=== PATIENT | female | born 1940 | race Hispanic/Latino ===

== ENCOUNTER → 2018-05-04 | Outpatient (CLI) | payer OTHER, MEDICARE ==
[~2018-05-04] MED LIST: AMLO10TA2 PO; ATOR20TA65 PO; FENO145T37 PO; GABA-529 PO; GLIP2.5T PO; HYDR12.54 PO; ISOS60TA4 PO; LEVO25TA54 PO; LINA5TAB PO; LISI40TA4 PO; METO50TA18 PO; PANT40TA25 PO; PARO10TA71 PO; REGADENOSON 0.4 MG/5 ML PF SYG IVP SCH; TRAM-355 PO
== END | disposition home or self-care (01) ==
LOC: SHCH 08:24
PROVIDERS: ATTEND Internal Medicine Cardiovascular Disease
DX: I25.10 Atherosclerotic heart disease of native coronary artery without angina pectoris (principal); I25.9 Chronic ischemic heart disease, unspecified
CPT/HCPCS: 78452; 93017; 96374; A9500 ×2; J2785

== ENCOUNTER 2020-12-27 18:19 | Observation (INO) | payer OTHER, MEDICARE ==
[~2020-12-27] VITALS: Ht 157.5 cm; Wt 79.5 kg
[~2020-12-27 18:19] MED LIST changes: +AMLO-258 PO; -AMLO10TA2 PO; +FENO145T26 PO; -FENO145T37 PO; -ISOS60TA4 PO; +ISOS60TA77 PO; -LISI40TA4 PO; +LISI40TA9 PO; -PANT40TA25 PO; +PANT40TA54 PO; -REGADENOSON 0.4 MG/5 ML PF SYG IVP SCH
[2020-12-27] MEDS ORDERED: ASPIRIN 81MG CHEW TAB ONE (18:40)
[2020-12-27 18:49] LABS: BASOPHILS % (AUTO) 0.6 % (0.0-5.0); EOSINOPHILS % (AUTO) 3.3 % (0.0-8.0); HEMATOCRIT 28.8 % (36-48); LYMPHOCYTES % (AUTO) 34.9 % (21.0-51.0); MEAN CORPUSCULAR HEMOGLOBIN 30.7 pg (27.0-33.0); MEAN CORPUSCULAR VOLUME 93.2 fL (79-99); MONOCYTES % (AUTO) 9.3 % (3.0-13.0); NEUTROPHILS % (AUTO) 51.7 % (40.0-77.0); PLATELET COUNT (AUTO) 245 K/uL (130-400); RED BLOOD CELL COUNT(AUTO) 3.09 MIL/uL (4.00-5.50); RED CELL DISTRIBUTION WIDTH 12.9 % (11.0-15.5); WHITE BLOOD COUNT (AUTO) 8.4 K/uL (4.8-10.8)
[2020-12-27 18:58] LABS: CREATININE 1.1 mg/dL (0.5-1.5); POTASSIUM 4.3 mmol/L (3.5-5.1)
[2020-12-27 19:00] LABS: INR 1.06 (0.85-1.15); PROTHROMBIN TIME 11.5 SEC (9.6-11.6)
[2020-12-27 19:03] LABS: ALBUMIN 3.4 g/dL (3.5-5.0); BILIRUBIN,TOTAL 0.3 mg/dL (0.2-1.0); TOTAL PROTEIN, SERUM 7.1 g/dL (6.0-8.3)
[2020-12-27] MEDS ORDERED: PANTOPRAZOLE 40 MG/VIAL ONE (19:40)
[2020-12-27] MEDS ORDERED: ONDANSETRON 4MG INJ IVP PRN (20:45)
[2020-12-27] MEDS ORDERED: ACETAMINOPHEN 325 MG TAB PO PRN (20:45)
[2020-12-27] MEDS ORDERED: GLUCAGON 1MG KIT 1 MG ML IM PRN (20:45)
[2020-12-27] MEDS ORDERED: DEXTROSE 50%-WATER 50 ML DISP.SYRIN IV PRN (20:45)
[2020-12-27] MEDS: INSULIN R PO SS1/2 SQ SCH (21:00)
[2020-12-27] MEDS: FAMOTIDINE 20MG VIAL IV SCH (21:00)
[2020-12-27 22:15] VITALS: BP 152/63
[2020-12-27] MEDS ORDERED: CARV12.511 PO (23:22)
[2020-12-27] MEDS ORDERED: GLIP5TAB11 PO (23:22)
[2020-12-27] MEDS ORDERED: MELO-106 PO (23:22)
[2020-12-27] MEDS ORDERED: METF-444 PO (23:22)
[2020-12-27] MEDS ORDERED: LISI1TAB53 PO (23:23)
[2020-12-27] MEDS ORDERED: MECL-160 PO (23:23)
[2020-12-27] MEDS ORDERED: AEC81 PO (23:23)
[2020-12-27] MEDS ORDERED: TERB250T89 PO (23:23)
[2020-12-28 03:18] VITALS: BP 142/72
[2020-12-28 03:56] LABS: BASOPHILS % (AUTO) 0.5 % (0.0-5.0); EOSINOPHILS % (AUTO) 3.8 % (0.0-8.0); LYMPHOCYTES % (AUTO) 29.7 % (21.0-51.0); MEAN CORPUSCULAR HEMOGLOBIN 30.1 pg (27.0-33.0); MEAN CORPUSCULAR HGB CONC 31.7 g/dL (32.0-36.0); MEAN CORPUSCULAR VOLUME 94.8 fL (79-99); MONOCYTES % (AUTO) 11.7 % (3.0-13.0); PLATELET COUNT (AUTO) 244 K/uL (130-400); RED BLOOD CELL COUNT(AUTO) 3.06 MIL/uL (4.00-5.50); RED CELL DISTRIBUTION WIDTH 13.1 % (11.0-15.5); WHITE BLOOD COUNT (AUTO) 7.4 K/uL (4.8-10.8)
[2020-12-28 04:14] LABS: HEMOGLOBIN A1C 6.1 % (4.0-6.0)
[2020-12-28 04:28] LABS: ALBUMIN 3.1 g/dL (3.5-5.0); BILIRUBIN,TOTAL 0.4 mg/dL (0.2-1.0); CREATININE 1.1 mg/dL (0.5-1.5); POTASSIUM 4.4 mmol/L (3.5-5.1); THYROID STIMULATING HORMONE 4.61 uIU/mL (0.36-3.74); TOTAL PROTEIN, SERUM 6.5 g/dL (6.0-8.3)
[2020-12-28] MEDS: INSULIN R PO SS1/2 SQ SCH ×4 (06:31→21:00)
[2020-12-28 08:00] VITALS: BP 141/56
[2020-12-28] MEDS ORDERED: ASPIRIN 81MG CHEW TAB PO SCH (09:00)
[2020-12-28 10:08] VITALS: BP 141/56
[2020-12-28 15:36] VITALS: BP 158/84
[2020-12-28 18:21] VITALS: BP 176/69
[2020-12-28 19:40] VITALS: BP 133/56
[2020-12-28] MEDS: FAMOTIDINE 20MG VIAL IV SCH (22:08)
[2020-12-29 00:08] VITALS: BP 145/69
[2020-12-29 04:01] VITALS: BP 156/65
[2020-12-29 05:49] LABS: BASOPHILS % (AUTO) 0.4 % (0.0-5.0); EOSINOPHILS % (AUTO) 3.1 % (0.0-8.0); HEMATOCRIT 29.5 % (36-48); LYMPHOCYTES % (AUTO) 28.6 % (21.0-51.0); MEAN CORPUSCULAR HEMOGLOBIN 31.3 pg (27.0-33.0); MEAN CORPUSCULAR HGB CONC 33.9 g/dL (32.0-36.0); MEAN CORPUSCULAR VOLUME 92.2 fL (79-99); NEUTROPHILS % (AUTO) 56.6 % (40.0-77.0); PLATELET COUNT (AUTO) 230 K/uL (130-400); RED CELL DISTRIBUTION WIDTH 12.7 % (11.0-15.5); WHITE BLOOD COUNT (AUTO) 6.8 K/uL (4.8-10.8)
[2020-12-29] MEDS: INSULIN R PO SS1/2 SQ SCH ×4 (05:58→20:51)
[2020-12-29 06:17] LABS: % IRON SATURATION 18.2 % (22-44)
[2020-12-29 06:40] LABS: CREATININE 1.1 mg/dL (0.5-1.5); POTASSIUM 4.3 mmol/L (3.5-5.1)
[2020-12-29 08:00] VITALS: BP 156/69
[2020-12-29 11:35] VITALS: BP 163/84
[2020-12-29] MEDS ORDERED: REGADENOSON 0.4 MG/5 ML PF SYG IVP SCH (11:45)
[2020-12-29] MEDS ORDERED: MECLIZINE HCL 25 MG TABLET PO PRN (12:45)
[2020-12-29] MEDS ORDERED: CLONIDINE HCL 0.2 MG TABLET PO ONE (13:55)
[2020-12-29 16:00] VITALS: BP 131/52
[2020-12-29 19:20] VITALS: BP 121/70
[2020-12-29] MEDS ORDERED: ATORVASTATIN 20 MG TABLET PO SCH (21:00)
[2020-12-29] MEDS ORDERED: FENOFIBRATE NANOCRYSTALLIZED 145 MG TAB PO SCH (21:00)
[2020-12-29] MEDS: CARVEDILOL 12.5 MG TABLET PO SCH (21:00)
[2020-12-29] MEDS: METFORMIN HCL 500 MG TABLET PO SCH (21:01)
[2020-12-29] MEDS: FAMOTIDINE 20MG VIAL IV SCH (21:08)
[2020-12-30 00:05] VITALS: BP 143/71
[2020-12-30] MEDS: CARVEDILOL 12.5 MG TABLET PO SCH ×2 (00:09→09:01)
[2020-12-30 04:04] VITALS: BP 145/68
[2020-12-30] MEDS: INSULIN R PO SS1/2 SQ SCH (06:09)
[2020-12-30] MEDS ORDERED: LEVOTHYROXINE 25 MCG TABLET PO SCH (06:30)
[2020-12-30 08:10] LABS: HEMATOCRIT 35.3 % (36-48); MEAN CORPUSCULAR HEMOGLOBIN 30.9 pg (27.0-33.0); MEAN CORPUSCULAR HGB CONC 32.9 g/dL (32.0-36.0); MEAN CORPUSCULAR VOLUME 93.9 fL (79-99); PLATELET COUNT (AUTO) 236 K/uL (130-400); RED BLOOD CELL COUNT(AUTO) 3.76 MIL/uL (4.00-5.50); RED CELL DISTRIBUTION WIDTH 12.7 % (11.0-15.5); WHITE BLOOD COUNT (AUTO) 7.4 K/uL (4.8-10.8)
[2020-12-30 08:29] LABS: ALBUMIN 3.3 g/dL (3.5-5.0); BILIRUBIN,TOTAL 0.8 mg/dL (0.2-1.0); POTASSIUM 4.8 mmol/L (3.5-5.1); TOTAL PROTEIN, SERUM 7.3 g/dL (6.0-8.3)
[2020-12-30 08:41] LABS: BASOPHILS % (MANUAL) 1 % (0-2); LYMPHOCYTES % (MANUAL) 18 % (22-44); MAN.DIFF COMMENT-IMPRESSION MANUAL DIFFERENTIAL; MONOCYTES % (MANUAL) 4 % (2-9); SEGMENTED NEUTROPHILS % 77 % (40-70)
[2020-12-30 08:43] LABS: PLATELET MORPHOLOGY COMMENT ADEQUATE
[2020-12-30] MEDS ORDERED: LISINOPRIL 20 MG TABLET PO SCH (09:00)
[2020-12-30] MEDS ORDERED: GLIPIZIDE 5 MG TABLET PO SCH (09:00)
[2020-12-30] MEDS ORDERED: ASPIRIN 81 MG EC TAB PO SCH (09:00)
[2020-12-30] MEDS ORDERED: HYDROCHLOROTHIAZIDE 25 MG TABLET PO SCH (09:00)
[2020-12-30] MEDS: METFORMIN HCL 500 MG TABLET PO SCH (09:01)
[2020-12-30 09:39] VITALS: BP 163/81
== END 2020-12-30 13:46 | disposition home or self-care (01) ==
LOC: EDH 18:19 → INTOOBSV 19:25 → EDHIP 19:25 → 4DH 22:21
PROVIDERS: ADMIT Internal Medicine Nephrology; ATTEND Internal Medicine Nephrology
DX: I25.119 Atherosclerotic heart disease of native coronary artery with unspecified angina pectoris (principal); Z20.822 Contact with and (suspected) exposure to COVID-19; E11.9 Type 2 diabetes mellitus without complications; D64.9 Anemia, unspecified; I10 Essential (primary) hypertension; N28.9 Disorder of kidney and ureter, unspecified; E03.9 Hypothyroidism, unspecified; F41.1 Generalized anxiety disorder; M19.90 Unspecified osteoarthritis, unspecified site; E78.00 Pure hypercholesterolemia, unspecified; E78.5 Hyperlipidemia, unspecified; I25.82 Chronic total occlusion of coronary artery; R09.89 Other specified symptoms and signs involving the circulatory and respiratory systems; I48.91 Unspecified atrial fibrillation; Z79.82 Long term (current) use of aspirin; Z79.84 Long term (current) use of oral hypoglycemic drugs; Z79.899 Other long term (current) drug therapy
CPT/HCPCS: 36415 ×4; 71045; 78452; 80048; 80053 ×3; 80061 ×2; 82550; 82728; 82948 ×10; 83036; 83540; 83550; 84443; 84484 ×3; 85025 ×4; 85610; 85730; 87426; 93005; 93017; 93306; 93356; 96374; 96376; 99291; A9500 ×2; C9113; G0378 ×63; J1815; J2785; J3490 ×2; U0003

== ENCOUNTER 2022-10-15 14:46 | Emergency (ER) | payer OTHER, MEDICARE ==
[~2022-10-15] VITALS: Ht 167.6 cm; Wt 70.3 kg
[~2022-10-15 14:46] MED LIST changes: +AEC81 PO; +CARV12.511 PO; -GABA-529 PO; -GLIP2.5T PO; +GLIP5TAB11 PO; -HYDR12.54 PO; -LINA5TAB PO; +LISI1TAB53 PO; -LISI40TA9 PO; +MECL-160 PO; +MELO-106 PO; +METF-444 PO; -METO50TA18 PO; -PANT40TA54 PO; -PARO10TA71 PO; +TERB250T89 PO; -TRAM-355 PO
[2022-10-15 15:10] VITALS: BP 147/70
[2022-10-15] MEDS ORDERED: TETANUS/DIPHTHERIA TOXOID [ADULT] 0.5 ML VIAL IM ONE ×2 (16:30→16:31)
[2022-10-15] MEDS ORDERED: OCTYL 2-CYANOACRYLATE 1 EACH TP ONE (16:31)
== END 2022-10-15 17:37 | disposition home or self-care (01) ==
LOC: EDH 14:46
DX: S91.104A Unspecified open wound of right lesser toe(s) without damage to nail, initial encounter (principal); E11.9 Type 2 diabetes mellitus without complications; E78.00 Pure hypercholesterolemia, unspecified; I10 Essential (primary) hypertension; Z90.49 Acquired absence of other specified parts of digestive tract; Z79.84 Long term (current) use of oral hypoglycemic drugs; Z79.899 Other long term (current) drug therapy; W45.8XXA Other foreign body or object entering through skin, initial encounter; Y93.89 Activity, other specified; Y92.89 Other specified places as the place of occurrence of the external cause; Y99.8 Other external cause status
CPT/HCPCS: 90471; 90714

== ENCOUNTER 2023-01-28 17:32 | Emergency (ER) | payer OTHER, MEDICARE ==
[~2023-01-28] VITALS: Ht 162.6 cm; Wt 73.9 kg
[2023-01-28 18:44] LABS: BASOPHILS % (AUTO) 0.7 % (0.0-5.0); HEMATOCRIT 25.6 % (36-48); LYMPHOCYTES % (AUTO) 31.8 % (21.0-51.0); MEAN CORPUSCULAR HEMOGLOBIN 30.7 pg (27.0-33.0); MEAN CORPUSCULAR HGB CONC 32.8 g/dL (32.0-36.0); MEAN CORPUSCULAR VOLUME 93.4 fL (79-99); NEUTROPHILS % (AUTO) 55.1 % (40.0-77.0); PLATELET COUNT (AUTO) 231 K/uL (130-400); RED BLOOD CELL COUNT(AUTO) 2.74 MIL/uL (4.00-5.50); RED CELL DISTRIBUTION WIDTH 13.4 % (11.0-15.5); WHITE BLOOD COUNT (AUTO) 7.4 K/uL (4.8-10.8)
[2023-01-28 19:28] LABS: CREATININE 1.2 mg/dL (0.5-1.5); POTASSIUM 3.4 mmol/L (3.5-5.1)
[2023-01-28 19:37] LABS: ALBUMIN 2.8 g/dL (3.5-5.0); TOTAL PROTEIN, SERUM 6.4 g/dL (6.0-8.3)
[2023-01-28] MEDS ORDERED: POTASSIUM BICARB/CIT AC 25 MEQ TABLET.EFF PO ONE (20:00)
[2023-01-28 20:38] VITALS: BP 185/69
== END 2023-01-28 20:43 | disposition home or self-care (01) ==
LOC: EDH 17:32
DX: I10 Essential (primary) hypertension (principal); E87.6 Hypokalemia; E11.9 Type 2 diabetes mellitus without complications; E78.00 Pure hypercholesterolemia, unspecified; Z79.1 Long term (current) use of non-steroidal anti-inflammatories (NSAID); Z79.82 Long term (current) use of aspirin; Z79.84 Long term (current) use of oral hypoglycemic drugs; Z79.899 Other long term (current) drug therapy; Z90.49 Acquired absence of other specified parts of digestive tract
CPT/HCPCS: 36415; 80053; 84484; 85025; 93005

== ENCOUNTER → 2023-02-02 | Outpatient (CLI) | payer OTHER, MEDICARE ==
[2023-02-02 13:40] LABS: CREATININE 1.3 mg/dL (0.5-1.5); POTASSIUM 3.6 mmol/L (3.5-5.1)
== END | disposition home or self-care (01) ==
LOC: LAB 11:29
PROVIDERS: ATTEND Internal Medicine Cardiovascular Disease
DX: I10 Essential (primary) hypertension (principal)
CPT/HCPCS: 36415; 80048

== ENCOUNTER 2023-02-03 11:34 | Emergency (ER) | payer OTHER, MEDICARE ==
[~2023-02-03] VITALS: Ht 167.6 cm; Wt 72.6 kg
[2023-02-03] MEDS ORDERED: LABETALOL 20MG SYG IV ONE (12:30)
[2023-02-03 12:48] LABS: BASOPHILS % (AUTO) 0.5 % (0.0-5.0); EOSINOPHILS % (AUTO) 1.8 % (0.0-8.0); HEMATOCRIT 23.3 % (36-48); MEAN CORPUSCULAR HEMOGLOBIN 30.6 pg (27.0-33.0); MEAN CORPUSCULAR HGB CONC 33.5 g/dL (32.0-36.0); MEAN CORPUSCULAR VOLUME 91.4 fL (79-99); MONOCYTES % (AUTO) 10.9 % (3.0-13.0); NEUTROPHILS % (AUTO) 53.5 % (40.0-77.0); PLATELET COUNT (AUTO) 222 K/uL (130-400); RED BLOOD CELL COUNT(AUTO) 2.55 MIL/uL (4.00-5.50); RED CELL DISTRIBUTION WIDTH 13.6 % (11.0-15.5); WHITE BLOOD COUNT (AUTO) 6.3 K/uL (4.8-10.8)
[2023-02-03] MEDS ORDERED: HYDRALAZINE 25MG TABLET PO SCH (13:00)
[2023-02-03] MEDS ORDERED: HYDRALAZINE 20MG/ML VIAL IV ONE (13:00)
[2023-02-03 13:18] LABS: ALBUMIN 2.5 g/dL (3.5-5.0); CREATININE 1.4 mg/dL (0.5-1.5); POTASSIUM 3.3 mmol/L (3.5-5.1); TOTAL PROTEIN, SERUM 5.9 g/dL (6.0-8.3)
[2023-02-03 13:57] VITALS: BP 150/54
== END 2023-02-03 14:09 | disposition home or self-care (01) ==
LOC: EDH 11:34
DX: R42 Dizziness and giddiness (principal); E11.9 Type 2 diabetes mellitus without complications; E78.00 Pure hypercholesterolemia, unspecified; I10 Essential (primary) hypertension; Z90.49 Acquired absence of other specified parts of digestive tract; Z79.899 Other long term (current) drug therapy; Z79.84 Long term (current) use of oral hypoglycemic drugs; Z79.82 Long term (current) use of aspirin; Z79.1 Long term (current) use of non-steroidal anti-inflammatories (NSAID)
CPT/HCPCS: 99285; 96374; 70450; 71045; 80053; 85025; 36415; 93005; J0360

== ENCOUNTER 2024-03-13 21:27 | Emergency (ER) | payer OTHER, MEDICARE ==
[~2024-03-13] VITALS: Ht 160 cm; Wt 65.8 kg
[~2024-03-13 21:27] MED LIST changes: -AEC81 PO; +ATOR10 PO; -CARV12.511 PO; +CARV25TA PO; +CHLO25TA3 PO; +CYAN-35 PO; +EMPA25TA PO; -GLIP5TAB11 PO; +HYDR50TA37 PO; -MECL-160 PO; +MECL-302 PO; -MELO-106 PO; +MELO-108 PO; +VITAD50000 PO
[2024-03-13 22:11] LABS: BASOPHILS # (AUTO) 0.07 K/uL (0.00-0.20); BASOPHILS % (AUTO) 0.6 % (0.0-5.0); EOSINOPHILS # (AUTO) 0.22 K/uL (0.00-0.70); EOSINOPHILS % (AUTO) 1.9 % (0.0-8.0); HEMATOCRIT 22.8 % (36-48); IMMATURE GRANULOCYTE ABSOLUTE 0.06 K/uL (0-1); LYMPHOCYTES # (AUTO) 3.4 K/uL (1.0-4.8); LYMPHOCYTES % (AUTO) 28.6 % (21.0-51.0); MEAN CORPUSCULAR HEMOGLOBIN 33.2 pg (27.0-33.0); MEAN CORPUSCULAR HGB CONC 35.1 g/dL (32.0-36.0); MEAN CORPUSCULAR VOLUME 94.6 fL (79-99); MONOCYTES % (AUTO) 8.4 % (3.0-13.0); NEUTROPHILS # (AUTO) 7.1 K/uL (1.8-7.7); PLATELET COUNT (AUTO) 263 K/uL (130-400); RED BLOOD CELL COUNT(AUTO) 2.41 MIL/uL (4.00-5.50); RED CELL DISTRIBUTION WIDTH 13.9 % (11.0-15.5); WHITE BLOOD COUNT (AUTO) 11.8 K/uL (4.8-10.8)
[2024-03-13 22:30] LABS: ALBUMIN 2.4 g/dL (3.5-5.0); BILIRUBIN,TOTAL 0.4 mg/dL (0.2-1.0); CREATININE 0.9 mg/dL (0.5-1.0); POTASSIUM 4.1 mmol/L (3.5-5.1); TOTAL PROTEIN, SERUM 6.2 g/dL (6.0-8.3)
[2024-03-13] MEDS ORDERED: IOHEXOL-350 75 ML VIAL IV ONE (23:19)
[2024-03-13 23:47] LABS: APPEARANCE,URINE CLOUDY (CLEAR); BILIRUBIN,URINE NEGATIVE (NEGATIVE); COLOR,URINE LIGHT-YELLOW (YELLOW); GLUCOSE, URINE (UA) NEGATIVE (NEGATIVE); KETONES,URINE NEGATIVE (NEGATIVE); LEUKOCYTE ESTERASE ,URINE 500 Leu/uL (NEGATIVE); NITRATE,URINE NEGATIVE (NEGATIVE); PROTEIN,URINE 100 mg/dL (NEGATIVE); UROBILINOGEN,URINE 0.2 mg/dL (0.2-1.0)
[2024-03-13 23:48] LABS: ADD UA MICROSCOPIC YES
[2024-03-13 23:50] LABS: BACTERIA,URINE MOD /HPF (None Seen); MUCUS,URINE RARE LPF (None Seen); SQUAMOUS EPITHELIAL CELL,UR FEW /HPF (0-2); WBC CLUMP FEW /HPF (0-1); WBC,URINE 51-100 /HPF (0-1)
[2024-03-14 00:32] VITALS: BP 158/55; PULSE 58; RESP 14; O2SAT 100
[2024-03-14] MEDS ORDERED: FINE10TA PO (00:57)
[2024-03-14] MEDS ORDERED: HYDR100T27 PO (00:57)
[2024-03-14] MEDS ORDERED: AMLO-257 PO (00:57)
[2024-03-14] MEDS ORDERED: CHOL378P14 PO (00:57)
[2024-03-14] MEDS ORDERED: ATOR40TA71 PO (00:57)
[2024-03-14] MEDS ORDERED: PANT40TA54 PO (00:57)
[2024-03-14] MEDS ORDERED: METO10TA3 PO (00:57)
[2024-03-14] MEDS ORDERED: LISI40TA9 PO (00:57)
[2024-03-14] MEDS ORDERED: LEVO50TA11 PO (00:57)
[2024-03-14] MEDS ORDERED: METF-446 PO (00:57)
== END 2024-03-14 02:15 ==
LOC: EDH 21:27
DX: D64.9 Anemia, unspecified (principal); E11.9 Type 2 diabetes mellitus without complications; E78.00 Pure hypercholesterolemia, unspecified; I10 Essential (primary) hypertension; Z79.84 Long term (current) use of oral hypoglycemic drugs; Z79.890 Hormone replacement therapy; Z79.899 Other long term (current) drug therapy
CPT/HCPCS: 99285; 74177; 71045; 82270; 80053; 85025; 86850; 86900; 86901; 87077; 87088; 87186; 81001; 36415; Q9967

== ENCOUNTER 2025-08-27 23:40 | Inpatient (IN) | payer OTHER, MEDICAID ==
[~2025-08-27] VITALS: Ht 167.6 cm; Wt 77.6 kg
[~2025-08-27 23:40] MED LIST changes: +AMLO-257 PO; +ATOR40TA71 PO; +CHOL378P14 PO; +FINE10TA PO; +HYDR100T15 PO; +LEVO50TA11 PO; +LISI40TA15 PO; +METF-446 PO; +METO10TA3 PO; +PANT40TA54 PO
[2025-08-28] VITALS (46 sets, daily range): BP systolic 114–152; BP diastolic 61–96; PULSE 80–113; RESP 14–28; TEMP 97.6–98.8; O2SAT 92–100
--- NOTE | 2025-08-28 00:04 | EKG ---
[facility] Test Date: 2025-08-27 Test Time: 23:59:55 Pat Name: HUSSAIN STRONG Department: ED Room: 215 Gender: F Ld Teacher: [id number] : [id number] Requested By: SUSIE SALINAS Order Number: [id number] Reading MD: Deonna Thompson Measurements Intervals Media Rate: 118 P: 82 OK: 148 QRS: -37 QRSD: 122 T: 115 QT: 340 QTc: 477 Interpretive Statements Sinus tachycardia Left bundle branch block Compared to ECG 11/24/2023 11:35:08 Left bundle-branch block now present Sinus rhythm no longer present Left anterior fascicular block no longer present Left ventricular hypertrophy no longer present Myocardial infarct finding no longer present Electronically Signed On 08-30-2025 10:14:24 CDT by Deonna Thompson Please click the below link to view image of tracing.
--- NOTE | 2025-08-28 00:25 | ERN ---
ED Note History of Present Illness Stated Complaint: SOB FROM [facility] Chief Complaint: Shortness of Breath Time Seen by MD: 23:46 Dictation: This is an 85-year-old female who was transferred from [facility] for evaluation of shortness of breath. Apparently when EMS picked her up her sats were 85% on 5 L O2 via nasal cannula they increased it to 10 L via non-rebreather mask gave her an albuterol nebulizer treatment and brought her to the emergency room for further evaluation. Her O2 sats improved to 95% by the time she came to the triage. She does report some wheezing. Temperature 98 pulse 117 respiratory rate 18 blood pressure 158/92 with a pulse oximetry of 95% on room air Her chronic medical problems include anemia, coronary artery disease, diabetes mellitus, hypertension, hypercholesterolemia, gastroesophageal reflux disease, hypothyroidism, history of CHF, CKD, Perez's esophagus Allergies: Coded Allergies: No Known Allergies (Verified Allergy, Unknown, 12/27/20) Home Meds Reported Medications Metoclopramide HCl (Metoclopramide HCl) 10 Mg Tablet, 1 TAB PO TID for acid reflux 03/14/24 Atorvastatin Calcium (Atorvastatin Calcium) 40 Mg Tablet, 1 TAB PO DAILY 03/14/24 Levothyroxine Sodium (Levothyroxine Sodium) 50 Mcg Tablet, 1 TAB PO DAILY 03/14/24 Metformin HCl (Metformin HCl) 1,000 Mg Tablet, 1 TAB PO BID for diabetes mellitus 03/14/24 Amlodipine Besylate (Amlodipine Besylate) 5 Mg Tablet, 1 TAB PO DAILY for blood pressure 03/14/24 Lisinopril (Lisinopril) 40 Mg Tablet, 1 TAB PO BID 03/14/24 Finerenone (Kerendia) 10 Mg Tablet, 1 TAB PO DAILY 03/14/24 Cholestyramine (with Sugar) (Cholestyramine Powder) 4 Gram Powder, 4 GM PO DAILY 03/14/24 Hydralazine HCl (Hydralazine HCl) 100 Mg Tablet, 1 TAB PO BID 03/14/24 Pantoprazole Sodium (Pantoprazole Sodium) 40 Mg Tablet.dr, 1 TAB PO DAILY 03/14/24 Meloxicam (Meloxicam) 15 Mg Tablet, 15 MG PO AM, TAB 03/21/23 Carvedilol (Carvedilol) 25 Mg Tablet, 25 MG PO BID, TAB 03/21/23 Cholecalciferol (Vitamin D3) 50,000 Units Cap, 66018 UNITS PO QWEEK, CAP 02/25/23 Cyanocobalamin (Vitamin B-12) (Vitamin B-12) 1,000 Mcg Capsule, 1000 MCG PO AD, CAP TWICE WEEKLY 02/25/23 Chlorthalidone (Chlorthalidone) 25 Mg Tablet, 25 MG PO DAILY, TAB 02/25/23 Atorvastatin Calcium (LIPITOR) 20 Mg Tab, 20 MG PO HS, TAB 02/25/23 Empagliflozin (Jardiance) 25 Mg Tablet, 25 MG PO DAILY, TAB 02/25/23 Hydralazine HCl (Hydralazine HCl) 50 Mg Tablet, 50 MG PO BID, TAB 02/25/23 Meclizine HCl (Meclizine HCl) 25 Mg Tablet, 25 MG PO Q6HPRN PRN for DIZZINESS, TAB 12/27/20 Terbinafine HCl (Terbinafine HCl) 250 Mg Tablet, 250 MG PO DAILY, TAB 12/27/20 Lisinopril/Hydrochlorothiazide (Lisinopril-Hctz 20-25 mg Tab) 1 Each Tablet, 1 EACH PO DAILY, TAB 12/27/20 Metformin HCl (Metformin HCl) 500 Mg Tablet, 500 MG PO BID, TAB 12/27/20 Isosorbide Mononitrate (Isosorbide Mononitrate ER) 60 Mg Tab.er.24h, 60 MG PO DAILY, TAB 12/08/16 Levothyroxine Sodium (Levothyroxine Sodium) 25 Mcg Tablet, 25 MCG PO DAILY, TAB 12/08/16 Fenofibrate Nanocrystallized (Fenofibrate) 145 Mg Tablet, 145 MG PO DAILY, TAB 12/08/16 Atorvastatin Calcium (Atorvastatin Calcium) 20 Mg Tablet, 20 MG PO HS, TAB 12/08/16 Amlodipine Besylate (Amlodipine Besylate) 10 Mg Tablet, 10 MG PO DAILY, TAB 12/08/16 Past Medical History Past Medical History: Anemia, CAD, Diabetes-Type II, GERD, High Cholesterol, Hypertension, Hypothyroid, Hypotension, Renal Disese Additional Past Medical Hx: HEART FAILURE, BARRETTS ESOPHAGUS, Surgical History: Other Surgical History Other: BLADDER SURGERY Family History: Negative Social History: Negative, Lives with family History: Not Applicable RN Note Reviewed/Agreed w/PFSH: Yes Review of System Dictation Constitutional: Negative for fever,chills, and weight loss Eyes: Negative for injury, pain,redness, and discharge ENT: Negative for injury,pain or swelling Cardiovascular: Negative for chest pain, palpitations, and edema Respiratory: Positive for shortness of breath, cough, and wheezing, Abdomen/GI: Negative for abdominal pain, nausea, vomiting, diarrhea, and constipation Back: Negative for injury and pain : Negative for injury, bleeding and discharge MS/Extremity: Negative for injury and deformity Skin: Negative for rash, and discoloration Neuro: Negative for headache, weakness, numbness, tingling, and seizure Psych: Negative for suicide ideation, homicidal ideation, and hallucinations Initial Vital Sign VS Vital Signs Date Time Temp Pulse Resp B/P (MAP) Pulse Ox O2 Delivery O2 Flow Rate FiO2 08/27/25 23:42 98.1 117 18 158/92 95 Nonrebreathing Mask 10.0 08/28/25 00:12 100 Physical Exam Dictation General: awake, alert, appears comfortable on BiPAP able to speak and answer questions Head/Face: Normocephalic, atraumatic Eyes: PERRL, EOMI, vision at baseline ENT: oral cavity clear, TMs clear, no signs of infection Neck: Trachea midline, supple, no nuchal rigidity Cardiovascular: RRR, normal S1/S2, No MRGs, no JVD Respiratory: Mild respiratory distress, diffuse wheezes Abdomen: Soft, non-tender, non-distended, normal bowel sounds, no guarding or rebound. Skin: Warm, dry, normal turgor, no rash MS/Extremity: Pulses equal, no cyanosis, neurovascular intact, FROM Neuro: COAx4, GCS 15, strength 5/5, CN 2-12 intact, normal cerebellar exam, normal gait, Psych: Normal behavior, mood, and affect normal Extremities-1+ edema without any palpable cords, Homans sign is negative Results (Laboratory/Radiology) Laboratory/Radiology Laboratory Tests Test 08/28/25 00:05 08/28/25 00:41 08/28/25 00:44 White Blood Count 17.5 K/uL (4.8-10.8) H Red Blood Count 2.37 MIL/uL (4.00-5.50) L Hemoglobin 7.6 g/dL (12.0-16.0) L Hematocrit 23.1 % (36-48) L Mean Corpuscular Volume 97.5 fL (79-99) Mean Corpuscular Hemoglobin 32.1 pg (27.0-33.0) Mean Corpuscular Hemoglobin Concent 32.9 g/dL (32.0-36.0) Red Cell Distribution Width 14.6 % (11.0-15.5) Platelet Count 254 K/uL (130-400) Mean Platelet Volume 10.4 fL (7.5-10.5) Immature Granulocyte % (Auto) 1.0 % (0-1) Neutrophils (%) (Auto) 84.4 % (40.0-77.0) H Lymphocytes (%) (Auto) 5.6 % (21.0-51.0) L Monocytes (%) (Auto) 8.9 % (3.0-13.0) Eosinophils (%) (Auto) 0.0 % (0.0-8.0) Basophils (%) (Auto) 0.1 % (0.0-5.0) Neutrophils # (Auto) 14.7 K/uL (1.8-7.7) H Lymphocytes # (Auto) 1.0 K/uL (1.0-4.8) Monocytes # (Auto) 1.6 K/uL (0.1-1.0) H Eosinophils # (Auto) 0.00 K/uL (0.00-0.70) Basophils # (Auto) 0.01 K/uL (0.00-0.20) Absolute Immature Granulocyte (auto 0.17 K/uL (0-1) Nucleated Red Blood Cells 0.0 % (0.0-0.19) White Cell Morphology Comment See comments Sodium Level 135 mmol/L (136-145) L Potassium Level 4.2 mmol/L (3.5-5.1) Chloride Level 97 mmol/L (101-111) L Carbon Dioxide Level 18 mmol/L (21-32) L Blood Urea Nitrogen 77 mg/dL (7-18) *H Creatinine 3.0 mg/dL (0.5-1.0) H Glomerular Filtration Rate Calc 15 mL/min (>90) Random Glucose 379 mg/dL (70-105) H Lactic Acid Level 5.8 mmol/L (0.8-2.5) H Total Calcium 7.5 mg/dL (8.5-10.1) L Total Creatine Kinase 323 U/L (21-232) H Troponin I High Sensitivity 2392.4 ng/L (4-50) *H Blood Gas Specimen Type Arterial Arterial Blood pH 7.392 (7.350-7.450) Arterial Blood Partial Pressure CO2 29 mmHg (32-45) L Arterial Blood Partial Pressure O2 84.4 mmHg (83.0-108.0) Arterial Blood HCO3 17.2 mmol/L (21.0-28.0) L Arterial Blood Oxygen Saturation 96.4 % (94.0-98.0) Arterial Blood Base Excess -6.2 mmol/L (-2.0-3.0) L Blood Gas Temperature 37.0 CELSIUS (35.5-37.0) Blood Gas Flow-by 15.00 L/min (0.00-15.00) Blood Gas Vent Mode RR NRB (ROOM AIR) FiO2 100.0 % Blood Gas Specimen Comment CONCHITA LEO Influenza Type A Antigen Negative For Type A Influenza Type B Antigen Negative For Type B SARS-CoV-2 Antigen (Rapid) PRESUMPTIVE NEGATIVE Group A Streptococcus Rapid negative (NEGATIVE) Labs Reviewed?: Yes EKG Comment: 12 lead EKG done on 08/27/2025 at 11:59 p.m. shows a heart rate of 118, FL interval 148, QRS 122, QT/QTC 340/477 Impression sinus tachycardia with diffuse ST-T changes and left bundle branch block. EKG rhythm strip shows sinus tachycardia with a slightly prolonged QT nonspecific changes. Interpreted by ER MD Dr. Inman Ultrasound Comment: Echocardiogram-2020 Conclusion There is hypokinesis in the apical septal and apical wall. Global Strain is normal -21. LVEF is 50-55%. There is mild left ventricular hypertrophy. DICTATED BY: CRISTIANA COBIAN MD DATE: 12/29/20 1205 ELECTRONICALLY SIGNED BY: CRISTIANA COBIAN MD DATE: 12/29/[id number] 0 ED Course ED Course Orders Procedure Category Date Status Time Iv Insertion CPOE 08/27/25 Transmitted 23:52 Pulse Ox(Continuous) RT 08/27/25 Transmitted 23:52 Vital Signs Per CPOE 08/27/25 Transmitted Routine 23:52 12 Lead Ekg Tracing- EKG 08/27/25 Complete Technical 23:52 Cbc With Differential LAB 08/27/25 Complete 23:52 Blood Cult ANANYA 08/27/25 In Process 23:52 Urinalysis Profile LAB 08/27/25 Logged 23:52 Culture Urine ANANYA 08/27/25 Logged 23:52 Lactic Acid LAB 08/27/25 Complete 23:52 Basic Metabolic Panel LAB 08/27/25 Complete 23:52 Covid19 (Sars Antigen LAB 08/27/25 Complete Rapid) 23:54 Influenza Type A & B, LAB 08/27/25 Complete Rapid 23:54 Rapid (Group A Strep) LAB 08/27/25 Complete 23:54 Chest 1vw RAD 08/27/25 Resulted 23:56 Ipratropium/Albuterol PHA 08/28/25 Complete Neb (Duoneb) 00:30 Arterial Blood Gas RT 08/28/25 Transmitted 00:25 Cardiac Panel LAB 08/28/25 Complete 00:05 Arterial Blood Gas LAB 08/28/25 Complete 00:41 Bipap Settings RT 08/28/25 Transmitted 00:54 Methylprednisolone PHA 08/28/25 Complete Succ 125mg (Solu-Medr 01:00 B-Type Natriuretic LAB 08/28/25 In Process Peptide 00:55 Lactic Acid LAB 08/28/25 In Process 00:55 Initiate Heparin LEXIE 08/28/25 In Process Treatment Pro 00:55 Cbc With Differential LAB 08/29/25 Verified 04:00 Cbc With Differential LAB 09/01/25 Verified 04:00 Cbc With Differential LAB 09/04/25 Verified 04:00 Partial LAB 08/28/25 In Process Thromboplastin Time 00:55 Heparin 5,000 Unit PHA 08/28/25 In Process Vial (Heparin 5,000 U 02:00 Heparin 25,000 PHA 08/28/25 In Process Units/250ml D5w 02:00 Heparin Protocol CPOE 08/28/25 Transmitted Monitoring 00:55 Ketone Blood LAB 08/28/25 In Process Quantitative 00:55 Furosemide 40mg Vial PHA 08/28/25 Verified (Lasix 40mg Vial) 02:00 Zosyn 3.375gm+Ns 50ml PHA 08/28/25 Verified (Zosyn 3.375gm+Ns 02:00 Vancomycin 1g/250ml PHA 08/28/25 Verified Kit (Vancomycin 1g/2 02:00 Current Medications Medications (Trade) Dose Ordered Sig/David Route PRN Reason Start Time Stop Time Status Last Admin Dose Admin Albuterol (DUOneb) 1 UDVIAL ONCE ONCE IH 08/28/25 00:30 08/28/25 00:31 DC 08/28/25 00:19 Heparin Sodium (Porcine) (HEParin 5,000 UNIT VIAL) *calculation based on ACTUAL B... AD PRN IV HEPARIN PROTOCOL 08/28/25 02:00 09/27/25 01:59 Heparin Sodium/ Dextrose 250 ml @ 0 mls/hr Q6H IV 08/28/25 02:00 09/27/25 01:59 Methylprednisolone Sodium Succinate (Solu-medROL 125MG) 125 mg ONCE ONCE IVP 08/28/25 01:00 08/28/25 01:03 DC 08/28/25 01:45 Vital Signs Date Time Temp Pulse Resp B/P (MAP) Pulse Ox O2 Delivery O2 Flow Rate FiO2 08/28/25 01:18 119 18 151/83 99 Bi-PAP+ 50 08/28/25 00:50 111 28 50 08/28/25 00:19 113 18 08/28/25 00:12 98.2 113 21 158/83 98 Non-Rebreather+ 15 100 08/27/25 23:42 98.1 117 18 158/92 95 Nonrebreathing Mask 10.0 We will perform diagnostic labs, advanced imaging and administer medications according to the patient's complaint. Once the results are available, will review and personally interpreted the labs to rule out any acute life- threatening emergency the trach require immediate intervention and treatment. I will then re-evaluate the patient after treatment and diagnostic exams have return to determine whether the patient requires any further testing, can safely be discharged home or need further admission to hospital for additional treatment and evaluation. 2:05 a.m. Patient accepted by patient to intensive care unit and further management Medical Decision Making MDM Differential diagnosis: Pneumonia, decompensated congestive heart failure, sepsis, new coronary event, pulmonary thromboembolic disease This is an 85-year-old female who was transferred from [facility] for evaluation of shortness of breath. Apparently when EMS picked her up her sats were 85% on 5 L O2 via nasal cannula they increased it to 10 L via non-rebreather mask gave her an albuterol nebulizer treatment and brought her to the emergency room for further evaluation. Her O2 sats improved to 95% by the time she came to the triage. She does report some wheezing. Temperature 98 pulse 117 respiratory rate 18 blood pressure 158/92 with a pulse oximetry of 95% on room air Her chronic medical problems include anemia, coronary artery disease, diabetes mellitus, hypertension, hypercholesterolemia, gastroesophageal reflux disease, hypothyroidism, history of CHF, CKD, Perez's esophagus 1:00 a.m. labs reviewed CBC showed a white count of 17.5 hemoglobin of 7.6 platelets 254. Arterial blood gas on 100% non-rebreather mask shows a pH of 7.39 pCO2 of 29 PO2 of 84 BNP 7 is significant for sodium of 135 chloride 97 bicarb 18 BUN and creatinine are 77 and 3.0 with a glucose of 379 lactic acid 5.8. First set of troponin is 2392 and total CK is 323 Chest x-ray is pending , patient initiated on heparin drip. She has no chest pain, did not want to take aspirin 2:00 a.m. chest x-ray shows extensive right lung pneumonia with a parapneumonic effusion. There might be a slight pleural effusion on the left side as well Swabs for influenza COVID and strep were all negative. Serum ketones are pending We will admit patient to intensive care unit for close monitoring Empiric Zosyn and vancomycin given to cover sepsis and pneumonia as patient is from a snf facility Rationale: Tests considered and ordered secondary to shared decision making include: labs, ECG and radiology Previous outside records reviewed: Old ER visits. Risk of complication and/or morbidity or mortality of patient management: None Medications-Per medication reconciliation Need for hospitalization: Patient does meet criteria for hospitalization. Need for emergency major/minor surgery: No There are no social concerns with this patient. Prescription drug management Prescriptions will include symptomatic care Patient's prior external medical records from other ER visits were reviewed by me as indicated. Prior testing and results from previous visits were reviewed. Prior tests were taken into account with medical decision making and resource utilization, independent historian/historians were used to obtain complete medical history. I independently interpreted the test that were performed, results were reviewed by me and considered findings on radiology if ordered. Medical management and examination interpretation discussions were had by me w ith other qualified healthcare professionals as indicated for the patient's care. Problem List Problem List: (1) Severe sepsis (2) Acute respiratory failure with hypoxia (3) BiPAP (biphasic positive airway pressure) dependence (4) Acute non-ST elevation myocardial infarction (NSTEMI) (5) Lactic acidosis (6) Acute on chronic renal failure (7) Chronic anemia (8) Increased anion gap metabolic acidosis (9) Pneumonia (10) Parapneumonic effusion Critical Care Note Critical Time: 60 minutes Comment(s) Life-threatening illness; severe sepsis, pneumonia with parapneumonic effusion, acute respiratory failure with hypoxia, BiPAP dependence, lactic acidosis Risk of morbidity mortality-high Complexity of medical decision making-high (X) high probability of sudden clinically significant deterioration in the patient's condition required the highest level of my preparedness to intervene urgently. I provided critical care services requiring my direct and personal management as noted below; (x) chart data review (x) reviewing nurse's notes and/charts (x) documentation time (x) consultation collaboration on findings and therapy options (x) medication orders and management (x) re-evaluations (x) care, transfer of care, and discharge plans (x) ordering and interpreting studies (x) ordering and reviewing labs (x) obtaining necessary history from family, EMS, [facility], private MD, surrogate decision makers because patient was unable to give history due to limitations in the mental status (x) aggregate critical care time was ( 67 ) minutes. This includes only time during which I was engaged in work directly related to the patient's care as described above whether at the bedside or elsewhere in the ER while the patient was critical. My time did not include minutes spent treating any other patients simultaneously or on activities that did not directly contribute to the patient's treatment. It did not include time spent performing other reported procedures or services of residents if any. Miracle WHITFIELDCP DX & DISP Disposition: Inpatient Decision to Admit Time: 02:00 Departure Impression: Primary Impression: Severe sepsis Additional Impressions: Acute non-ST elevation myocardial infarction (NSTEMI), Acute respiratory failure with hypoxia, Acute on chronic renal failure, Generalized weakness, Pneumonia, Parapneumonic effusion Condition: Stable Additional Instructions: Patient was informed of all the diagnostic labs and procedures conducted in the emergency room today and demonstrated understanding of the results. I personally reviewed and interpreted all the diagnostic exams performed in the ER today. The patient will be admitted to the hospital for further treatment and evaluation. Disposition-admit to facility Condition-stable/guarded Course-uncertain at this time Pain status-decreased Assessment-exam unchanged Admission Certification- I certify that the patients status is appropriate and is based on my best clinical judgment and the patient's condition as documented in the medical records Referrals: CHANCE MEDINA MD (PCP) MIRACLE INMAN MD Aug 28, 2025 00:25
[2025-08-28 00:42] LABS: ABG BASE EXCESS -6.2 mmol/L (-2.0-3.0); ABG HCO3 17.2 mmol/L (21.0-28.0); ABG OXYGEN SATURATION 96.4 % (94.0-98.0); ABG PCO2 29 mmHg (32-45); ABG PH 7.392 (7.350-7.450); PO2, ARTERIAL BG 84.4 mmHg (83.0-108.0); TEMPERATURE, CELSIUS BG 37.0 CELSIUS (35.5-37.0); VENT MODE, BG RR NRB (ROOM AIR)
[2025-08-28 00:44] LABS: CREATINE KINASE, TOTAL 323.0 U/L (21-232); CREATININE 3.0 mg/dL (0.5-1.0); GLOMERULAR FILTR. RATE CALC 15.0 mL/min (>90); GLUCOSE,RANDOM 379.0 mg/dL (70-105); IMMATURE GRANULOCYTE ABSOLUTE 0.17 K/uL (0-1); NUCLEATED RED BLOOD CELLS 0.0 % (0.0-0.19); PLATELET COUNT (AUTO) 254 K/uL (130-400); RED BLOOD CELL COUNT(AUTO) 2.37 MIL/uL (4.00-5.50); RED CELL DISTRIBUTION WIDTH 14.6 % (11.0-15.5); SODIUM SERUM 135.0 mmol/L (136-145); WHITE BLOOD COUNT (AUTO) 17.5 K/uL (4.8-10.8)
[2025-08-28 00:45] LABS: UREA NITROGEN, BLOOD 77.0 mg/dL (7-18)
[2025-08-28 01:19] LABS: RAPID GROUP A STREP negative (NEGATIVE)
[2025-08-28 01:30] LABS: COVID19 (SARS ANTIGEN RAPID) PRESUMPTIVE NEGATIVE (NEGATIVE); INFLUENZA TYPE A Negative For Type A (NEGATIVE); INFLUENZA TYPE B Negative For Type B (NEGATIVE)
--- NOTE | 2025-08-28 01:52 | HMCIMG ---
EXAM: CR Chest, 1 view CLINICAL HISTORY: Shortness of breath. COMPARISON: Chest radiograph dated 03/13/2024. FINDINGS: Multifocal airspace disease in the bilateral lung marley, more pronounced on the right side, concerning multifocal pneumonia. Small pleural effusions bilaterally, more pronounced on the right side. No pneumothorax. Stable cardiac size. Stable mild COPD. No acute osseous abnormality. IMPRESSION: Multifocal airspace disease in the bilateral lung marley, more pronounced on the right side, concerning multifocal pneumonia. Small pleural effusions bilaterally, more pronounced on the right side. Overall, there is an interval worsening compared to the previous examination. /Lovely
[2025-08-28] MEDS: ZOSYN 3.375GM +NS 50ML IV ONE (02:07)
[2025-08-28] MEDS ORDERED: PHARMACY COMMUNICATION MISC SCH ×2 (02:30→16:00)
--- NOTE | 2025-08-28 03:00 | NUR ---
PLACED ON A [facility] SYSTEM.
--- NOTE | 2025-08-28 03:21 | NUR ---
SETH MACHINE ASSISTANT CALLED FOR CONSULT, NO ORDERS GIVEN.
[2025-08-28] MEDS: VANCOMYCIN KIT 1 GM/250 ML IV.KIT IV ONE (04:06)
--- NOTE | 2025-08-28 04:37 | NUR ---
SON AT BEDSIDE.
[2025-08-28 05:12] LABS: APPEARANCE,URINE CLEAR (CLEAR); GLUCOSE, URINE (UA) 200 mg/dL (NEGATIVE); LEUKOCYTE ESTERASE ,URINE 25 Leu/uL (NEGATIVE); NITRATE,URINE NEGATIVE (NEGATIVE); OCCULT BLOOD,URINE SMALL (NEGATIVE)
[2025-08-28 05:15] LABS: ADD UA MICROSCOPIC YES
[2025-08-28 05:37] LABS: SQUAMOUS EPITHELIAL CELL,UR RARE /HPF (0-2)
[2025-08-28 07:25] LABS: IMMATURE GRANULOCYTE ABSOLUTE 0.22 K/uL (0-1); NUCLEATED RED BLOOD CELLS 0.0 % (0.0-0.19); PLATELET COUNT (AUTO) 224 K/uL (130-400); RED BLOOD CELL COUNT(AUTO) 2.36 MIL/uL (4.00-5.50); RED CELL DISTRIBUTION WIDTH 14.5 % (11.0-15.5); WHITE BLOOD COUNT (AUTO) 15.6 K/uL (4.8-10.8)
--- NOTE | 2025-08-28 07:43 | CONS ---
[facility] CONSULTATION NOTE Date Patient Seen: Aug 28, 2025 Time of Visit: 07:42 Supervising Physician: RAJENDRA TELLEZ MD Reason for Consultation: [facility] Primary Care Physician: CHANCE LAWS MD ATTENDING PHYSICIAN: DR JOSE WELSH Outpatient Specialists: [ ] Inpatient Consults: [facility], CARDIOLOGY - DR BHATTI PROBLEM LIST: Sepsis with MODS, POA Bilateral multifocal pneumonia, POA Suspected healthcare associated pneumoniae, POA Acute hypoxemic respiratory failure, POA requiring NIV Acute complicated cystitis POA Acute on chronic NSTEMI CAD KOSTA CKD Leukocytosis with left shift Normocytic normochromic anemia Hypertension Hyperlipidemia Hypomagnesemia Hyperglycemia in the presence of Type 2 diabetes mellitus Hypothyroidism From [place] [facility] HPI: This is an elderly 85-year-old female with a past medical history of coronary artery disease, hypertension, hyperlipidemia, type 2 diabetes mellitus, hypothyroidism, CKD, Perez's esophagus, and prior bladder surgery who presented to the ED for evaluation of shortness of breaths and chest pain. Per son who is at the bedside she was brought into the ED from [place] [facility] for chest pain and shortness of breaths. He reports that the pain was constant and did not appeared to be alleviated with rest. She was brought via EMS to the ED and initial vital signs were temperature 98.1 heart rate of 117 respiratory rate of 18 blood pressure 158/92 with a saturation of 95% on 10 L via non-rebreather mask. Pertinent laboratory shows: White count is 15.6 hemoglobin of 7.5 hematocrit of 22 platelet count of 224 K neutrophils of 88. Initial chemistries shows sodium of 135 chloride of 97 carbon dioxide of 18 BUN of 77 creatinine of 3.0 GFR of 15 glucose of 379 mg/dL ketones were 0.1-for ketones lactic acid of 5.8 decreasing to 4.0 initial troponin was 2392 BNP of 2520. She was negative for influenza A/B and COVID-19. She was also negative for strep throat. MRSA of the nares positive. UA positive for protein of 200 glucose of 200 small occult blood, leukocyte esterase of 25 RBCs 2-5 WBCs of 60 10 and hyaline casts of 2-5. On blood gas patient has a pH of 7.39 pCO2 of 29 PO2 of 84.4 and bicarb of 17.2 with a O2 saturation 96.4. She was started on BiPAP in the ED for moderate respiratory distress. On assessment patient is awake alert and oriented x3. She denied current chest pain with me. She reported some shortness of breaths with the exertion. Reports she felt better with the O2, she was given a dose of Zosyn and vancomycin in the ED was started on heparin drip but discontinued by paralegal legal secretary. Aspirin and Plavix was started per cardiology is as well. We will wean pt off bipap and use NC for now on 3L. Goal of this conversation was to discuss goals of care. I discussed regarding what advanced directives in detail and what advanced care planning entails. We also discussed CODE STATUS. I informed the patient that in the case of cardiopulmonary demise, resuscitation efforts including chest compressions and intubations do not lead to ideal postresuscitative outcomes. We discussed patient's particular disease processes and how this could be potentially impacting the patient's outcome in the event of a cardiopulmonary arrest. All questions related to resuscitation, CODE STATUS, advanced directives were answered in detail. Patient wishes to not receive resuscitated measures such as CPR or intubation. We will change CODE STATUS to DO NOT INTUBATE and DO NOT RESUSCITATE. PAST MEDICAL HX: see above PAST SURGICAL HX: noncontributory SOCIAL HISTORY: No tobacco, ETOH, or illicit drug use Coded Allergies: No Known Allergies (Verified Allergy, Unknown, 12/27/20) ceftriaxone (Unverified Allergy, Unknown, 08/28/25) dupilumab (Unverified Allergy, Unknown, 08/28/25) hydrochlorothiazide (Unverified Allergy, Unknown, 08/28/25) mirabegron (Unverified Allergy, Unknown, 08/28/25) oxybutynin (Unverified Allergy, Unknown, 08/28/25) pioglitazone (Unverified Allergy, Unknown, 08/28/25) REVIEW OF SYSTEMS: Const: no fever, fatigue, or weight changes Eyes: no recent vision problems ENT: No congestion, ear pain, or sore throat C/V: + chest pain, palpitations, shortness for breath Resp:+ shortness of the breath GI: No abdominal pain, nausea, vomiting, constipation, or diarrhea : No incontinence of or dyuria M/S: No joint or pain swelling Skin: No rash Neuro: no headache, focal numbness, or weakness, dizziness or seizures Psych: no depression or anxiety Heme: no abnormal bruising or bleeding Lymph: no swollen glands PHYSICAL EXAM: GENERAL: alert, weak, awake oriented x 3 HEENT: EOMI, Sclera non icteric, moist mucosa NECK: Supple, no JVD, trachea midline LUNGS: Diminished breath sounds bilaterally. No wheezes HEART: Regular rate and rhythm. Normal S1 and S2, without murmurs ABD: Abdomen soft, nontender. Bowel sounds present EXT: No clubbing cyanosis or edema NEURO: Alert and oriented to person, follows commands Vital Signs (last 8hr) Date Time Temp Pulse Resp B/P (MAP) Pulse Ox O2 Delivery O2 Flow Rate FiO2 08/28/25 07:38 98.4 103 21 160/94 100 Bi-PAP+ 10.0 50 08/28/25 06:46 102 20 50 08/28/25 06:42 97 18 154/92 100 Bi-PAP+ 50 08/28/25 06:08 114 22 153/92 100 Bi-PAP+ 50 08/28/25 05:21 99 18 150/92 100 Bi-PAP+ 50 08/28/25 04:38 18 18 155/95 100 Bi-PAP+ 50 08/28/25 03:55 98 16 155/95 100 Bi-PAP+ 50 08/28/25 03:00 113 21 50 08/28/25 02:58 106 18 157/86 100 Bi-PAP+ 15 50 08/28/25 02:33 108 18 164/92 100 Bi-PAP+ 50 08/28/25 01:18 119 18 151/83 99 Bi-PAP+ 50 08/28/25 00:50 111 28 50 08/28/25 00:19 113 18 08/28/25 00:12 98.2 113 21 158/83 98 Non-Rebreather+ 15 100 LABS: Hematology Labs: Test 08/28/25 07:18 08/28/25 00:05 Range/Units White Blood Count 15.6 H 4.8-10.8 K/uL Red Blood Count 2.36 L 4.00-5.50 MIL/uL Hemoglobin 7.5 L 12.0-16.0 g/dL Hematocrit 22.0 L 36-48 % Mean Corpuscular Volume 93.2 79-99 fL Mean Corpuscular Hemoglobin 31.8 27.0-33.0 pg Mean Corpuscular Hemoglobin Concent 34.1 32.0-36.0 g/dL Red Cell Distribution Width 14.5 11.0-15.5 % Platelet Count 224 130-400 K/uL Mean Platelet Volume 10.1 7.5-10.5 fL Immature Granulocyte % (Auto) 1.4 H 0-1 % Neutrophils (%) (Auto) 88.0 H 40.0-77.0 % Lymphocytes (%) (Auto) 7.5 L 21.0-51.0 % Monocytes (%) (Auto) 3.0 3.0-13.0 % Eosinophils (%) (Auto) 0.0 0.0-8.0 % Basophils (%) (Auto) 0.1 0.0-5.0 % Neutrophils # (Auto) 13.7 H 1.8-7.7 K/uL Lymphocytes # (Auto) 1.2 1.0-4.8 K/uL Monocytes # (Auto) 0.5 0.1-1.0 K/uL Eosinophils # (Auto) 0.00 0.00-0.70 K/uL Basophils # (Auto) 0.02 0.00-0.20 K/uL Absolute Immature Granulocyte (auto 0.22 0-1 K/uL Nucleated Red Blood Cells 0.0 0.0-0.19 % White Cell Morphology Comment See comments Chemistry Labs: Test 08/28/25 07:18 08/28/25 01:37 08/28/25 00:05 Range/Units Lactic Acid Level 1.5 0.8-2.5 mmol/L Whole Blood Ketones Quantitative 0.1 0.0-0.6 mmol/L B-Type Natriuretic Peptide 2520 H 0-100 pg/mL Sodium Level 135 L 136-145 mmol/L Potassium Level 4.2 3.5-5.1 mmol/L Chloride Level 97 L 101-111 mmol/L Carbon Dioxide Level 18 L 21-32 mmol/L Blood Urea Nitrogen 77 *H 7-18 mg/dL Creatinine 3.0 H 0.5-1.0 mg/dL Glomerular Filtration Rate Calc 15 >90 mL/min Random Glucose 379 H 70-105 mg/dL Total Calcium 7.5 L 8.5-10.1 mg/dL Total Creatine Kinase 323 H 21-232 U/L Troponin I High Sensitivity 2392.4 *H 4-50 ng/L Coagulation Labs: Test 08/28/25 01:37 Range/Units Activated Partial Thromboplast Time 24.2 L 26.3-35.5 SEC DIAGNOSTICS / RADIOLOGY RESULTS: [[facility] [address] [place] [address] IMAGING REPORT Signed PATIENT: HUSSAIN STRONG MR#: [id number] : 1940 SEX: F AGE: 85 LOCATION: [facility] ORDER 55 STATUS: REG ER REPORT#: [id number] SERVICE 55 REASON: SOB ORDERING PHYSICIAN: SUSIE SALINAS MD PROCEDURE: CXR1VW - CHEST 1VW EXAM: CR Chest, 1 view CLINICAL HISTORY: Shortness of breath. COMPARISON: Chest radiograph dated 03/13/2024. FINDINGS: Multifocal airspace disease in the bilateral lung marley, more pronounced on the right side, concerning multifocal pneumonia. Small pleural effusions bilaterally, more pronounced on the right side. No pneumothorax. Stable cardiac size. Stable mild COPD. No acute osseous abnormality. IMPRESSION: Multifocal airspace disease in the bilateral lung marley, more pronounced on the right side, concerning multifocal pneumonia. Small pleural effusions bilaterally, more pronounced on the right side. Overall, there is an interval worsening compared to the previous examination. /[facility] DICTATED BY: TYLER FLORES Jr., MD DATE: 08/28/25251 ELECTRONICALLY SIGNED BY: TYLER FLORES Jr., MD DATE: 08/28/25251 ] PLAN Plan: CBC, CMP, procalcitonin, blood cultures, lactic acid check for COVID-19, check for influenza a and B-all neg MRSA + nares start zyvox CT chest respiratory sputum culture ABG if respiratory failure suspected emperic antibiotics for HAP Tailor antibiotics to cultures consider steroids if no improvement reconsider empiric treatment if no improvement in 72 hours Procalcitonin Monitor respiratory status closely Maintain O2 sats above 92% Continuous telemetry monitoring Strict I&O 2D echo Fluid restriction 1.5-2 L Beta jessica hold MARGARITA-inhibitor Aspirin and plavic per cardiology recomendations Statin Sodium restriction Daily weight Avoid blood transfusions unless absolutely necessary with a hemoglobin less than seven CPAP at night and prn Arrange outpatient pulmonology referral for sleep study, PFT and follow-up management upon discharge GI and DVT prophylaxis with Protonix and SCD due to anemia s NEURO: Minimize central acting medications as possible. Fall Precautions. Well lighted room through the day and minimize interruptions through the night to prevent acute delirium. PULMONARY: Supplemental 02 as needed Titrate Fio2 to keep Spo2 > or = 90% DuoNebs and CPT as needed IS hourly while awake for pulmonary hygiene Out of bed to chair as tolerated CARDIOVASCULAR: Follow hemodynamics. Titrate vasopressor to keep MAP >65 or systolic blood pressure >95mmHg Drips: Heparin drip discontinued per Cardiology Nitroglycerin drip per protocol LINES: PIV GI & NUTRITION: Continue nutritional support Aspirations precautions Prokinetic agents and laxatives as needed KIDNEYS & ELECTROLYTES: Strict monitoring of intake and output Daily weights Avoid nephrotoxic agents Monitor electrolytes and replace as needed Goal urine output of 30mL/hr or 0.5mL/kg/hr Yeager catheter ENDOCRINE: Maintain blood glucose between 100-180 at all times. Insulin sliding scale for blood glucose management INFECTIOUS DISEASE: Trend temperature. Soto-culture if febrile. Micro: [ ] Respiratory culture Blood cultures urine culture Antibiotics: [ ] Cefepime flagyl Zyvox HEMATOLOGY & COAGULATION: Monitor H&H. Keep Hgb > 7 Transfuse 1 unit of PRBC for Hgb < 7 Transfuse 1 pack of platelets of platelets < 20, 000 Watch for any signs and symptoms of bleeding SKIN: Pressure ulcer prevention per facility protocol Rehab: PT/OT Prophylaxis: GI: Protonix DVT: scd Code Status: Full Resuscitation Disposition: [ icu] Other: Total patient care time exceeds 35 minutes excluding all procedures. Case was discussed and seen with my supervising physician. The above plan was formulated and agreed upon. ATTESTATION BY PHYSICIAN The patient has been seen and evaluated, the case has been discussed with the MANAGER ETHICS, I agree with the clinical findings and plan of care. Rajendra Tellez MD, [facility] Aug 28, 2025 07:42
[2025-08-28 07:48] LABS: CREATININE 2.9 mg/dL (0.5-1.0); GLOMERULAR FILTR. RATE CALC 15.0 mL/min (>90); GLUCOSE,RANDOM 310.0 mg/dL (70-105); SODIUM SERUM 136.0 mmol/L (136-145)
[2025-08-28] MEDS: DOXYCYCLINE HYCLATE 100 MG TABLET PO SCH (07:49)
[2025-08-28 08:06] LABS: UREA NITROGEN, BLOOD 77.0 mg/dL (7-18)
--- NOTE | 2025-08-28 08:13 | NUR ---
SWITCHED FROM BIPAP TO NASAL CANNULA AT 5 LPM, PER ELADIO MICROFILM TECHNICIAN, PT TOLERATED FOR ABOUT 5 MINUTES AND THEN GOT SOB AGAIN AND ASKED TO BE PACED BACK ON BIPAP, PT NOW ON BIPAP AND TOLERATING WELL WITH O2 SATS AT 100%.
[2025-08-28] MEDS ORDERED: MAGNESIUM 2GM PREMIX 50ML 50 ML IV PRN (08:30)
[2025-08-28 08:31] LABS: INR 1.16 (0.85-1.15)
--- NOTE | 2025-08-28 08:32 | NUR ---
HEPARIN DRIP ON HOLD FOR 1 HR
[2025-08-28] MEDS: MAGNESIUM 2GM PREMIX 50ML 50 ML IV SCH (08:39)
--- NOTE | 2025-08-28 09:32 | NUR ---
DNR, DBI SIGNED BY PATIENT AND DAUGHTER, WITNESSED BU PRIMARY NURSE
--- NOTE | 2025-08-28 10:04 | CONS ---
[facility] CARDIOLOGY CONSULTATION REPORT Date Patient Seen: Aug 28, 2025 Time of Visit: 09:47 Requesting Physician: George Krishnamurthy MD Reason for Consultation: NSETMI History of Present Illness: This is an 85-year-old Latin-Ivorian female with a past medical history of coronary artery disease with chronic total occlusion of the LAD documented in January 2016, stable angina, hypertension, hyperlipidemia, type 2 diabetes mellitus, hypothyroidism and right carotid bruit with normal prior Doppler examined 2017 who [facility] year and a half was brought to the emergency department due to worsening dyspnea and hypoxemia at an [facility]dc facility. History is obtained from the patient and her son. The patient has been undergoing some physical therapy at the fdc facility and reports that days ago, she was undergoing physical therapy and noted some chest discomfort which physical therapy was held. She was not very specific about her chest discomfort on that day. Yesterday 08/27/2025, she awoke with substernal chest discomfort described as chest pain. She also developed some dyspnea and her symptoms lasted about an hour. Throughout the day, she also was noted to have some wheezing and was treated with nebulizer therapy and oxygen therapy and was also initiated on Solu-Medrol therapy. She was well until the evening hours when she developed worsening dyspnea, tachycardia with a heart rate of 125 beats per minute and her O2 sat was documented at 83% on 5 L of nasal cannula prompting ER assessment. In the emergency department, she was noted to have a WBC of 17.5, hemoglobin of 7.5 and hematocrit of 22.0 and a platelet count of 224. Her lactic acid was elevated at 5.8. A chest x-ray demonstrated normal cardiac silhouette, bilateral basilar infiltrates with infiltrates in the right lower and middle lobes consistent with bilateral pneumonia. In addition, high sensitivity cardiac [place] [address] [place] [address], prompting cardiology consultation. Her EKG on admission demonstrated a sinus tachycardia, QS complexes anteriorly and about half a mm of downsloping ST depressions in the lateral leads. The patient denied any chest pain yesterday evening and denies any chest pain this m orning. She is currently on BiPAP support and has been initiated on IV heparin drip. She has requested a DNR and do not intubate status and her son is in agreement with this. Past Medical History: As outlined above and summarized below Past Surgical History: Cholecystectomy Back surgery Family History: Noncontributory Social History: The patient currently lives at the fdc facility, she reports he has been poorly ambulatory over the last year and a half and primarily in a wheelchair Habits: Non smoker. Denies alcohol consumption. Denies illicit drug use Fdc Meds: Extensive but include sodium bicarb, [id number] mg p.o. daily, amlodipine 10 mg daily, clonidine 0.1 mg daily as needed, lisinopril5 mg p.o. daily, isosorbide dinitrate 30 mg2 tabs p.o. daily, pantoprazole 40 mg daily Review of Systems: CONST: No fever, fatigue, or weight changes. EYES: No recent vision problems. ENT: No congestion, ear pain, or sore throat. C/V: No chest pain, palpitations, or edema. RESP: No cough, positive for dyspnea, wheezing GI: No abdominal pain, nausea, vomiting, constipation, or diarrhea. : No incontinence or dysuria. SKIN: No rash. NEURO: No headache, focal numbness or weakness, dizziness, or seizures. PSYCH: No depression or anxiety. HEME: No abnormal bruising or bleeding. LYMPH: No swollen glands. Physical Examination: GENERAL: Currently on BiPAP in the ER. HEAD: Normal with no signs of head trauma. EYES: PERRLA, EOMI, conjunctiva and sclera normal. ENT: Hearing grossly intact, normal oropharynx. NECK: Supple without JVD. There is no tenderness, lymphadenopathy, or masses. No thyromegaly. Normal carotid upstrokes unable to assess for bruit given upper airway noise from BiPAP LUNGS: There are transmitted breath sounds at the bases and rales in the mid lobes. HEART: Normal underlying rhythm with tachycardia noted. Normal S1 and S2 without murmurs, gallop or rub. VASC: Peripheral pulses +2 bilaterally. ABD: Bowel sounds normal, soft, nontender, no masses, no organomegaly. No audible bruits. : Not examined LYMPH: No lymphadenopathy noted. EXT: No clubbing, cyanosis or edema. SKIN: No rashes or lesions noted. NEURO: Awake, alert, and oriented x3. No focal sensory or strength deficits noted. Vital Signs (last 8hr) Date Time Temp Pulse Resp B/P (MAP) Pulse Ox O2 Delivery O2 Flow Rate FiO2 08/28/25 09:37 107 21 162/97 99 Bi-PAP+ 10.0 50 08/28/25 08:16 107 21 162/92 95 Bi-PAP+ 10.0 50 08/28/25 07:38 98.4 103 21 160/94 100 Bi-PAP+ 10.0 50 08/28/25 06:46 102 20 50 08/28/25 06:42 97 18 154/92 100 Bi-PAP+ 50 08/28/25 06:08 114 22 153/92 100 Bi-PAP+ 50 08/28/25 05:21 99 18 150/92 100 Bi-PAP+ 50 08/28/25 04:38 18 18 155/95 100 Bi-PAP+ 50 08/28/25 03:55 98 16 155/95 100 Bi-PAP+ 50 08/28/25 03:00 113 21 50 08/28/25 02:58 106 18 157/86 100 Bi-PAP+ 15 50 08/28/25 02:33 108 18 164/92 100 Bi-PAP+ 50 Laboratory: Hematology Labs: Test 08/28/25 07:18 08/28/25 00:05 Range/Units White Blood Count 15.6 H 4.8-10.8 K/uL Red Blood Count 2.36 L 4.00-5.50 MIL/uL Hemoglobin 7.5 L 12.0-16.0 g/dL Hematocrit 22.0 L 36-48 % Mean Corpuscular Volume 93.2 79-99 fL Mean Corpuscular Hemoglobin 31.8 27.0-33.0 pg Mean Corpuscular Hemoglobin Concent 34.1 32.0-36.0 g/dL Red Cell Distribution Width 14.5 11.0-15.5 % Platelet Count 224 130-400 K/uL Mean Platelet Volume 10.1 7.5-10.5 fL Immature Granulocyte % (Auto) 1.4 H 0-1 % Neutrophils (%) (Auto) 88.0 H 40.0-77.0 % Lymphocytes (%) (Auto) 7.5 L 21.0-51.0 % Monocytes (%) (Auto) 3.0 3.0-13.0 % Eosinophils (%) (Auto) 0.0 0.0-8.0 % Basophils (%) (Auto) 0.1 0.0-5.0 % Neutrophils # (Auto) 13.7 H 1.8-7.7 K/uL Lymphocytes # (Auto) 1.2 1.0-4.8 K/uL Monocytes # (Auto) 0.5 0.1-1.0 K/uL Eosinophils # (Auto) 0.00 0.00-0.70 K/uL Basophils # (Auto) 0.02 0.00-0.20 K/uL Absolute Immature Granulocyte (auto 0.22 0-1 K/uL Nucleated Red Blood Cells 0.0 0.0-0.19 % White Cell Morphology Comment See comments Chemistry Labs: Test 08/28/25 07:18 08/28/25 01:37 08/28/25 00:05 Range/Units Sodium Level 136 136-145 mmol/L Potassium Level 3.8 3.5-5.1 mmol/L Chloride Level 100 L 101-111 mmol/L Carbon Dioxide Level 23 21-32 mmol/L Blood Urea Nitrogen 77 *H 7-18 mg/dL Creatinine 2.9 H 0.5-1.0 mg/dL Glomerular Filtration Rate Calc 15 >90 mL/min Random Glucose 310 H 70-105 mg/dL Lactic Acid Level 1.5 0.8-2.5 mmol/L Total Calcium 7.9 L 8.5-10.1 mg/dL Magnesium Level 1.10 L 1.80-2.40 mg/dL Troponin I High Sensitivity 75172 *H 4-50 ng/L Whole Blood Ketones Quantitative 0.1 0.0-0.6 mmol/L B-Type Natriuretic Peptide 2520 H 0-100 pg/mL Total Creatine Kinase 323 H 21-232 U/L Coagulation Labs: Test 08/28/25 07:34 08/28/25 07:18 Range/Units Prothrombin Time 12.1 H 9.6-11.6 SEC Prothromb Time International Ratio 1.16 H 0.85-1.15 Activated Partial Thromboplast Time > 139.0 #*H 26.3-35.5 SEC Diagnostics / Radiology: Impression and Plan: Sepsis secondary to bilateral pneumonia: Bilateral pneumonia: Acute hypoxemic respiratory failure: -continue BiPAP support -antibiotic therapy has been initiated Type non ST segment elevation NH in the setting of bilateral pneumonia/respiratory failure and sepsis: Coronary artery disease with chronic total occlusion of the LAD documented in January 2016: Given anemia, we will discontinue IV heparin and begin dual antiplatelet therapy with aspirin 81 mg daily and clopidogrel 75 mg p.o. daily -hold beta-jessica therapy for now -obtain a 2D echocardiogram in a.m. -plan on continued conservative medical therapy -repeat CK, troponin and repeat EKG Acute on chronic renal failure with admission BUN of 77 and creatinine of 3.0: -consider Nephrology consultation -hold lisinopril given acute on chronic renal failure Normocytic normochromic anemia: -trend CBC with dual antiplatelet therapy Hypertension: -resume amlodipine 5 mg p.o. b.i.d. -hold lisinopril given acute on chronic renal failure DNR status per patient's request Comorbidities: Hyperlipidemia Type 2 diabetes mellitus Hypothyroidism on supplements History of right carotid bruit with normal Doppler examined 2016 NALINI NAJERA Aug 28, 2025 10:04
--- NOTE | 2025-08-28 10:16 | NUR ---
NASAL SWAB FOR MRSA COLLECTED AND SENT TO LAB
--- NOTE | 2025-08-28 11:07 | NUR ---
PER DR. RIVAS CERTIFIED PROCEDURAL CODER, STOP THE HEPARIN DRIP NOW. HEPARIN DRIP STOPPED NOW.
[2025-08-28] MEDS: SODIUM CHLORIDE 3% FOR INHALATION 4 ML/AMP VIAL.NEB IH ONE ×3 (11:28→23:24)
[2025-08-28] MEDS: ASPIRIN 81 MG EC TAB PO SCH (12:38)
--- NOTE | 2025-08-28 12:46 | NUR ---
PLACED ON NASAL CANNULA AT 4 LPM, TOLERATING WELL, O2 SATS 98%, NO SOB AT THIS TIME
--- NOTE | 2025-08-28 12:50 | NUR ---
CALLED TO GIVE REPORT, PRIMARY NURSE IN LUNCH BUT WILL CALL BACK FOR REPORT TO EXT TO EXT [id number]
--- NOTE | 2025-08-28 12:57 | EKG ---
[facility] Test Date: 2025-08-28 Test Time: 12:16:33 Pat Name: HUSSAIN STRONG Department: [facility] Room: 215 Gender: F Core Piler: [id number] : 1940 Requested By: NALINI NAJERA Order Number: [id number] Reading MD: Deonna Thompson Measurements Intervals [place] Rate: 91 P: 98 MI: 205 QRS: -32 QRSD: 110 T: 119 QT: 336 QTc: 415 Interpretive Statements Sinus rhythm Ventricular premature complex Incomplete left bundle branch block LVH with secondary repolarization abnormality Anterior Q waves, possibly due to LVH Compared to ECG 08/27/2025 23:59:55 Ventricular premature complex(es) now present Left ventricular hypertrophy now present Early repolarization now present Q waves now present Sinus tachycardia no longer present Electronically Signed On 08-30-2025 10:17:22 CDT by Deonna Thompson Please click the below link to view image of tracing.
--- NOTE | 2025-08-28 13:32 | NUR ---
PAGED ELADIO PORTER TO NOTIFY TOTAL CK WENT FROM 323 TO 1092 NOW. AWAITING CALL BACK, ALSO NOTIFIED ACCEPTING NEW NURSE [facility] FROM ICU. ELADIO PORTER ORDERED CARDIAC PANEL
[2025-08-28] MEDS: NITROGLYCERIN 0.4 MG SL TAB SL PRN (15:32)
--- NOTE | 2025-08-28 15:33 | NUR ---
Patient reports chest pain in mid-sternum. She grades the pain 3/10, pain does not radiate. Patient unable to describe pain. MEGAN Hicks immediately notified. Orders for nitroglycerine sublingual placed and executed. Vitals stable. Daughters at bedside and updated on pt's condition
--- NOTE | 2025-08-28 15:36 | NUR ---
Fawn Aguirre NP notified of positive results for MRSA in nares
--- NOTE | 2025-08-28 15:46 | NUR ---
DCP: RETURN TO [facility] met with pt and daughter Carlee at bedside. Pt states she has lived at [facility] since January 2024. Pt is w/c bound, and requires assistance with her ADLS, house keeping and transportation. Pt to return to [facility] at [place], will need transportation. Consent signed and on chart. Cm to follow and assist as needed Addendum: 08/28/25 at 1604 by MANI GUERRERO SS Amended: Links added.
[2025-08-28 15:53] LABS: CREATINE KINASE, TOTAL 945 U/L (21-232)
--- NOTE | 2025-08-28 16:02 | NUR ---
patient now complaining of chest pain 3/10 that radiates to the back. Fabiola Arechiga NP notified. Orders for nitroglycerine drip and EKG placed and executed. VS stable
--- NOTE | 2025-08-28 16:11 | EKG ---
[facility] Test Date: 2025-08-28 Test Time: 16:11:48 Pat Name: HUSSAIN STRONG Department: [facility] Room: 215 1 Gender: F Svp Group Director: MENDOZA : 1940 Requested By: NALINI NAJERA Order Number: [id number] Reading MD: Deonna Thompson Measurements Intervals [place] Rate: 99 P: 61 MA: 176 QRS: -32 QRSD: 108 T: 127 QT: 318 QTc: 408 Interpretive Statements Sinus rhythm with occasional premature ventricular complexes Left axis deviation Minimal voltage criteria for LVH, may be normal variant Nonspecific T wave abnormality Compared to ECG 08/28/2025 12:16:33 Left-axis deviation now present T-wave abnormality now present Left bundle-branch block no longer present Early repolarization no longer present Q waves no longer present Electronically Signed On 08-30-2025 10:18:46 CDT by Deonna Thompson Please click the below link to view image of tracing.
[2025-08-28] MEDS: NITROGLYCERIN 50MG/D5W 250ML 250 BOT IV SCH (16:34)
[2025-08-28] MEDS: NITROGLYCERIN 50MG/D5W 250ML 1 BOT ONE (16:34)
--- NOTE | 2025-08-28 17:02 | HP ---
INFECTIOUS DISEASE HISTORY & PHYSICAL NOTE Date of Service: Aug 28, 2025 HISTORY OF PRESENT ILLNESS: This is an 85-year-old female patient who is wheelchair-bound and a resident of [facility] for almost 2 years with medical history of heart failure, diabetes mellitus, anemia, hypertension, hypercholesterolemia and Perez's esophagus. Patient was sent over to the hospital for evaluation of shortness of breaths, wheezing and chest pain. Patient reported that she started with some chest discomfort, shortness of breath and wheezing yesterday morning around 6 am and was given a nebulizer treatment which seemed to help for some time. Stated that later on around 3:00 p.m. she was sat on the wheelchair and was taken to the dining area to wait for dinner. After dinner she reported that the chest pain, the wheezing and the shortness of breaths got worse and this time not relief with the nebulizer treatment and per report the oxygen saturation went down to the 80s requiring patient to be placed on a non- rebreather mask during EMS transfer. In the ER patient was placed on BiPAP support. On arrival to the hospital patient had a WBC of 17.5 and a lactic acid of 5.8. Troponin was elevated at 2392.4 and a BNP of 2520. Patient was found on acute renal failure with BUN of 77 and a creatinine of 3.0. A chest x-ray showed multifocal airspace disease concerning for multifocal pneumonia. Patient's hemoglobin is low at 7.5. No fever and during visit today patient's oxygen had been weaned down to nasal cannula at 3 L/min. Patient has been started on doxycycline, Zosyn and metronidazole. We will follow up on the culture results. REVIEW OF SYSTEMS CONSTITUTIONAL: Denies fever, chills, or fatigue. HEAD/FACE: No signs of trauma. EENT: Denies eye pain, blurred vision, double vision, or light sensitivity. RESPIRATORY: Shortness of breath and wheezing. CARDIOVASCULAR: Denies chest pain, palpitation, syncope. Chest pain. GASTROINTESTINAL/ABDOMINAL: Denies abdominal pain, constipation, diarrhea, nausea or vomiting GENITOURINARY: Denies dysuria or hematuria. MUSCULOSKELETAL: Denies joint pain, tenderness, or trauma. INTEGUMENTARY: Denies rash or itchiness NEUROLOGICAL/PSYCH: Denies anxiety, depression, heat or cold intolerance. PAST MEDICAL HISTORY: Diabetes mellitus. Heart failure. Anemia Hypertension. Hyperlipidemia. Perez's esophagus. Chronic kidney disease. PAST SURGICAL HISTORY: Cholecystectomy. Back surgery. PAST SOCIAL HISTORY: Patient denies the use of tobacco, alcohol or any other illicit drug. FAMILY HISTORY: Father, brother and a sister had coronary artery disease. Coded Allergies: No Known Allergies (Verified Allergy, Unknown, 12/27/20) ceftriaxone (Unverified Allergy, Unknown, 08/28/25) dupilumab (Unverified Allergy, Unknown, 08/28/25) hydrochlorothiazide (Unverified Allergy, Unknown, 08/28/25) mirabegron (Unverified Allergy, Unknown, 08/28/25) oxybutynin (Unverified Allergy, Unknown, 08/28/25) pioglitazone (Unverified Allergy, Unknown, 08/28/25) PHYSICAL EXAM EYES: Anicteric. Pupils equal and reactive. HENT: No oral thrush seen, moist Oral mucosa. NECK: Supple, no JVD or thyromegaly. LUNGS: Diminished breath sounds. Oxygen support. CARDIOVASCULAR: S1, S2 regular. No murmur heard. ABDOMEN: Soft, non tender, bowel sounds present, no organomegaly. CENTRAL NERVOUS SYSTEM: Awake, alert, oriented x 3. SKIN: No rashes, no swelling. LYMPHATICS: No peripheral lymphadenopathy' MUSCULOSKELETAL: No joint swelling, erythema or tenderness. EXTREMITIES: No cyanosis or clubbing. Weakness to bilateral lower extremities. 1+ edema to lower extremities. BACK: No deformity, no pressure ulcer. GENITOURINARY: No dysuria or hematuria. Yeager catheter. Vital Sign (Last 12 Hours) 08/28/25 08/28/25 08/28/25 08/28/25 05:21 06:08 06:42 06:46 Pulse 99 114 97 102 Resp 18 22 18 20 B/P (MAP) 150/92 153/92 154/92 Pulse Ox 100 100 100 O2 Delivery Bi-PAP+ Bi-PAP+ Bi-PAP+ FiO2 50 50 50 50 08/28/25 08/28/25 08/28/25 08/28/25 07:38 08:16 09:37 10:23 Temp 98.4 Pulse 103 107 107 92 Resp 21 21 21 17 B/P (MAP) 160/94 162/92 162/97 160/94 Pulse Ox 100 95 99 100 O2 Delivery Bi-PAP+ Bi-PAP+ Bi-PAP+ Bi-PAP+ O2 Flow Rate 10.0 10.0 10.0 10.0 FiO2 50 50 50 50 08/28/25 08/28/25 08/28/25 08/28/25 11:14 11:29 12:43 14:00 Temp 98.4 98.2 97.5 Pulse 91 93 103 99 Resp 16 17 18 18 B/P (MAP) 141/88 153/90 145/87 Pulse Ox 100 98 97 O2 Delivery Bi-PAP+ Room Air* Nasal Cannula Nasal Cannula* O2 Flow Rate 10.0 4 3.0 FiO2 50 N/A 08/28/25 08/28/25 08/28/25 15:00 15:01 16:34 Pulse 100 Resp 17 B/P (MAP) 152/83 143/87 Pulse Ox 99 98 O2 Delivery Nasal Cannula Nasal Cannula* O2 Flow Rate 3.0 3 FiO2 32 LABS: Laboratory: Test 08/28/25 15:51 08/28/25 15:24 08/28/25 12:37 08/28/25 11:37 Range/Units Whole Blood Glucose 95 70-110 MG/DL Total Creatine Kinase 945 *H 21-232 U/L Troponin I High Sensitivity 06180 *H 4-50 ng/L Bedside Glucose Comment Notified Nurse Magnesium Level 2.10 1.80-2.40 mg/dL Test 08/28/25 07:34 08/28/25 07:18 08/28/25 04:37 08/28/25 01:37 Range/Units Prothrombin Time 12.1 H 9.6-11.6 SEC Prothromb Time International Ratio 1.16 H 0.85-1.15 White Blood Count 15.6 H 4.8-10.8 K/uL Red Blood Count 2.36 L 4.00-5.50 MIL/uL Hemoglobin 7.5 L 12.0-16.0 g/dL Hematocrit 22.0 L 36-48 % Mean Corpuscular Volume 93.2 79-99 fL Mean Corpuscular Hemoglobin 31.8 27.0-33.0 pg Mean Corpuscular Hemoglobin Concent 34.1 32.0-36.0 g/dL Red Cell Distribution Width 14.5 11.0-15.5 % Platelet Count 224 130-400 K/uL Mean Platelet Volume 10.1 7.5-10.5 fL Immature Granulocyte % (Auto) 1.4 H 0-1 % Neutrophils (%) (Auto) 88.0 H 40.0-77.0 % Lymphocytes (%) (Auto) 7.5 L 21.0-51.0 % Monocytes (%) (Auto) 3.0 3.0-13.0 % Eosinophils (%) (Auto) 0.0 0.0-8.0 % Basophils (%) (Auto) 0.1 0.0-5.0 % Neutrophils # (Auto) 13.7 H 1.8-7.7 K/uL Lymphocytes # (Auto) 1.2 1.0-4.8 K/uL Monocytes # (Auto) 0.5 0.1-1.0 K/uL Eosinophils # (Auto) 0.00 0.00-0.70 K/uL Basophils # (Auto) 0.02 0.00-0.20 K/uL Absolute Immature Granulocyte (auto 0.22 0-1 K/uL Nucleated Red Blood Cells 0.0 0.0-0.19 % Activated Partial Thromboplast Time > 139.0 #*H 26.3-35.5 SEC Sodium Level 136 136-145 mmol/L Potassium Level 3.8 3.5-5.1 mmol/L Chloride Level 100 L 101-111 mmol/L Carbon Dioxide Level 23 21-32 mmol/L Blood Urea Nitrogen 77 *H 7-18 mg/dL Creatinine 2.9 H 0.5-1.0 mg/dL Glomerular Filtration Rate Calc 15 >90 mL/min Random Glucose 310 H 70-105 mg/dL Lactic Acid Level 1.5 0.8-2.5 mmol/L Total Calcium 7.9 L 8.5-10.1 mg/dL Urine Color LIGHT-YELLOW YELLOW Urine Appearance CLEAR CLEAR Urine pH 5.5 5.0-8.0 Urine Specific [place] 1.013 1.001-1.031 Urine Protein 200 H NEGATIVE mg/dL Urine Glucose (UA) 200 H NEGATIVE mg/dL Urine Ketones NEGATIVE NEGATIVE mg/dL Urine Occult Blood SMALL H NEGATIVE Urine Nitrate NEGATIVE NEGATIVE Urine Bilirubin NEGATIVE NEGATIVE mg/dL Urine Urobilinogen 0.2 0.2-1.0 mg/dL Urine Leukocyte Esterase 25 H NEGATIVE [place]/uL Urine RBC 2-5 H 0-1 /HPF Urine WBC 6-10 H 0-1 /HPF Urine Squamous Epithelial Cells RARE 0-2 /HPF Urine Bacteria MANY None Seen /HPF Urine Hyaline Casts 2-5 H 0-1 /LPF /LPF Whole Blood Ketones Quantitative 0.1 0.0-0.6 mmol/L B-Type Natriuretic Peptide 2520 H 0-100 pg/mL Test 08/28/25 00:44 08/28/25 00:41 08/28/25 00:05 Range/Units Influenza Type A Antigen Negative For Type A NEGATIVE Influenza Type B Antigen Negative For Type B NEGATIVE SARS-CoV-2 Antigen (Rapid) PRESUMPTIVE NEGATIVE NEGATIVE Group A Streptococcus Rapid negative NEGATIVE Blood Gas Specimen Type Arterial Arterial Blood pH 7.392 7.350-7.450 Arterial Blood Partial Pressure CO2 29 L 32-45 mmHg Arterial Blood Partial Pressure O2 84.4 83.0-108.0 mmHg Arterial Blood HCO3 17.2 L 21.0-28.0 mmol/L Arterial Blood Oxygen Saturation 96.4 94.0-98.0 % Arterial Blood Base Excess -6.2 L -2.0-3.0 mmol/L Blood Gas Temperature 37.0 35.5-37.0 CELSIUS Blood Gas Flow-by 15.00 0.00-15.00 L/min Blood Gas Vent Mode RR NRB ROOM AIR FiO2 100.0 % Blood Gas Specimen Comment CONCHITA LEO White Cell Morphology Comment See comments Current Medications Medications (Trade) Dose Ordered Sig/David Route PRN Reason Start Time Stop Time Status Last Admin Dose Admin Amlodipine Besylate (NorvASC 5MG TAB) 5 mg BID PO 08/28/25 21:00 09/27/25 20:59 Aspirin (Aspirin 81mg Ec Tab) 81 mg DAILY PO 08/28/25 10:30 09/27/25 10:29 08/28/25 12:38 81 MG Atorvastatin Calcium (LIPItor 40MG) 40 mg HS PO 08/28/25 21:00 09/27/25 20:59 Cefepime HCl (MAXipime 1 GM vial) 1 gm Q24H IVPB 08/28/25 14:00 08/28/25 16:49 DC 08/28/25 14:28 1 GM Cefepime HCl (MAXipime 2 gm vial) 2 gm Q24H IVPB 08/29/25 14:00 09/08/25 13:59 Clopidogrel Bisulfate (plaVIX 75MG) 75 mg DAILY PO 08/28/25 10:30 09/27/25 10:29 08/28/25 12:38 75 MG Doxycycline Hyclate (Doxycycline Hyclate) 100 mg BID PO 08/28/25 09:00 09/07/25 08:59 08/28/25 07:49 100 MG Heparin Sodium (Porcine) (HEParin 5,000 UNIT VIAL) *calculation based on ACTUAL B... AD PRN IV HEPARIN PROTOCOL 08/28/25 02:00 08/28/25 11:09 DC 08/28/25 01:56 5,000 UNIT Heparin Sodium/ Dextrose 250 ml @ 0 mls/hr Q6H IV 08/28/25 02:00 08/28/25 11:09 DC 08/28/25 02:03 12.18 MLS/HR Insulin Human Lispro (HumaLOG LISpro 100 UNIT/ML 3ML) INSULIN SLIDING SCAL... ACHS SQ 08/28/25 07:30 09/27/25 07:29 08/28/25 08:36 14 UNIT Ipratropium [place] (AtrovENT UD) 0.5 MG [id number] IH 08/28/25 12:00 09/27/25 11:59 08/28/25 11:18 0.5 MG Linezolid 300 ml @ 150 mls/hr Q12H IV 08/28/25 18:00 09/07/25 17:59 Magnesium Sulfate 50 ml @ 0 mls/hr PROTOCOL IV 08/28/25 08:30 09/27/25 08:29 08/28/25 10:00 25 MLS/HR Magnesium Sulfate 50 ml @ 0 mls/hr PROTOCOL PRN IV MAGNESIUM PROTOCOL 08/28/25 08:30 08/28/25 08:27 DC Metoprolol Tartrate (loprESSOR) 12.5 mg BID PO 08/28/25 21:00 09/27/25 20:59 Metronidazole/ Sodium Chloride 100 ml @ 100 mls/hr Q8H IVPB 08/28/25 08:00 09/07/25 07:59 08/28/25 15:28 100 MLS/HR Nitroglycerin (Nitrostat) 0.4 mg AD PRN SL CHEST PAIN 08/28/25 15:30 09/27/25 15:29 08/28/25 15:32 0.4 MG Nitroglycerin/ Dextrose 250 ml @ 0 mls/hr PROTOCOL IV 08/28/25 16:00 09/27/25 15:59 08/28/25 16:34 5 MLS/HR Pharmacy Profile Note (Pharmacy Communication) 1 each ONCE MISC 08/28/25 02:30 08/28/25 02:26 DC Pharmacy Profile Note (Pharmacy Communication) 1 each ONCE MISC 08/28/25 16:00 08/28/25 16:09 DC DIAGNOSTICS / RADIOLOGY: PATIENT: HUSSAIN STRONG MR#: [id number] : 1940 SEX: F AGE: 85 LOCATION: [facility] ORDER 55 STATUS: REG ER REPORT#: [id number] SERVICE 55 REASON: SOB ORDERING PHYSICIAN: SUSIE SALINAS MD PROCEDURE: CXR1VW - CHEST 1VW EXAM: CR Chest, 1 view CLINICAL HISTORY: Shortness of breath. COMPARISON: Chest radiograph dated 03/13/2024. FINDINGS: Multifocal airspace disease in the bilateral lung marley, more pronounced on the right side, concerning multifocal pneumonia. Small pleural effusions bilaterally, more pronounced on the right side. No pneumothorax. Stable cardiac size. Stable mild COPD. No acute osseous abnormality. IMPRESSION: Multifocal airspace disease in the bilateral lung marley, more pronounced on the right side, concerning multifocal pneumonia. Small pleural effusions bilaterally, more pronounced on the right side. Overall, there is an interval worsening compared to the previous examination. /[place] DICTATED BY: TYLER FLORES Jr., MD DATE: 08/28/25 0252 ASSESSMENT: Acute hypoxic respiratory failure requiring oxygen support. Non-STEMI. Sepsis. Heart failure. Acute on chronic renal failure. Leukocytosis. Multifocal pneumonia. Rhabdomyolysis. Anemia. Diabetes mellitus. PLAN: Troponin levels were trended. Patient has been started on Zosyn, doxycycline and metronidazole. Cardiology has been consulted. Critical Care has been consulted. We will follow up on the culture results. Continue oxygen support. Continue diuretics. Follow hyperglycemia protocol. This case was reviewed and discussed with my supervising physician Dr. Garcia and the above assessment and plan was formulated and agreed upon. ATTESTATION BY PHYSICIAN I have seen and examined the patient. I reviewed the documentation, medical dec ision making, and treatment plan as noted by the mid-level provider above. I agree with the findings and plan of care. BLAISE GARCIA MD, MIRTA L [facility] Aug 28, 2025 17:02
[2025-08-28] MEDS: LINEZOLID 600 MG/ISO-OSM 300 ML IV SCH (17:06)
--- NOTE | 2025-08-28 18:57 | NUR ---
CT ON HOLD AT THIS TIME. PT UNABLE TO MAKE TRIP TO CT PT IN PAIN, CONCHITA PEREZ WILL CALL BACK IF ANY CHANGES.
[2025-08-28] MEDS ORDERED: LINA145C PO (19:57)
[2025-08-28] MEDS ORDERED: IPRA0.2S54 IH (19:57)
[2025-08-28] MEDS ORDERED: CLON0.1T PO (19:57)
[2025-08-28] MEDS ORDERED: AMLO-258 PO (19:57)
[2025-08-28] MEDS ORDERED: IRON1CAP32 PO (19:57)
[2025-08-28] MEDS ORDERED: LISI5TAB21 PO (19:57)
[2025-08-28] MEDS ORDERED: PRED20TA3 PO (19:57)
[2025-08-28] MEDS ORDERED: HYDR-3422 PO (19:57)
[2025-08-28] MEDS ORDERED: FOLI0.8T53 PO (19:57)
[2025-08-28] MEDS ORDERED: CHLO25TA3 PO (19:57)
[2025-08-28] MEDS ORDERED: METO5 PO (19:57)
[2025-08-28] MEDS ORDERED: SODI650T PO (19:57)
[2025-08-28] MEDS ORDERED: CHOL500062 PO (19:57)
[2025-08-28] MEDS ORDERED: INSU3INS3 SQ (19:57)
[2025-08-28] MEDS ORDERED: LEVO250T75 PO (19:57)
[2025-08-28] MEDS ORDERED: MOME45CR3 TP (19:57)
[2025-08-28] MEDS ORDERED: SEVE800T27 PO (19:57)
[2025-08-28] MEDS ORDERED: MELA1TAB16 PO (19:57)
[2025-08-28] MEDS ORDERED: LACT-441 PO (19:57)
[2025-08-28] MEDS: amLODIPine 5 MG TAB PO SCH (20:00)
[2025-08-29] VITALS (89 sets, daily range): BP systolic 118–157; BP diastolic 45–91; PULSE 79–114; RESP 7–113; TEMP 98.1–98.7; O2SAT 94–98
[2025-08-29 05:00] LABS: IMMATURE GRANULOCYTE ABSOLUTE 0.32 K/uL (0-1); NUCLEATED RED BLOOD CELLS 0.1 % (0.0-0.19); PLATELET COUNT (AUTO) 237 K/uL (130-400); RED BLOOD CELL COUNT(AUTO) 2.39 MIL/uL (4.00-5.50); RED CELL DISTRIBUTION WIDTH 14.5 % (11.0-15.5); WHITE BLOOD COUNT (AUTO) 20.5 K/uL (4.8-10.8)
[2025-08-29 05:24] LABS: ASPARTATE AMINOTRANSFERASE 111.0 U/L (10-37); CREATININE 3.0 mg/dL (0.5-1.0); GLOMERULAR FILTR. RATE CALC 15.0 mL/min (>90); GLUCOSE,RANDOM 150.0 mg/dL (70-105); SODIUM SERUM 136.0 mmol/L (136-145); TOTAL PROTEIN, SERUM 6.5 g/dL (6.0-8.3)
[2025-08-29 05:25] LABS: UREA NITROGEN, BLOOD 82.0 mg/dL (7-18)
--- NOTE | 2025-08-29 07:17 | PN ---
[facility] Cardiology Progress Note CARDIOLOGY PROGRESS NOTE AUGUST 29, 2025 Problems: 1. Sepsis with lactic acid level of 5.8 2. Bilateral pneumonia 3. Non ST-elevation myocardial infarction type 4. CAD with a chronic occlusion of the LAD filling via collaterals January 2016 unstable angina history 5. Hypertension 6. Dyslipidemia 7. Diabetes mellitus type 2 8. Hypothyroidism 9. Right carotid bruit with normal carotid Doppler exam 2016 10. Normocytic anemia 11. Acute on chronic kidney disease with a GFR of 15 on admission 12. Advanced age 13. DNR status Blood pressure is running 130-140 systolic heart rate is 95-100 per minute. White count 05674 hemoglobin 7.6 platelet count [id number]. Potassium 4.2 BUN77 creatinine 3.0 unchanged from admission. [place] [address]. Electrocardiogram showed no acute ST changes. the patient continues on aspirin amlodipine clopidogrel insulin scale metoprolol tartrate 12.5 mg q.8 hours. The patient denies any chest pain. We will taper off intravenous nitroglycerin today and start oral nitrates. We will increase her beta jessica dose and hold her amlodipine. 2D echo be used to assess LV function. Plans are for conservative management. NANO HE MD Aug 29, 2025 07:17
--- NOTE | 2025-08-29 07:42 | HMCIMG ---
EXAMINATION: ULTRASOUND OF THE RETROPERITONEUM. CLINICAL HISTORY: Cystitis. To rule out hydronephrosis. COMPARISON: CT abdomen and pelvis without contrast dated from the same day. TECHNIQUE: Real-time grayscale ultrasound images of the kidneys. FINDINGS: The left kidney is not well visualized, obscured by overlying bowel gas. The right kidney is normal in caliber, the right kidney measures 9.2 x 3.3 x 3.4 cm in its craniocaudal, AP, and transverse dimensions respectively. There is normal renal cortical thickness, and increased cortical echogenicity. There is no renal calculus or hydronephrosis. There is a simple cortical cyst that measures 0.8 x 0.8 cm in the right renal upper pole. The urinary bladder is empty. There is Yeager???s bulb. IMPRESSION: Suboptimal visualization of the left kidney. Right renal parenchymal disease. Right renal simple cortical cyst. Yeager???s bulb is in situ. /[place]
--- NOTE | 2025-08-29 07:59 | CONS ---
NEPHROLOGY CONSULTATION NOTE Date of Service: Aug 29, 2025 Reason for Consultation: [ Elevated Creatinine ] Requesting Physician: [ Dr. Krishnamurthy ] HISTORY OF PRESENT ILLNESS: The patient, an 85-year-old female with a past medical history of Coronary artery disease (CAD), Hypertension, Hyperlipidemia, Diabetes mellitus type 2, Hypothyroidism, Chronic kidney disease, Perez's esophagus, Prior bladder surgeries. The patient presented to the emergency department from a group home facility with shortness of breath and chest pain. EMS reported oxygen saturation of 85% on 5 liters of oxygen via nasal cannula, increased to 10 liters on a non-rebreather. Initial lab results included a white blood count of 17.5, red blood count of 2.37, hemoglobin of 7.6, hematocrit of 23.1, and a platelet count of 254. Sodium level was 135, potassium 4.2, carbon dioxide 18, and creatinine clearance at 3 with a GFR of 15. Calcium was 7.5, lactic acid 5.8, random glucose at 379, creatinine kinase 323, and troponin at 2392. Imaging suggested bilateral airspace disease, more pronounced on the right, concerning for pneumonia, pleural effusions, and bladder issues. A CT scan revealed a prolapsed urinary bladder due to the Xavier catheter, bladder wall thickening consistent with cystitis, and atherosclerosis without obstructions. Echo completed today LVEF 25-30%; patient responded to diureses with 1100 ml total urine output yesterday. Patient was admitted with a diagnosis of sepsis and NSTEMI. Nephrology was consulted for elevated creatinine clearance. During evaluation patient is stable; awake and alert and answering questions appropriately with family at bedside. Patient and family did make me aware of advanced directives DNR/DNI additionally stated she declines hemodialysis in event renal function does not return to baseline. Today she had approximately 600ml of urine in xavier bag at bedside since this morning. REVIEW OF SYSTEMS CONSTITUTIONAL: Denies fever, chills, or fatigue. HEAD/FACE: No signs of trauma. EENT: Denies eye pain, blurred vision, double vision, or light sensitivity. RESPIRATORY: Denies shortness of breath, cough, wheezing CARDIOVASCULAR: Denies chest pain, palpitation, syncope GASTROINTESTINAL/ABDOMINAL: Denies abdominal pain, constipation, diarrhea, nausea or vomiting GENITOURINARY: Denies dysuria or hematuria. MUSCULOSKELETAL: Denies joint pain, tenderness, or trauma. INTEGUMENTARY: Denies rash or itchiness NEUROLOGICAL/PSYCH: Denies anxiety, depression, heat or cold intolerance. PAST MEDICAL HISTORY: - Coronary artery disease (CAD) - Hypertension - Hyperlipidemia - Diabetes mellitus type 2 - Hypothyroidism - Chronic kidney disease - Perez's esophagus - Prior bladder surgeries PAST SURGICAL HISTORY: -Cholecystectomy -Spine surgery PAST SOCIAL HISTORY: Resides at [facility]; Denies use of drugs, alcohol, or smoking FAMILY HISTORY: -non-contributory Coded Allergies: No Known Allergies (Verified Allergy, Unknown, 12/27/20) ceftriaxone (Unverified Allergy, Unknown, 08/28/25) dupilumab (Unverified Allergy, Unknown, 08/28/25) hydrochlorothiazide (Unverified Allergy, Unknown, 08/28/25) mirabegron (Unverified Allergy, Unknown, 08/28/25) oxybutynin (Unverified Allergy, Unknown, 08/28/25) pioglitazone (Unverified Allergy, Unknown, 08/28/25) PHYSICAL EXAM EYES: Anicteric. Pupils equal and reactive. HENT: No oral thrush seen, moist Oral mucosa NECK: Supple LUNGS: Rales bilateral lobes CARDIOVASCULAR: RRR ABDOMEN: Soft, non tender, bowel sounds present, no organomegaly CENTRAL NERVOUS SYSTEM: Awake, alert, oriented x 3. No focal deficits. EXTREMITIES: No edema GENITOURINARY: Xavier Catheter present Vital Sign (Last 24 Hours) 08/29/25 08/29/25 08/29/25 08/29/25 06:54 07:15 07:18 07:30 Temp 98.2 Pulse 88 Resp 18 B/P (MAP) 128/73 (91) Pulse Ox 98 O2 Delivery Nasal Cannula* O2 Flow Rate 5 FiO2 40 Intake & Output (last 24hrs) 08/28/25 08/28/25 08/29/25 15:00 23:00 07:00 Intake Total 564.5 ml 391.5 ml Output Total 700 ml 400 ml Balance -135.5 ml -8.5 ml LABS: Laboratory: Test 08/29/25 06:00 08/29/25 04:32 08/29/25 00:44 08/28/25 15:24 Range/Units Whole Blood Glucose 160 H 70-110 MG/DL White Blood Count 20.5 #H 4.8-10.8 K/uL Red Blood Count 2.39 L 4.00-5.50 MIL/uL Hemoglobin 7.6 L 12.0-16.0 g/dL Hematocrit 22.3 L 36-48 % Mean Corpuscular Volume 93.3 79-99 fL Mean Corpuscular Hemoglobin 31.8 27.0-33.0 pg Mean Corpuscular Hemoglobin Concent 34.1 32.0-36.0 g/dL Red Cell Distribution Width 14.5 11.0-15.5 % Platelet Count 237 130-400 K/uL Mean Platelet Volume 10.5 7.5-10.5 fL Immature Granulocyte % (Auto) 1.6 H 0-1 % Neutrophils (%) (Auto) 74.7 40.0-77.0 % Lymphocytes (%) (Auto) 11.4 L 21.0-51.0 % Monocytes (%) (Auto) 12.2 3.0-13.0 % Eosinophils (%) (Auto) 0.0 0.0-8.0 % Basophils (%) (Auto) 0.1 0.0-5.0 % Neutrophils # (Auto) 15.3 H 1.8-7.7 K/uL Lymphocytes # (Auto) 2.3 1.0-4.8 K/uL Monocytes # (Auto) 2.5 H 0.1-1.0 K/uL Eosinophils # (Auto) 0.00 0.00-0.70 K/uL Basophils # (Auto) 0.02 0.00-0.20 K/uL Absolute Immature Granulocyte (auto 0.32 0-1 K/uL Nucleated Red Blood Cells 0.1 0.0-0.19 % Sodium Level 136 136-145 mmol/L Potassium Level 3.7 3.5-5.1 mmol/L Chloride Level 100 L 101-111 mmol/L Carbon Dioxide Level 21 21-32 mmol/L Blood Urea Nitrogen 82 *H 7-18 mg/dL Creatinine 3.0 H 0.5-1.0 mg/dL Glomerular Filtration Rate Calc 15 >90 mL/min Random Glucose 150 #H 70-105 mg/dL Total Calcium 8.0 L 8.5-10.1 mg/dL Magnesium Level 2.00 1.80-2.40 mg/dL Total Bilirubin 0.4 0.2-1.0 mg/dL Aspartate Amino Transf (AST/SGOT) 111 H 10-37 U/L Alanine Aminotransferase (ALT/SGPT) 23 12-78 U/L Alkaline Phosphatase 68 50-136 U/L B-Type Natriuretic Peptide > 5000 H 0-100 pg/mL Total Protein 6.5 6.0-8.3 g/dL Albumin 2.4 L 3.5-5.0 g/dL Procalcitonin 1.58 H 0.05-0.5 ng/mL Troponin I High Sensitivity 17770 *H 4-50 ng/L Total Creatine Kinase 945 *H 21-232 U/L Test 08/28/25 12:37 08/28/25 07:34 08/28/25 07:18 08/28/25 04:37 Range/Units Bedside Glucose Comment Notified Nurse Prothrombin Time 12.1 H 9.6-11.6 SEC Prothromb Time International Ratio 1.16 H 0.85-1.15 Activated Partial Thromboplast Time > 139.0 #*H 26.3-35.5 SEC Lactic Acid Level 1.5 0.8-2.5 mmol/L Urine Color LIGHT-YELLOW YELLOW Urine Appearance CLEAR CLEAR Urine pH 5.5 5.0-8.0 Urine Specific [place] 1.013 1.001-1.031 Urine Protein 200 H NEGATIVE mg/dL Urine Glucose (UA) 200 H NEGATIVE mg/dL Urine Ketones NEGATIVE NEGATIVE mg/dL Urine Occult Blood SMALL H NEGATIVE Urine Nitrate NEGATIVE NEGATIVE Urine Bilirubin NEGATIVE NEGATIVE mg/dL Urine Urobilinogen 0.2 0.2-1.0 mg/dL Urine Leukocyte Esterase 25 H NEGATIVE Keo/uL Urine RBC 2-5 H 0-1 /HPF Urine WBC 6-10 H 0-1 /HPF Urine Squamous Epithelial Cells RARE 0-2 /HPF Urine Bacteria MANY None Seen /HPF Urine Hyaline Casts 2-5 H 0-1 /LPF /LPF Test 08/28/25 01:37 08/28/25 00:44 08/28/25 00:41 08/28/25 00:05 Range/Units Whole Blood Ketones Quantitative 0.1 0.0-0.6 mmol/L Influenza Type A Antigen Negative For Type A NEGATIVE Influenza Type B Antigen Negative For Type B NEGATIVE SARS-CoV-2 Antigen (Rapid) PRESUMPTIVE NEGATIVE NEGATIVE Group A Streptococcus Rapid negative NEGATIVE Blood Gas Specimen Type Arterial Arterial Blood pH 7.392 7.350-7.450 Arterial Blood Partial Pressure CO2 29 L 32-45 mmHg Arterial Blood Partial Pressure O2 84.4 83.0-108.0 mmHg Arterial Blood HCO3 17.2 L 21.0-28.0 mmol/L Arterial Blood Oxygen Saturation 96.4 94.0-98.0 % Arterial Blood Base Excess -6.2 L -2.0-3.0 mmol/L Blood Gas Temperature 37.0 35.5-37.0 CELSIUS Blood Gas Flow-by 15.00 0.00-15.00 L/min Blood Gas Vent Mode RR NRB ROOM AIR FiO2 100.0 % Blood Gas Specimen Comment RN FELIPA White Cell Morphology Comment See comments DIAGNOSTICS / RADIOLOGY: [ ] ASSESSMENT: Acute on chronic kidney injury Underlying CKD stage 3 Sepsis NSTEMI Anemia Pleural Effusion/Vascular Congestion Leukocytosis BNP >5000 Hypocalcemia Hypoalbuminemia Heart Failure PLAN: 1. Acute on chronic kidney injury- Underlying CKD stage 3; etiology presumed hemodynamic in setting of heart failure. Probable cardiorenal component; patient has declined dialysis. Hold RAAS blockers, no NSAIDs; renal dose antibiotics; agree with diuresis to improve forward flow; furosemide 20mg IV q12hrs; continue with strict I&O; Fluid restriction 1 liter; repeat labs in the morning. 2. Sepsis/Leukocytosis- ID following; renal dose antibiotics; trend labs. 3. NSTEMI/Heart Failure -BNP >5000 ; LVEF is 25-30%, Stage II, diastolic dysfunction; continue with diuresis at this time; cardiology following. 4. Anemia- keep hgb above 10%; epogen today; order FOBT. 5. Pleural Effusion/Vascular Congestion- agree with diuresis to improve forward flow; furosemide 20mg IV q12hrs; 6. Hypocalcemia- vitamin D, phos in AM; trend labs. 7. Hypoalbuminemia- trend labs. This visit was rendered and documented by Dereje Pulido, MSN, REGROOVER, [employer] and completed in collaboration with my supervising physician Tonja Arthur MD. DEREJE PULIDO Aug 29, 2025 07:59
[2025-08-29] MEDS: ISOSORBIDE MONO 30MG SR TAB PO SCH (08:11)
--- NOTE | 2025-08-29 08:25 | HMCIMG ---
EXAMINATION: CT EXAMINATION OF THE CHEST WITHOUT CONTRAST CLINICAL HISTORY: Rule out complicated UTI. TECHNIQUE: Thin collimated axial CT images of the chest were obtained with sagittal and coronal reformatted images also submitted for interpretation. The total dose length product has been recorded in the electronic medical record. COMPARISON: None. FINDINGS: Central airways are patent. There is moderate bilateral pleural effusion with partial collapse consolidation of both lower lobes. Patchy ground glass opacity in the mid to upper lung marley bilaterally, right greater than left. This may be due to infection or edema. Fibroatelectatic bands in both lower lobes and lingula. No pericardial effusion. The heart size is within normal limits. There are atheromatous wall calcification of the aorta and coronary arteries. The ascending aorta measures 3.5 x 3.4 cm. There is no axillary, supraclavicular, or mediastinal lymphadenopathy. Hilar evie stations are inadequately assessed without intravenous contrast. There is no focal thyroid abnormality. Limited noncontrast views of the upper abdomen demonstrate no acute findings. There is multilevel mild degenerative spondylosis of the spine. There is no acute osseous abnormality. IMPRESSION: Moderate bilateral pleural effusion with partial collapse and consolidation of both lower lobes. Patchy ground glass opacity in the mid to upper lung marley bilaterally, right greater than left. This may be due to infection or edema. Fibroatelectatic bands in both lower lobes and lingula. Atherosclerosis and coronary artery disease. EXAMINATION: CT Abdomen and Pelvis without contrast. CLINICAL HISTORY: Rule out complicated UTI. TECHNIQUE: Multiple contiguous axial CT images were obtained through the abdomen and pelvis. Coronal and sagittal reconstructions were also obtained. COMPARISON: None. FINDINGS: The gallbladder is surgically absent. No renal or ureteral stones. No hydronephrosis. Diffuse bilateral renal and infrarenal segmental arteries calcifications. The liver, spleen, pancreas, and adrenal glands appear within normal limits. Fecal matter filled large bowel loops. Rest of the bowel loops are normal in caliber without evidence of obstruction, ileus, or obvious bowel wall thickening. Urinary bladder is sub-optimally distended with diffuse wall thickening and Yeager???s bulb in situ. Uterus and ovaries are unremarkable. There is no ascites or lymphadenopathy. There are atheromatous wall calcification of the aorta, its branches, and both iliac arteries. No acute or suspicious osseous abnormality. There are multilevel moderate degenerative spondylotic changes of the spine. Anterior listhesis of L4 in relation to L5 and levoscoliosis. IMPRESSION: Prolapsed urinary bladder due to the Yeager catheter. Bladder wall thickening which may be due to underdistention or cystitis. No urinary calculi. No hydronephrosis. No bowel obstruction or inflammation. Constipation. Atherosclerosis. /[place]
--- NOTE | 2025-08-29 11:52 | PN ---
[facility] PROGRESS NOTE Date Patient Seen: Aug 29, 2025 Time of Visit: 11:43 Supervising Physician: Dr Bud Herrera Primary Care Physician: CHANCE LAWS MD ATTENDING PHYSICIAN: DR JOSE WELSH Outpatient Specialists: [ ] Inpatient Consults: CCM - BIS, CARDIOLOGY - DR BHATTI PROBLEM LIST: NSTEMI II Acute hypoxemic respiratory failure Suspected healthcare associated pneumoniae Acute complicated cystitis POA Acute on chronic CKD CAD, chronic total occlusion of the LAD Normocytic normochromic anemia Hypertension Hyperlipidemia Hyperglycemia in the presence of Type 2 diabetes mellitus Hypothyroidism INTERVAL HISTORY: Patient was seen and examined, all labs and imaging have been reviewed, patient is sitting comfortably in bed. Currently on a non-rebreather Good O2 saturations She is awake alert and oriented, patient is talking with her son at bedside. States she has minimal [place] [address], this is downtrending, today's chest x-ray is pending but review of chest x-ray from 08/27 reveals vascular congestion with a moderate right pleural effusion with atelectasis Cultures are negative she continues on Zyvox cefepime and doxycycline Continues on the heparin drip, Patient's BNP is greater than 5000, Plan: Pending cardiology recs, recommending diuresis Urine output 1100 overnight Following nephrology recs Continue to follow cultures, continue on antibiotics Heparin drip per protocol Follow pending x-ray Supplemental O2 Cardiac diet Critical care time 44 minutes, time excludes any procedures or educational time. Patient remains critically ill, currently on heparin drip with elevated troponins. REVIEW OF SYSTEMS: Const: no fever, fatigue, or weight changes Eyes: no recent vision problems ENT: No congestion, ear pain, or sore throat C/V: + chest pain, palpitations, shortness for breath Resp:+ shortness of the breath GI: No abdominal pain, nausea, vomiting, constipation, or diarrhea : No incontinence of or dyuria M/S: No joint or pain swelling Skin: No rash Neuro: no headache, focal numbness, or weakness, dizziness or seizures Psych: no depression or anxiety Heme: no abnormal bruising or bleeding Lymph: no swollen glands PHYSICAL EXAM: GENERAL: alert, weak, awake oriented x 3 HEENT: EOMI, Sclera non icteric, moist mucosa NECK: Supple, no JVD, trachea midline LUNGS: Diminished breath sounds bilaterally. No wheezes HEART: Regular rate and rhythm. Normal S1 and S2, without murmurs ABD: Abdomen soft, nontender. Bowel sounds present EXT: No clubbing cyanosis or edema NEURO: Alert and oriented to person, follows commands Vital Signs (last 8hr) Date Time Temp Pulse Resp B/P (MAP) Pulse Ox O2 Delivery O2 Flow Rate FiO2 08/29/25 11:32 95 18 N/Cannula Low lpm 3.0 32 08/29/25 11:31 97 17 08/29/25 11:00 96 19 144/78 (100) 95 32 08/29/25 10:45 102 21 145/77 (99) 97 08/29/25 10:30 96 24 141/83 (102) 97 08/29/25 10:15 96 20 138/85 (102) 96 08/29/25 10:00 96 21 136/83 (100) 95 32 08/29/25 09:45 95 24 135/75 (95) 96 08/29/25 09:30 95 24 140/78 (98) 97 32 08/29/25 09:15 96 19 140/75 (96) 97 32 08/29/25 09:00 92 20 139/73 (95) 96 08/29/25 08:39 79 22 136/73 (94) 97 08/29/25 08:25 95 26 126/45 (72) 96 08/29/25 08:12 93 22 137/72 (93) 91 08/29/25 08:00 95 18 136/90 (105) 97 08/29/25 07:45 86 19 131/77 (95) 97 08/29/25 07:30 98 Nasal Cannula* 5 40 08/29/25 07:30 87 19 134/75 (94) 97 08/29/25 07:18 98.2 Nasal Cannula 5.0 08/29/25 07:15 86 18 132/78 (96) 98 08/29/25 07:15 88 18 N/Cannula Low lpm 5.0 40 08/29/25 06:54 88 7 128/73 (91) 96 08/29/25 06:39 92 14 119/69 (86) 96 08/29/25 06:24 96 17 133/79 (97) 97 08/29/25 06:09 98 21 122/73 (89) 97 08/29/25 05:55 107 27 130/71 (90) 95 08/29/25 05:40 114 113 132/88 (103) 98 08/29/25 05:24 95 21 144/84 (104) 96 08/29/25 05:09 96 28 146/91 (109) 96 08/29/25 04:54 95 19 135/82 (99) 97 08/29/25 04:39 94 14 142/81 (101) 95 08/29/25 04:34 89 22 40 08/29/25 04:24 94 28 144/89 (107) 95 08/29/25 04:22 98 Nasal Cannula* 3 32 08/29/25 04:09 95 19 140/81 (100) 91 08/29/25 03:54 98.4 99 32 139/81 (100) 88 LABS: Hematology Labs: Test 08/29/25 04:32 08/28/25 00:05 Range/Units White Blood Count 20.5 #H 4.8-10.8 K/uL Red Blood Count 2.39 L 4.00-5.50 MIL/uL Hemoglobin 7.6 L 12.0-16.0 g/dL Hematocrit 22.3 L 36-48 % Mean Corpuscular Volume 93.3 79-99 fL Mean Corpuscular Hemoglobin 31.8 27.0-33.0 pg Mean Corpuscular Hemoglobin Concent 34.1 32.0-36.0 g/dL Red Cell Distribution Width 14.5 11.0-15.5 % Platelet Count 237 130-400 K/uL Mean Platelet Volume 10.5 7.5-10.5 fL Immature Granulocyte % (Auto) 1.6 H 0-1 % Neutrophils (%) (Auto) 74.7 40.0-77.0 % Lymphocytes (%) (Auto) 11.4 L 21.0-51.0 % Monocytes (%) (Auto) 12.2 3.0-13.0 % Eosinophils (%) (Auto) 0.0 0.0-8.0 % Basophils (%) (Auto) 0.1 0.0-5.0 % Neutrophils # (Auto) 15.3 H 1.8-7.7 K/uL Lymphocytes # (Auto) 2.3 1.0-4.8 K/uL Monocytes # (Auto) 2.5 H 0.1-1.0 K/uL Eosinophils # (Auto) 0.00 0.00-0.70 K/uL Basophils # (Auto) 0.02 0.00-0.20 K/uL Absolute Immature Granulocyte (auto 0.32 0-1 K/uL Nucleated Red Blood Cells 0.1 0.0-0.19 % White Cell Morphology Comment See comments Chemistry Labs: Test 08/29/25 10:50 08/29/25 04:32 08/29/25 00:44 08/28/25 15:24 Range/Units Whole Blood Glucose 257 #H 70-110 MG/DL Sodium Level 136 136-145 mmol/L Potassium Level 3.7 3.5-5.1 mmol/L Chloride Level 100 L 101-111 mmol/L Carbon Dioxide Level 21 21-32 mmol/L Blood Urea Nitrogen 82 *H 7-18 mg/dL Creatinine 3.0 H 0.5-1.0 mg/dL Glomerular Filtration Rate Calc 15 >90 mL/min Random Glucose 150 #H 70-105 mg/dL Total Calcium 8.0 L 8.5-10.1 mg/dL Magnesium Level 2.00 1.80-2.40 mg/dL Total Bilirubin 0.4 0.2-1.0 mg/dL Aspartate Amino Transf (AST/SGOT) 111 H 10-37 U/L Alanine Aminotransferase (ALT/SGPT) 23 12-78 U/L Alkaline Phosphatase 68 50-136 U/L B-Type Natriuretic Peptide > 5000 H 0-100 pg/mL Total Protein 6.5 6.0-8.3 g/dL Albumin 2.4 L 3.5-5.0 g/dL Procalcitonin 1.58 H 0.05-0.5 ng/mL Troponin I High Sensitivity 48479 *H 4-50 ng/L Total Creatine Kinase 945 *H 21-232 U/L Test 08/28/25 12:37 08/28/25 07:18 08/28/25 01:37 Range/Units Bedside Glucose Comment Notified Nurse Lactic Acid Level 1.5 0.8-2.5 mmol/L Whole Blood Ketones Quantitative 0.1 0.0-0.6 mmol/L Coagulation Labs: Test 08/28/25 07:34 08/28/25 07:18 Range/Units Prothrombin Time 12.1 H 9.6-11.6 SEC Prothromb Time International Ratio 1.16 H 0.85-1.15 Activated Partial Thromboplast Time > 139.0 #*H 26.3-35.5 SEC DIAGNOSTICS / RADIOLOGY RESULTS: [ ] PLAN Plan: NEURO: Minimize central acting medications as possible. Fall Precautions. Well lighted room through the day and minimize interruptions through the night to prevent acute delirium. PULMONARY: Supplemental 02 as needed Titrate Fio2 to keep Spo2 > or = 90% DuoNebs and CPT as needed IS hourly while awake for pulmonary hygiene Out of bed to chair as tolerated CARDIOVASCULAR: Follow hemodynamics. Titrate vasopressor to keep MAP >65 or systolic blood pressure >95mmHg Drips: Heparin drip discontinued per Cardiology Nitroglycerin drip per protocol LINES: PIV GI & NUTRITION: Continue nutritional support Aspirations precautions Prokinetic agents and laxatives as needed KIDNEYS & ELECTROLYTES: Strict monitoring of intake and output Daily weights Avoid nephrotoxic agents Monitor electrolytes and replace as needed Goal urine output of 30mL/hr or 0.5mL/kg/hr Yeager catheter ENDOCRINE: Maintain blood glucose between 100-180 at all times. Insulin sliding scale for blood glucose management INFECTIOUS DISEASE: Trend temperature. Soto-culture if febrile. Micro: [ ] Respiratory culture Blood cultures urine culture Antibiotics: [ ] Cefepime flagyl Zyvox HEMATOLOGY & COAGULATION: Monitor H&H. Keep Hgb > 7 Transfuse 1 unit of PRBC for Hgb < 7 Transfuse 1 pack of platelets of platelets < 20, 000 Watch for any signs and symptoms of bleeding SKIN: Pressure ulcer prevention per facility protocol Rehab: PT/OT Prophylaxis: GI: Protonix DVT: scd Code Status: Full Resuscitation Disposition: [ icu] Case was discussed and seen with my supervising physician. The above plan was formulated and agreed upon. NANO FERGUSON PAC Aug 29, 2025 11:52
--- NOTE | 2025-08-29 13:03 | HMCSR ---
APPROVED REPORT EXAM: Two-dimensional and M-mode echocardiogram with Doppler and color Doppler. INDICATION ICD: I21.4 Non ST-elevation NH 2D Dimensions RVDd3.7 cmLVEF(%)30.0 (>50%)LVED Vol(simp.)117.0 mL IVSd1.2 (0.7-1.1cm)FS(%)14 %LVES Vol(simp.)88.0 mL LVDd5.3 (3.8-5.6cm)LA (2D)4.6 (1.6-4.0cm)LVEF(%, simp.)25 % PWd1.0 (0.7-1.1cm)Ao Root(2D)2.6 (2.0-3.7cm)LA ESV INDEX (BP)42.71 mL/m2 IVSs1.1 cmLVOT diam2.2 (1.8-2.4cm) LVDs4.5 (2.5-4.0cm) PWs1.5 cm Deformation Strain Apical 4-7.2 % Apical 2-6.6 % Apical 3-7.0 % Global Strain-6.9 % M-Mode Dimensions EPSS1.0 cm LA (MM)4.9 (1.6-4.0cm) Ao Root(MM)2.9 (2.0-3.7cm) Aortic Valve AoV Vmax2.4 m/[place] Peak GR23.3 mmHgLVOT Vmax0.9 m/s AoV VTI0.4 mAo Mean GR13.1 mmHgLVOT VTI0.16 m DAYANA (VMAX)1.41 cm2AVA (VTI) 1.5 cm2 Mitral Valve MV E Vmax67.3 cm/sDECEL Xpkb335 ms MV A Vmax95.0 cm/sP 1/2 T36 ms E/A ratio0.7MVA (PHT)6.1 cm2 TDI E/E' Apbxuf20.5E/E' Ulpeetd90.2 Medial E' Peak V2.45 cm/sLateral E' Peak V1.81 cm/s Pulmonary Valve PV Vmax0.9 m/sPV VTI0.16 mPV Mean GR1.9 mmHg PV Peak GR3.2 mmHg Tricuspid Valve TR Vmax2.4 m/sRAP (EST) 8 reYeIUHZ41.0 mmHg TR Peak GR23.0 mmHg Left Ventricle The left ventricle is normal size. There is global hypokinesis of the left ventricle with apical and anteroseptal akinesis. There is mild left ventricular wall thickness. LVEF is 25-30%. Stage II, diast olic dysfunction. Right Ventricle The right ventricle is normal size. The right ventricular systolic function is normal. Atria The left atrium is mildly dilated. The right atrium size is normal. Aortic Valve Aortic valve is trileaflet, mildly thickened and opens well. No aortic regurgitation is present. Ther e is no aortic valvular stenosis. Mitral Valve The mitral valve is normal in structure. There is mild mitral valve regurgitation noted. There is no mitral valve stenosis. Tricuspid Valve The tricuspid valve is normal in structure. There is trace of tricuspid valve regurgitation noted. Pulmonic Valve Pulmonic valve is not well visualized. There is no pulmonic valvular regurgitation. Great Vessels The aortic root is normal in size. IVC is not well visualized. Pericardium There is no pericardial effusion. Other Information Quality : Adequate Conclusion The left ventricle is normal size. LVEF is 25-30% with global hypokinesis and anteroseptal and apical akinesis. There is mild left ventricular wall thickness. Stage II, diastolic dysfunction. The right ventricular systolic function is normal. The left atrium is mildly dilated. No hemodynamically significant valvular abnormalities. There is no pericardial effusion.
--- NOTE | 2025-08-29 15:19 | HMCIMG ---
EXAM: CR Chest, 1 View. CLINICAL HISTORY: pp COMPARISON: Radiograph dated August 28, 2025 FINDINGS: There is relatively unchanged multifocal airspace disease throughout the right lung and within the mid to lower left lung that may reflect a combination of alveolar edema and atelectasis. Small right pleural effusion. No pneumothorax. Heart size is stable. Pulmonary vascular congestion. IMPRESSION: 1. Multifocal airspace disease in right lung and mid to lower left lung, possibly representing alveolar edema and atelectasis, with small right pleural effusion and pulmonary vascular congestion. /[place]
[2025-08-29] MEDS ORDERED: PHARMACY COMMUNICATION MISC SCH (20:30)
[2025-08-29] MEDS: COMPOUND IV REFRIGERATED 1 EACH MISC ONE (21:09)
[2025-08-29] MEDS: EPOETIN ALFA-EPBX (NON-ESRD) 10,000 UNIT/ML VIAL SQ ONE (21:23)
[2025-08-30] VITALS (39 sets, daily range): BP systolic 115–142; BP diastolic 48–81; PULSE 69–100; RESP 10–24; TEMP 97.8–98.5; O2SAT 94–98
--- NOTE | 2025-08-30 02:23 | PN ---
INFECTIOUS DISEASE FOLLOWUP NOTE SUBJECTIVE: The patient is seen and examined at bedside today. No fever, no chills. No bleeding tendency. No palpitations. No orthopnea. Denies rashes or itchiness. The patient denies dysuria, frequency. No neck pain or neck swelling. No . PHYSICAL EXAMINATION: VITAL SIGNS: Temperature 97.5. EYES: No icterus. Pupils equal and reactive. HENT: No oral thrush seen. Moist oral mucosa. NECK: Supple. No JVD or thyromegaly. LUNGS: Good air entry. No rales, no rhonchi. CARDIOVASCULAR: S1 and S2 regular. No murmur heard. ABDOMEN: Soft, nontender. Bowel sounds present. CENTRAL NERVOUS SYSTEM: Awake, alert, oriented x 3. No focal deficits. SKIN: No rashes, no itchiness. LYMPHATIC: No peripheral lymphadenopathy. BACK: No deformities, no pressure ulcer. ASSESSMENT: An 85-year-old female with multiple problems, 1. Urinary tract infection. 2. Diabetes mellitus. 3. 4. Respiratory failure. 5. Heart failure. 6. Pneumonia. PLAN: 1. Continue cefepime. 2. Continue nutritional support. 3. Continue 4. Continue on telemetry. 5. Continue GI prophylaxis. 6. Monitor electrolytes. 7. The patient will be followed up closely. TID: [id number] RECEIPT: [id number]
[2025-08-30 04:30] LABS: IMMATURE GRANULOCYTE ABSOLUTE 0.19 K/uL (0-1); NUCLEATED RED BLOOD CELLS 0.4 % (0.0-0.19); PLATELET COUNT (AUTO) 226 K/uL (130-400); RED BLOOD CELL COUNT(AUTO) 2.30 MIL/uL (4.00-5.50); RED CELL DISTRIBUTION WIDTH 14.5 % (11.0-15.5); WHITE BLOOD COUNT (AUTO) 17.4 K/uL (4.8-10.8)
[2025-08-30 04:53] LABS: ASPARTATE AMINOTRANSFERASE 61.0 U/L (10-37); CREATINE KINASE, TOTAL 179.0 U/L (21-232); CREATININE 3.3 mg/dL (0.5-1.0); GLOMERULAR FILTR. RATE CALC 13.0 mL/min (>90); GLUCOSE,RANDOM 150.0 mg/dL (70-105); PHOSPHORUS 5.1 mg/dL (2.5-4.9); SODIUM SERUM 132.0 mmol/L (136-145); TOTAL PROTEIN, SERUM 6.4 g/dL (6.0-8.3)
[2025-08-30 04:58] LABS: UREA NITROGEN, BLOOD 88.0 mg/dL (7-18)
--- NOTE | 2025-08-30 07:34 | PN ---
[facility] CARDIOLOGY PROGRESS NOTE Date Patient Seen: Aug 30, 2025 Time of Visit: 07:27 Interval History: [Cr up to 3.3, CXR with worsening right sided opacities ] Physical Examination: GENERAL: [No acute distress.] HEAD: [Normal with no signs of head trauma.] EYES: [PERRLA, EOMI, conjunctiva and sclera normal.] ENT: [Hearing grossly intact, normal oropharynx.] NECK: [Supple without JVD. There is no tenderness, lymphadenopathy, or masses. No thyromegaly. Normal carotid upstrokes without bruits.] LUNGS: [Clear breath sounds bilaterally. There are right basilar rales one third of the way up the chest. No wheezes, or rhonchi.] HEART: [Normal rate and rhythm. Normal S1 and S2 without mumurs, gallop or rub.] VASC: [Peripheral pulses +2 bilaterally.] ABD: [Bowel sounds normal, soft, nontender, no masses, no organomegaly. No audible bruits.] : [Not examined] LYMPH: [No lymphadenopathy noted.] EXT: [No clubbing, cyanosis or edema.] SKIN: [No rashes or lesions noted.] NEURO: [Awake, alert, and oriented x3. No focal sensory or strength deficits noted.] Laboratory: [ ] Hematology Labs: Test 08/30/25 04:20 Range/Units White Blood Count 17.4 H 4.8-10.8 K/uL Red Blood Count 2.30 L 4.00-5.50 MIL/uL Hemoglobin 7.4 L 12.0-16.0 g/dL Hematocrit 21.5 L 36-48 % Mean Corpuscular Volume 93.5 79-99 fL Mean Corpuscular Hemoglobin 32.2 27.0-33.0 pg Mean Corpuscular Hemoglobin Concent 34.4 32.0-36.0 g/dL Red Cell Distribution Width 14.5 11.0-15.5 % Platelet Count 226 130-400 K/uL Mean Platelet Volume 10.8 H 7.5-10.5 fL Immature Granulocyte % (Auto) 1.1 H 0-1 % Neutrophils (%) (Auto) 75.4 40.0-77.0 % Lymphocytes (%) (Auto) 11.3 L 21.0-51.0 % Monocytes (%) (Auto) 11.9 3.0-13.0 % Eosinophils (%) (Auto) 0.1 0.0-8.0 % Basophils (%) (Auto) 0.2 0.0-5.0 % Neutrophils # (Auto) 13.2 H 1.8-7.7 K/uL Lymphocytes # (Auto) 2.0 1.0-4.8 K/uL Monocytes # (Auto) 2.1 H 0.1-1.0 K/uL Eosinophils # (Auto) 0.01 0.00-0.70 K/uL Basophils # (Auto) 0.03 0.00-0.20 K/uL Absolute Immature Granulocyte (auto 0.19 0-1 K/uL Nucleated Red Blood Cells 0.4 H 0.0-0.19 % Chemistry Labs: Test 08/30/25 06:16 08/30/25 04:20 08/29/25 00:44 08/28/25 12:37 Range/Units Whole Blood Glucose 145 H 70-110 MG/DL Sodium Level 132 L 136-145 mmol/L Potassium Level 3.9 3.5-5.1 mmol/L Chloride Level 98 L 101-111 mmol/L Carbon Dioxide Level 19 L 21-32 mmol/L Blood Urea Nitrogen 88 *H 7-18 mg/dL Creatinine 3.3 H 0.5-1.0 mg/dL Glomerular Filtration Rate Calc 13 >90 mL/min Random Glucose 150 H 70-105 mg/dL Total Calcium 8.1 L 8.5-10.1 mg/dL Phosphorus Level 5.1 H 2.5-4.9 mg/dL Magnesium Level 1.90 1.80-2.40 mg/dL Total Bilirubin 0.4 0.2-1.0 mg/dL Aspartate Amino Transf (AST/SGOT) 61 H 10-37 U/L Alanine Aminotransferase (ALT/SGPT) 18 # 12-78 U/L Alkaline Phosphatase 66 50-136 U/L Total Creatine Kinase 179 # 21-232 U/L B-Type Natriuretic Peptide 4400 H 0-100 pg/mL Total Protein 6.4 6.0-8.3 g/dL Albumin 2.2 L 3.5-5.0 g/dL Procalcitonin 1.66 H 0.05-0.5 ng/mL Troponin I High Sensitivity 62931 *H 4-50 ng/L Bedside Glucose Comment Notified Nurse Coagulation Labs: Test 08/28/25 07:34 Range/Units Prothrombin Time 12.1 H 9.6-11.6 SEC Prothromb Time International Ratio 1.16 H 0.85-1.15 Diagnostics / Radiology: [Copy/Paste Echos/Imaging Report here] Impression and Plan: [1. Sepsis with lactic acid level of 5.8 2. Bilateral pneumonia 3. Non ST-elevation myocardial infarction type 4. CAD with a chronic occlusion of the LAD filling via collaterals January 2016 unstable angina history 5. Hypertension 6. Dyslipidemia 7. Diabetes mellitus type 2 8. Hypothyroidism 9. Right carotid bruit with normal carotid Doppler exam 2016 10. Normocytic anemia 11. Acute on chronic kidney disease with a GFR of 15 on admission 12. Advanced age 13. DNR status 14. Grade II diastolic dysfunction 15. Severe systolic heart failure LVEF 25-30% #[place] [id number]. Electrocardiogram showed no acute ST changes. the patient continues on aspirin, clopidogrel, metoprolol tartrate 25 mg q.8 hours. The patient denies any chest pain. -imdur 30 mg qd -2D echo with grade II diastolic dysfunction and severe systolic heart failure with LVEF 25-30% -Plans are for conservative management. #Severe systolic heart failure -Cr uptrending to 3.3 -Urine output reduced -Lasix 40 mg IV bid #KOSTA on CKD -consult nephrology to assist with diuretic dosing Maria D Mrianda MD ] MAIRA D MIRANDA MD Aug 30, 2025 07:34
--- NOTE | 2025-08-30 08:00 | PN ---
NEPHROLOGY FOLLOWUP NOTE INTERVAL HISTORY: The patient was evaluated this morning with nursing staff. Urine output recorded as 400 mL of clear urine. Otherwise, hemodynamically stable overnight. Echocardiogram reviewed with EF of 25% to 30% and stage 2 diastolic dysfunction. PHYSICAL EXAMINATION: CURRENT VITAL SIGNS: Temperature is 98.4, pulse 76, blood pressure 128/62, respiratory rate is 16, and saturating currently 94% on 3 liters nasal cannula. GENERAL: The patient is resting comfortably on supplemental oxygen and is alert. CARDIAC: Regular rate and rhythm. CHEST: Coarse breath sounds anteriorly. ABDOMEN: Soft, nontender. EXTREMITIES: No edema. LABORATORY DATA: White count 17.4, hemoglobin 7.4, hematocrit 21.5, and platelet count 226,000. Sodium is 132, potassium is 3.9, chloride 98, bicarb is 19, BUN is 88, creatinine is 3.3, calcium 8.1, phosphorus 5.1, magnesium 1.9, AST 61, ALT is 18, BNP is 4400, and albumin of 2.2. ASSESSMENT: 1. [id number] kidney injury. 2. Underlying CKD stage 3. 3. Hyponatremia. 4. Acute volume overload. 5. Possible pneumonia. 6. Urinary tract infection. 7. Acute hypoxic respiratory failure. 8. Acute on chronic systolic dysfunction. 9. Non-ST elevation myocardial infarction. 10. Leukocytosis. 11. Anemia. 12. History of diabetes. 13. Hypertension. PLAN: 1. Acute on chronic kidney injury. Again, acute insult, presumed hemodynamic in the setting of acute illness, acute infection, probable cardiorenal component given suppressed EF of 25% to 30%. At this time, continue with supportive care, treatment of acute issues, treat acute infection, avoid hypotension. Plan for diuresis today. Given slight trend-up in creatinine, we may need to hold diuretics, monitor urine output, avoid nephrotoxins, renal dose all medications. 2. Hyponatremia, will trend, possibly related to over diuresis, may need adjustment of diuretics. 3. Acute volume overload. Again in the setting of suppressed EF. At this time, continue with diuretics by monitoring renal function closely. May need to hold if clearance trends downward. 4. Pneumonia. Renal dose antibodies. Follow up cultures. 5. Acute hypoxic respiratory failure. The patient remains on supplemental oxygen. Continue to treat acute infection. Continue with diuresis. We will monitor renal function closely. 6. Non-ST elevation myocardial infarction. Follow recommendations from Cardiology. Echocardiogram reviewed. 7. Leukocytosis. Trend labs. Currently on IV antibiotics. Follow up cultures. 8. Anemia. Will need fecal occult as well. TID: [id number] RECEIPT: [id number]
--- NOTE | 2025-08-30 13:13 | PN ---
[facility] PROGRESS NOTE Date Patient Seen: Aug 30, 2025 Time of Visit: 13:13 Supervising Physician: Dr Lizzeth Herrera Primary Care Physician: CHANCE LAWS MD ATTENDING PHYSICIAN: DR JOSE WELSH Outpatient Specialists: [ ] Inpatient Consults: CCM - BIS, CARDIOLOGY - DR BHATTI PROBLEM LIST: NSTEMI II Acute hypoxemic respiratory failure Suspected healthcare associated pneumoniae Acute complicated cystitis POA Acute on chronic CKD CAD, chronic total occlusion of the LAD Normocytic normochromic anemia Hypertension Hyperlipidemia Hyperglycemia in the presence of Type 2 diabetes mellitus Hypothyroidism INTERVAL HISTORY: Patient was seen and examined, all labs and imaging have been reviewed, patie nt's is sitting out of bed to the chair, comfortable, no complaints, no family at bedside Nursing reports no acute events overnight Afebrile Patient's white count downtrending 17 this morning, unfortunately renal function is also down Chest x-ray reveals a right pleural effusion versus congestion Even echo from 08/29 reveals an EF of 20-25% with diastolic dysfunction type 2 The ultrasound from the prior day reveal confirmed CKD Patient is off any drips are pressors, off the nitro Continues on Lasix 40 q.12 per per Cardiology Continues on aspirin Plavix, statin She continues on Zyvox for UTI positive for E coli and cultures GI prophylaxis Protonix Plan: Of continue to follow cardiology recs, continues to diurese Follow I&Os Follow nephrology recs Continue follow cultures, antibiotics, Patient has been downgraded to PCCU with tele Supplemental O2. Pending family discussion Critical care time 41 minutes, time excludes any procedures or educational time. REVIEW OF SYSTEMS: Const: no fever, fatigue, or weight changes Eyes: no recent vision problems ENT: No congestion, ear pain, or sore throat C/V: + chest pain, palpitations, shortness for breath Resp:+ shortness of the breath GI: No abdominal pain, nausea, vomiting, constipation, or diarrhea : No incontinence of or dyuria M/S: No joint or pain swelling Skin: No rash Neuro: no headache, focal numbness, or weakness, dizziness or seizures Psych: no depression or anxiety Heme: no abnormal bruising or bleeding Lymph: no swollen glands PHYSICAL EXAM: GENERAL: alert, weak, awake oriented x 3 HEENT: EOMI, Sclera non icteric, moist mucosa NECK: Supple, no JVD, trachea midline LUNGS: Diminished breath sounds bilaterally. No wheezes HEART: Regular rate and rhythm. Normal S1 and S2, without murmurs ABD: Abdomen soft, nontender. Bowel sounds present EXT: No clubbing cyanosis or edema NEURO: Alert and oriented to person, follows commands Vital Signs (last 8hr) Date Time Temp Pulse Resp B/P (MAP) Pulse Ox O2 Delivery O2 Flow Rate FiO2 08/30/25 12:06 75 20 08/30/25 11:09 98.2 78 19 133/66 93 Nasal Cannula 2.0 08/30/25 09:00 79 20 142/75 96 Nasal Cannula 3.0 08/30/25 08:00 97.9 77 20 139/73 95 Nasal Cannula 3.0 08/30/25 08:00 95 Nasal Cannula* 3 32 08/30/25 07:08 76 24 08/30/25 07:07 76 24 N/Cannula Low lpm 3.0 32 08/30/25 07:00 76 20 141/68 96 Nasal Cannula 3.0 08/30/25 06:30 82 10 94 08/30/25 06:15 88 16 128/62 08/30/25 05:45 83 16 139/64 95 08/30/25 05:30 83 18 97 08/30/25 05:15 84 16 138/69 95 LABS: Hematology Labs: Test 08/30/25 04:20 Range/Units White Blood Count 17.4 H 4.8-10.8 K/uL Red Blood Count 2.30 L 4.00-5.50 MIL/uL Hemoglobin 7.4 L 12.0-16.0 g/dL Hematocrit 21.5 L 36-48 % Mean Corpuscular Volume 93.5 79-99 fL Mean Corpuscular Hemoglobin 32.2 27.0-33.0 pg Mean Corpuscular Hemoglobin Concent 34.4 32.0-36.0 g/dL Red Cell Distribution Width 14.5 11.0-15.5 % Platelet Count 226 130-400 K/uL Mean Platelet Volume 10.8 H 7.5-10.5 fL Immature Granulocyte % (Auto) 1.1 H 0-1 % Neutrophils (%) (Auto) 75.4 40.0-77.0 % Lymphocytes (%) (Auto) 11.3 L 21.0-51.0 % Monocytes (%) (Auto) 11.9 3.0-13.0 % Eosinophils (%) (Auto) 0.1 0.0-8.0 % Basophils (%) (Auto) 0.2 0.0-5.0 % Neutrophils # (Auto) 13.2 H 1.8-7.7 K/uL Lymphocytes # (Auto) 2.0 1.0-4.8 K/uL Monocytes # (Auto) 2.1 H 0.1-1.0 K/uL Eosinophils # (Auto) 0.01 0.00-0.70 K/uL Basophils # (Auto) 0.03 0.00-0.20 K/uL Absolute Immature Granulocyte (auto 0.19 0-1 K/uL Nucleated Red Blood Cells 0.4 H 0.0-0.19 % Chemistry Labs: Test 08/30/25 11:49 08/30/25 04:20 08/29/25 00:44 Range/Units Whole Blood Glucose 215 H 70-110 MG/DL Sodium Level 132 L 136-145 mmol/L Potassium Level 3.9 3.5-5.1 mmol/L Chloride Level 98 L 101-111 mmol/L Carbon Dioxide Level 19 L 21-32 mmol/L Blood Urea Nitrogen 88 *H 7-18 mg/dL Creatinine 3.3 H 0.5-1.0 mg/dL Glomerular Filtration Rate Calc 13 >90 mL/min Random Glucose 150 H 70-105 mg/dL Total Calcium 8.1 L 8.5-10.1 mg/dL Phosphorus Level 5.1 H 2.5-4.9 mg/dL Magnesium Level 1.90 1.80-2.40 mg/dL Total Bilirubin 0.4 0.2-1.0 mg/dL Aspartate Amino Transf (AST/SGOT) 61 H 10-37 U/L Alanine Aminotransferase (ALT/SGPT) 18 # 12-78 U/L Alkaline Phosphatase 66 50-136 U/L Total Creatine Kinase 179 # 21-232 U/L B-Type Natriuretic Peptide 4400 H 0-100 pg/mL Total Protein 6.4 6.0-8.3 g/dL Albumin 2.2 L 3.5-5.0 g/dL Procalcitonin 1.66 H 0.05-0.5 ng/mL Troponin I High Sensitivity 33052 *H 4-50 ng/L DIAGNOSTICS / RADIOLOGY RESULTS: [ ] PLAN Plan: NEURO: Minimize central acting medications as possible. Fall Precautions. Well lighted room through the day and minimize interruptions through the night to prevent acute delirium. PULMONARY: Supplemental 02 as needed Titrate Fio2 to keep Spo2 > or = 90% DuoNebs and CPT as needed IS hourly while awake for pulmonary hygiene Out of bed to chair as tolerated CARDIOVASCULAR: Follow hemodynamics. Titrate vasopressor to keep MAP >65 or systolic blood pressure >95mmHg Drips: Heparin drip discontinued per Cardiology Nitroglycerin drip per protocol LINES: PIV GI & NUTRITION: Continue nutritional support Aspirations precautions Prokinetic agents and laxatives as needed KIDNEYS & ELECTROLYTES: Strict monitoring of intake and output Daily weights Avoid nephrotoxic agents Monitor electrolytes and replace as needed Goal urine output of 30mL/hr or 0.5mL/kg/hr Yeager catheter ENDOCRINE: Maintain blood glucose between 100-180 at all times. Insulin sliding scale for blood glucose management INFECTIOUS DISEASE: Trend temperature. Soto-culture if febrile. Micro: [ ] Respiratory culture Blood cultures urine culture Antibiotics: [ ] Cefepime flagyl Zyvox HEMATOLOGY & COAGULATION: Monitor H&H. Keep Hgb > 7 Transfuse 1 unit of PRBC for Hgb < 7 Transfuse 1 pack of platelets of platelets < 20, 000 Watch for any signs and symptoms of bleeding SKIN: Pressure ulcer prevention per facility protocol Rehab: PT/OT Prophylaxis: GI: Protonix DVT: scd Code Status: Full Resuscitation Disposition: [ icu] Case was discussed and seen with my supervising physician. The above plan was formulated and agreed upon. NANO FERGUSON PAC Aug 30, 2025 13:13
--- NOTE | 2025-08-30 13:40 | NUR ---
[facility] ICU Skin Assessment: Patient assessed by wound healing team. Patient up in chair. Per primary nurse, patient with no wounds or skin breakdown noted. Recommendations provided to primary nurse. Education provided. Addendum: 08/30/25 at 1545 by SHANNAN RUSS RN RN/ Amended: Links added.
--- NOTE | 2025-08-30 14:34 | HMCIMG ---
EXAM: CR Chest, 1 View. CLINICAL HISTORY: PP (Post-procedure). COMPARISON: Prior radiograph dated 29-08-2025. FINDINGS: LUNGS: Multifocal airspace opacities involving the right lung and left middle and lower zones, consistent with alveolar airspace disease. No new areas of consolidation identified. PLEURAL SPACES: Small right pleural effusion persists. No pneumothorax. MEDIASTINUM: Cardiomediastinal silhouette within normal limits. BONES: No acute osseous abnormality. IMPRESSION: 1. Multifocal airspace opacities involving the right lung and left middle and lower zones, consistent with alveolar airspace disease. No new areas of consolidation identified. 2. Persistent small right pleural effusion. No pneumothorax. 3. Cardiomediastinal silhouette within normal limits. 4. No acute osseous abnormality. /[place]
--- NOTE | 2025-08-30 16:26 | PN ---
INFECTIOUS DISEASE PROGRESS NOTE Date of Service: Aug 30, 2025 SUBJECTIVE: This is a 85-year-old female patient who was seen and examined at bedside in room 215. Patient is awake, alert and oriented x3. Patient is currently on oxygen via nasal cannula at 3 L/min. The BNP trended down to 4400 from greater than 5000 yesterday. No improvement on the renal function, BUN is 88 and creatinine is 3.3. Patient had a positive fecal occult blood stool, hemoglobin is 7.4. We will obtain GI consult for evaluation. Heparin drip has been discontinued and patient is currently on Imdur. Patient's final urine culture results came back positive for E coli. The nasal swab for MRSA was positive. We will continue current antibiotics cefepime, linezolid, doxycycline and metronidazole. We will continue to follow patient's care. PHYSICAL EXAM EYES: Anicteric. Pupils equal and reactive. HENT: No oral thrush seen, moist Oral mucosa. NECK: Supple, no JVD or thyromegaly. LUNGS: Diminished breath sounds. Oxygen support. CARDIOVASCULAR: S1, S2 regular. No murmur heard. ABDOMEN: Soft, non tender, bowel sounds present, no organomegaly. CENTRAL NERVOUS SYSTEM: Awake, alert, oriented x 3. SKIN: No rashes, no swelling. LYMPHATICS: No peripheral lymphadenopathy' MUSCULOSKELETAL: No joint swelling, erythema or tenderness. EXTREMITIES: No cyanosis or clubbing. Weakness to bilateral lower extremities. 1+ edema to lower extremities. BACK: No deformity, no pressure ulcer. GENITOURINARY: No dysuria or hematuria. Yeager catheter. Vital Sign (Last 12 Hours) 08/30/25 08/30/25 08/30/25 08/30/25 04:30 04:45 05:00 05:15 Pulse 79 84 82 84 Resp 18 17 19 16 B/P (MAP) 136/73 138/69 Pulse Ox 96 94 93 95 08/30/25 08/30/25 08/30/25 08/30/25 05:30 05:45 06:15 06:30 Pulse 83 83 88 82 Resp 18 16 16 10 B/P (MAP) 139/64 128/62 Pulse Ox 97 95 94 08/30/25 08/30/25 08/30/25 08/30/25 07:00 07:07 07:08 08:00 Pulse 76 76 76 Resp 20 24 24 B/P (MAP) 141/68 Pulse Ox 96 95 O2 Delivery Nasal Cannula N/Cannula Low lpm Nasal Cannula* O2 Flow Rate 3.0 3.0 3 FiO2 32 32 08/30/25 08/30/25 08/30/25 08/30/25 08:00 09:00 11:09 12:06 Temp 97.9 98.2 Pulse 77 79 78 75 Resp 20 20 19 20 B/P (MAP) 139/73 142/75 133/66 Pulse Ox 95 96 93 O2 Delivery Nasal Cannula Nasal Cannula Nasal Cannula O2 Flow Rate 3.0 3.0 2.0 08/30/25 08/30/25 14:31 15:45 Temp 98.4 Pulse 77 69 Resp 19 20 B/P (MAP) 118/65 115/48 Pulse Ox 93 92 O2 Delivery Room Air Room Air Intake & Output (last 24hrs) 08/29/25 08/29/25 08/30/25 15:00 23:00 07:00 Intake Total 590.0 ml 500.0 ml 250.0 ml Output Total 450 ml 450 ml Balance 590.0 ml 50.0 ml -200.0 ml LABS: Laboratory: Test 08/30/25 16:03 08/30/25 10:50 08/30/25 04:20 08/29/25 00:44 Range/Units Whole Blood Glucose 172 H 70-110 MG/DL Stool Occult Blood POSITIVE H NEGATIVE White Blood Count 17.4 H 4.8-10.8 K/uL Red Blood Count 2.30 L 4.00-5.50 MIL/uL Hemoglobin 7.4 L 12.0-16.0 g/dL Hematocrit 21.5 L 36-48 % Mean Corpuscular Volume 93.5 79-99 fL Mean Corpuscular Hemoglobin 32.2 27.0-33.0 pg Mean Corpuscular Hemoglobin Concent 34.4 32.0-36.0 g/dL Red Cell Distribution Width 14.5 11.0-15.5 % Platelet Count 226 130-400 K/uL Mean Platelet Volume 10.8 H 7.5-10.5 fL Immature Granulocyte % (Auto) 1.1 H 0-1 % Neutrophils (%) (Auto) 75.4 40.0-77.0 % Lymphocytes (%) (Auto) 11.3 L 21.0-51.0 % Monocytes (%) (Auto) 11.9 3.0-13.0 % Eosinophils (%) (Auto) 0.1 0.0-8.0 % Basophils (%) (Auto) 0.2 0.0-5.0 % Neutrophils # (Auto) 13.2 H 1.8-7.7 K/uL Lymphocytes # (Auto) 2.0 1.0-4.8 K/uL Monocytes # (Auto) 2.1 H 0.1-1.0 K/uL Eosinophils # (Auto) 0.01 0.00-0.70 K/uL Basophils # (Auto) 0.03 0.00-0.20 K/uL Absolute Immature Granulocyte (auto 0.19 0-1 K/uL Nucleated Red Blood Cells 0.4 H 0.0-0.19 % Sodium Level 132 L 136-145 mmol/L Potassium Level 3.9 3.5-5.1 mmol/L Chloride Level 98 L 101-111 mmol/L Carbon Dioxide Level 19 L 21-32 mmol/L Blood Urea Nitrogen 88 *H 7-18 mg/dL Creatinine 3.3 H 0.5-1.0 mg/dL Glomerular Filtration Rate Calc 13 >90 mL/min Random Glucose 150 H 70-105 mg/dL Total Calcium 8.1 L 8.5-10.1 mg/dL Phosphorus Level 5.1 H 2.5-4.9 mg/dL Magnesium Level 1.90 1.80-2.40 mg/dL Total Bilirubin 0.4 0.2-1.0 mg/dL Aspartate Amino Transf (AST/SGOT) 61 H 10-37 U/L Alanine Aminotransferase (ALT/SGPT) 18 # 12-78 U/L Alkaline Phosphatase 66 50-136 U/L Total Creatine Kinase 179 # 21-232 U/L B-Type Natriuretic Peptide 4400 H 0-100 pg/mL Total Protein 6.4 6.0-8.3 g/dL Albumin 2.2 L 3.5-5.0 g/dL Vitamin D 25-Hydroxy 44.6 30.0-100.0 ng/mL Procalcitonin 1.66 H 0.05-0.5 ng/mL Troponin I High Sensitivity 03405 *H 4-50 ng/L DIAGNOSTICS / RADIOLOGY: PATIENT: HUSSAIN STRONG ACCT: [id number] LOC: 2CH U: [id number] AGE/SX: 85/F ROOM: 215 RE08/28/[address]: BLAISE GARCIA MD : 1940 BED: 1 DIS: STATUS: ADM IN TLOC: SPEC: [id number] TERI: 08/28/25 STATUS: COMP REQ: [id number] RECD: 08/29/[address] [facility] [address]: SUSIE SALINAS MD [place] [facility] [place]: CHANCE MEDINA SPDESC: CLEAN CAT ORDERED: AERO ID & SENS Procedure Result Anastacio Date-Time AEROBIC ID & SENSITIVITIES Final 08/30/25 MRL COLONY DESCRIPTION: DAY 1: COLONY COUNT: 20,000 - 50,000 CFU/ML GRAM NEGATIVE RODS IDENTIFICATION AND SENSITIVITY TO FOLLOW ESCHERICHIA COLI E COLI M.I.C. RX --------- ---- AMPICILLIN <=8 S AZTREONAM <=4 S CEFAZOLIN <=2 S CEFTAZIDIME/AVIBACTAM <=8 S GENTAMICIN <=2 S LEVOFLOXACIN <=0.5 S NITROFURANTOIN <=32 S MEROPENEM <=1 S PIPERACILLIN/TAZOBACTAM <=8 S TRIMETHOPRIM/SUFLAMETHOXAZOLE <=2/38 S ASSESSMENT: Urinary tract infection with E coli. Acute hypoxic respiratory failure requiring oxygen support. Non-STEMI. Sepsis. Nasal swab positive for MRSA. Heart failure. Acute on chronic renal failure. Leukocytosis. Multifocal pneumonia. Rhabdomyolysis. Anemia with positive fecal occult blood. Diabetes mellitus. PLAN: Continue cefepime, linezolid, doxycycline and metronidazole as currently ordered. Obtain consult with GI. Cardiology following patient. Continue Critical Care support. Continue oxygen support. Continue diuretics. Continue antidiabetics. This case was reviewed and discussed with my supervising physician Dr. Garcia and the above assessment and plan was formulated and agreed upon. ATTESTATION BY PHYSICIAN I have seen and examined the patient. I reviewed the documentation, medical decision making, and treatment plan as noted by the mid-level provider above. I agree with the findings and plan of care. BLAISE GARCIA MD, [facility]TA [facility] Aug 30, 2025 16:26
--- NOTE | 2025-08-30 22:18 | CONS ---
GASTROENTEROLOGY CONSULTATION REASON FOR CONSULTATION: Hemoccult positive stool and acute anemia. HISTORY OF PRESENT ILLNESS: The patient is an 85-year-old female with a history of hypertension, diabetes mellitus, obesity, hyperlipidemia, Perez's esophagus and heart failure who was admitted with shortness of air, wheezing and chest pain and was found to have a non-STEMI and respiratory failure with pneumonia, and who now has hemoccult positive stool and acute anemia for which GI evaluation management is sought. According to the patient, she has no abdominal pain, nausea, vomiting, melena, hematochezia, diarrhea or constipation. She has been having black stool, but thought this was due to iron therapy. She was noted to be Hemoccult positive. She denies history of PUD. The patient denies any family history of colon cancer, stomach cancer, esophageal disorder or IBD. ALLERGIES: No known drug allergies. PAST MEDICAL AND PAST SURGICAL HISTORY: See above. Also, a history of hyperlipidemia, hypertension, diabetes mellitus, heart failure, chronic kidney disease, Perez's esophagus, and now NSTEMI and pneumonia. The patient has no documented history of CAD, MS, CVA, seizure disorder, PUD or asthma. MEDICATIONS: Furosemide, pantoprazole, clopidogrel, ondansetron, metoprolol, cefepime, atorvastatin, isosorbide mononitrate, morphine, linezolid, nitroglycerin, ipratropium bromide, aspirin, doxycycline, magnesium sulfate, metronidazole, insulin. SOCIAL HISTORY: No alcohol use, tobacco use, or illicit drug use. FAMILY HISTORY: Significant for paternal aunt with breast cancer, sister had CAD and MS, and father also had CAD and MS. Her daughter of renal failure at 45 years old and her son also had renal failure at 42 years old. There is no family history of colon cancer, stomach cancer, esophageal disorders or IBD. REVIEW OF SYSTEMS: CONSTITUTIONAL: The patient reports shortness of air, wheezing and chest pain has improved since hospitalization. She denies fevers or chills. OPHTHALMOLOGY: No recent vision change, eye pain, periorbital swelling, redness, or drainage. ENT: No ear pain, tinnitus, hearing loss, nasal congestion, rhinorrhea, sore throat, or voice changes. RESPIRATORY: Shortness of air and wheeze have improved. She denies any cough or expectoration of mucus. She denies nasal congestion, rhinorrhea, sore throat, or voice changes. CARDIOVASCULAR: No chest pain now. Chest pain, on presentation to hospital, has subsided. She denies any leg swelling or neck pain. GENITOURINARY: No dysuria, hematuria, urinary urgency or frequency. GASTROINTESTINAL: The patient reports possible melena, but no abdominal pain, nausea, vomiting, constipation or diarrhea. MUSCULOSKELETAL: She denies any joint pain or swelling. She is nonambulatory and is actually wheelchair bound. NEUROLOGY: She denies tingling, numbness, vision changes, or hearing loss. She is nonambulatory. ENDOCRINOLOGY: She has a history of diabetes mellitus, hyperlipidemia, but no documented thyroid disease. HEMATOLOGY/LYMPHATICS: The patient reports possible melena, but no swollen, tender or palpable lymph nodes and she denies easy bruising. PHYSICAL EXAMINATION: GENERAL: The patient is an 85-year-old female with high body mass index, seen resting in bed, in no acute respiratory distress. VITAL SIGNS: Blood pressure 115/48, heart rate 69, respirations 20, temperature 98.4 degrees Fahrenheit. SKIN: Warm and dry with few ecchymotic areas over bilateral forearm and hands. HEENT: The patient's head was normocephalic, atraumatic. Pupils reactive. Sclerae are anicteric. Oral mucosa was moist. No obvious lesions. No blood noted. Nasal mucosa showed no epistaxis, septal deviation, or perforation. NECK: No obvious masses. No jugular venous distention. No lymphadenopathy. No thyromegaly. LUNGS: Decreased breath sounds bilaterally. HEART: S1, S2. No obvious murmurs, rubs, or gallops auscultated. ABDOMEN: Obese, soft with active bowel sounds. No hepatomegaly. No masses. Tenderness noted in the epigastrium with no rebound or guarding. EXTREMITIES: No cyanosis, clubbing or edema. RECTAL: Deferred. NEUROLOGICAL: The patient is awake, alert. Light touch, pain and temperature grossly intact bilaterally. LABORATORY DATA: WBC now 17.4, hemoglobin 7.4, hematocrit 21.5, MCV of 93.5, platelet count of 226. PT was 12.1 two days ago, INR 1.16, APTT of 139. Serum chemistries revealed a sodium of 132, potassium 3.9, chloride of 98, CO2 of 119, BUN of 88, creatinine of 3.3, GFR of 13, random glucose of 150, total calcium of 8.1, phosphorus of 5.1, magnesium of 1.9, total bilirubin of 0.4. AST 61, ALT 18, alkaline phosphatase of 66, total creatinine kinase of , beta-type natriuretic peptide 4400. Total protein at 6.4, albumin of 2.2, procalcitonin 1.66, troponin I high sensitivity one day ago was 46,322 and two days ago 74,169, and CPK then was 945. DIAGNOSTIC DATA: Urinalysis done two days ago showed light yellow clear urine, pH of 5.5, specific gravity 1.013, protein of 200, glucose of 200, ketone negative, small occult blood noted, negative nitrites, bilirubin was also negative, urobilinogen 0.2, leukocyte esterase 25, RBC 2-5, WBC 6-10, squamous epithelial cells rare, many bacteria are noted and hyaline casts 2-5. Stool was Hemoccult positive earlier today. Influenza type A and B antigens were negative. SARS-CoV-2 antigen rapid testing was presumptive negative and group A strep was negative. A CT of the chest, abdomen, and pelvis done two days ago showed moderate bilateral pleural effusions with partial collapse and consolidation of both lower lobes. Patchy ground-glass opacity in the mid to upper lung marley bilaterally, right greater than left; may be due to infection or edema. Fibro atelectatic bands in both lower lobes and lingula, atherosclerosis and coronary artery disease noted. Prolapsed urinary bladder due to Yeager catheter noted. Bladder wall thickening which may be due to under distention or cystitis. No urinary calculi. No hydronephrosis. No bowel obstruction or inflammation noted, or constipation noted. The liver, spleen, pancreas, and adrenal glands were within normal limits. Gallbladder was surgically absent. Chest x-ray done earlier today shows multifocal airspace opacities involving the right lung and left middle and lower zones consistent with alveolar airspace disease. No new areas of consolidation identified. Persistent small right pleural effusion with no pneumothorax noted. Cardiomediastinal silhouette was within normal limits. No acute osseous abnormality noted. IMPRESSION: * Hemoccult positive stool. * Acute anemia. * [id number] myocardial infarction. * Pneumonia. * Hypertension. * Diabetes mellitus. * Morbid obesity. * Hyperlipidemia. * Heart failure. * Wheelchair bound. PLAN: * Continue Protonix therapy. * I recommend EGD, but this will be done when the patient's respiratory status improves. At the moment, she desaturates easily off nasal cannula and on exertion. * Continue to optimize cardiovascular, renal and pulmonary status. * Continue to monitor CBC and transfuse PRBC as needed to hemoglobin of 7. * Recommend colonoscopy if EGD is unrevealing. Again, any endoscopic intervention will be done after cardiac and pulmonary clearance/after the patient improves her cardiorespiratory status. * We will continue monitoring as noted above. Dr. Garcia, thank you for allowing me to participate in the care of this patient. TID: [id number] RECEIPT: [id number] cc: BLAISE GARCIA MD(User)
[2025-08-31] VITALS (15 sets, daily range): BP systolic 125–144; BP diastolic 53–88; PULSE 59–86; RESP 14–20; TEMP 98–98.6; O2SAT 94–100
[2025-08-31 04:58] LABS: IMMATURE GRANULOCYTE ABSOLUTE 0.20 K/uL (0-1); NUCLEATED RED BLOOD CELLS 0.6 % (0.0-0.19); PLATELET COUNT (AUTO) 258 K/uL (130-400); RED BLOOD CELL COUNT(AUTO) 2.52 MIL/uL (4.00-5.50); RED CELL DISTRIBUTION WIDTH 14.4 % (11.0-15.5); WHITE BLOOD COUNT (AUTO) 18.6 K/uL (4.8-10.8)
[2025-08-31 05:21] LABS: ASPARTATE AMINOTRANSFERASE 37.0 U/L (10-37); CREATININE 3.6 mg/dL (0.5-1.0); GLOMERULAR FILTR. RATE CALC 12.0 mL/min (>90); GLUCOSE,RANDOM 132.0 mg/dL (70-105); SODIUM SERUM 133.0 mmol/L (136-145); TOTAL PROTEIN, SERUM 6.1 g/dL (6.0-8.3)
[2025-08-31 05:23] LABS: UREA NITROGEN, BLOOD 96.0 mg/dL (7-18)
--- NOTE | 2025-08-31 08:14 | PN ---
[facility] CARDIOLOGY PROGRESS NOTE Date Patient Seen: Aug 31, 2025 Time of Visit: 08:13 Interval History: [Cr up to 3.6, CXR with worsening right sided opacities ] Physical Examination: GENERAL: [No acute distress.] HEAD: [Normal with no signs of head trauma.] EYES: [PERRLA, EOMI, conjunctiva and sclera normal.] ENT: [Hearing grossly intact, normal oropharynx.] NECK: [Supple without JVD. There is no tenderness, lymphadenopathy, or masses. No thyromegaly. Normal carotid upstrokes without bruits.] LUNGS: [Clear breath sounds bilaterally. There are right basilar rales one third of the way up the chest. No wheezes, or rhonchi.] HEART: [Normal rate and rhythm. Normal S1 and S2 without mumurs, gallop or rub.] VASC: [Peripheral pulses +2 bilaterally.] ABD: [Bowel sounds normal, soft, nontender, no masses, no organomegaly. No audible bruits.] : [Not examined] LYMPH: [No lymphadenopathy noted.] EXT: [No clubbing, cyanosis or edema.] SKIN: [No rashes or lesions noted.] NEURO: [Awake, alert, and oriented x3. No focal sensory or strength deficits noted.] Laboratory: [ ] Hematology Labs: Test 08/31/25 04:02 Range/Units White Blood Count 18.6 H 4.8-10.8 K/uL Red Blood Count 2.52 L 4.00-5.50 MIL/uL Hemoglobin 8.0 L 12.0-16.0 g/dL Hematocrit 24.0 L 36-48 % Mean Corpuscular Volume 95.2 79-99 fL Mean Corpuscular Hemoglobin 31.7 27.0-33.0 pg Mean Corpuscular Hemoglobin Concent 33.3 32.0-36.0 g/dL Red Cell Distribution Width 14.4 11.0-15.5 % Platelet Count 258 130-400 K/uL Mean Platelet Volume 11.1 H 7.5-10.5 fL Immature Granulocyte % (Auto) 1.1 H 0-1 % Neutrophils (%) (Auto) 75.2 40.0-77.0 % Lymphocytes (%) (Auto) 12.0 L 21.0-51.0 % Monocytes (%) (Auto) 10.7 3.0-13.0 % Eosinophils (%) (Auto) 0.8 0.0-8.0 % Basophils (%) (Auto) 0.2 0.0-5.0 % Neutrophils # (Auto) 14.0 H 1.8-7.7 K/uL Lymphocytes # (Auto) 2.2 1.0-4.8 K/uL Monocytes # (Auto) 2.0 H 0.1-1.0 K/uL Eosinophils # (Auto) 0.14 0.00-0.70 K/uL Basophils # (Auto) 0.03 0.00-0.20 K/uL Absolute Immature Granulocyte (auto 0.20 0-1 K/uL Nucleated Red Blood Cells 0.6 H 0.0-0.19 % Chemistry Labs: Test 08/31/25 04:02 08/30/25 20:10 08/30/25 04:20 Range/Units Sodium Level 133 L 136-145 mmol/L Potassium Level 3.6 3.5-5.1 mmol/L Chloride Level 97 L 101-111 mmol/L Carbon Dioxide Level 18 L 21-32 mmol/L Blood Urea Nitrogen 96 *H 7-18 mg/dL Creatinine 3.6 H 0.5-1.0 mg/dL Glomerular Filtration Rate Calc 12 >90 mL/min Random Glucose 132 H 70-105 mg/dL Total Calcium 7.9 L 8.5-10.1 mg/dL Magnesium Level 1.70 L 1.80-2.40 mg/dL Total Bilirubin 0.3 # 0.2-1.0 mg/dL Aspartate Amino Transf (AST/SGOT) 37 10-37 U/L Alanine Aminotransferase (ALT/SGPT) 15 12-78 U/L Alkaline Phosphatase 61 50-136 U/L B-Type Natriuretic Peptide 4200 H 0-100 pg/mL Total Protein 6.1 6.0-8.3 g/dL Albumin 2.0 L 3.5-5.0 g/dL Whole Blood Glucose 208 H 70-110 MG/DL Phosphorus Level 5.1 H 2.5-4.9 mg/dL Total Creatine Kinase 179 # 21-232 U/L Vitamin D 25-Hydroxy 44.6 30.0-100.0 ng/mL Procalcitonin 1.66 H 0.05-0.5 ng/mL Diagnostics / Radiology: [Copy/Paste Echos/Imaging Report here] Impression and Plan: [1. Sepsis with lactic acid level of 5.8 2. Bilateral pneumonia 3. Non ST-elevation myocardial infarction type 4. CAD with a chronic occlusion of the LAD filling via collaterals January 2016 unstable angina history 5. Hypertension 6. Dyslipidemia 7. Diabetes mellitus type 2 8. Hypothyroidism 9. Right carotid bruit with normal carotid Doppler exam 2016 10. Normocytic anemia 11. Acute on chronic kidney disease with a GFR of 15 on admission 12. Advanced age 13. DNR status 14. Grade II diastolic dysfunction 15. Severe systolic heart failure LVEF 25-30% #[place] [id number]. Electrocardiogram showed no acute ST changes. the patient continues on aspirin, clopidogrel, metoprolol tartrate 25 mg q.8 hours. The patient denies any chest pain. -imdur 30 mg qd -2D echo with grade II diastolic dysfunction and severe systolic heart failure with LVEF 25-30% -Plans are for conservative management. #Severe systolic heart failure -Cr uptrending to 3.6 -Urine output reduced -Lasix 40 mg IV bid #KOSTA on CKD -consult nephrology to assist with diuretic dosing Maria D Miranda MD ] MARIA D MIRANDA MD Aug 31, 2025 08:14
--- NOTE | 2025-08-31 09:19 | PN ---
NEPHROLOGY FOLLOWUP NOTE INTERVAL HISTORY: The patient was evaluated this morning. No family present. Complains of weakness, fatigue, continues on supplemental oxygen, does desat easily. Urine output recorded as 1290 mL. Diuretics increase adjusted to 40 IV every 12. PHYSICAL EXAMINATION: CURRENT VITAL SIGNS: Temp 98.1, pulse 86, blood pressure 142/53, respiratory rate is 16, satting currently 100% on 2 L nasal cannula. GENERAL: The patient is awake. She is alert, answering questions appropriately. On supplemental oxygen, appears tachypneic. CARDIAC: Regular rhythm and rate. CHEST: Coarse breath sounds anteriorly. Rhonchi. ABDOMEN: Soft, nontender. EXTREMITIES: No edema. LABORATORY DATA: Sodium 133, potassium 3.6, chloride 97, bicarbonate 18, BUN is 96, creatinine is up to 3.6, calcium is 7.9, magnesium is 1.7, albumin 2. BNP is 4200. White count is 18.6, hemoglobin 8, hematocrit 24, platelet count is 258. ASSESSMENT: * Acute on chronic kidney injury. * Underlying chronic kidney disease stage 3. * Hyponatremia. * Acute on chronic systolic heart failure. * Multifocal pneumonia. * Urinary tract infection. * Sepsis. * Acute hypoxic respiratory failure. * Non-ST elevation myocardial infarction. * Rhabdomyolysis. * Leukocytosis. * Anemia. * Fecal occult positive stool. * Type 2 diabetes. * Hypertension. * Sepsis. PLAN: * [id number] kidney injury, continued decline in renal clearance. The patient did respond, however, to adjustment of diuretics with 1.2 L reported urine output overnight. BUN elevated out of proportion to creatinine, although also with fecal occult positive stools. Gastroenterology has been consulted. At this time, we will continue with diuresis, although given concern for overdiuresis, may need to hold. We will trend lab studies, trend output, avoid nephrotoxins, renal dose on medications, continue with treatment of acute issues including underlying sepsis, infection. The patient is DNR and will continue with supportive care. * Hyponatremia: We will trend lab studies in the setting of aggressive diuresis. * Acute on chronic systolic dysfunction. The patient is currently on diuretics. May need to hold given continued decline in renal clearance, although with increase in output overnight. Plan for another 24 hours and may consider holding. Cardiology following. * Multifocal pneumonia, renal dose antibiotics. * Sepsis. The patient currently hemodynamically stable. TID: [id number] RECEIPT: [id number]
--- NOTE | 2025-08-31 10:25 | NUR ---
PATIENT ARRIVED TO UNIT. VS: 141/67, 99% SP02 ON 2L NC, 75 BPM AND 98.2 TEMP. PATIENT WITH FAMILY ON BEDSIDE. TELEMETRY #19 PLACED. PATIENT IS COMFORTABLE AND NO COMPLAINTS OF PAIN OR DISTRESS. CALL LIGHT WITHIN REACH. BED LOW AND LOCKED. PATIENT WAS EDUCATED ON CALLING NURSE IF SHE NEEDED ASSISTANCE. PT VERBALIZED UNDERSTANDING.
--- NOTE | 2025-08-31 10:47 | PN ---
[facility] PROGRESS NOTE Date Patient Seen: Aug 31, 2025 Time of Visit: 10:44 Supervising Physician: Dr Griffin Tellez Primary Care Physician: CHANCE LAWS MD ATTENDING PHYSICIAN: DR JOSE WELSH Outpatient Specialists: [ ] Inpatient Consults: CCM - BIS, CARDIOLOGY - DR BHATTI PROBLEM LIST: NSTEMI II Acute hypoxemic respiratory failure Suspected healthcare associated pneumoniae Acute complicated cystitis POA Acute on chronic CKD CAD, chronic total occlusion of the LAD Normocytic normochromic anemia Hypertension Hyperlipidemia Hyperglycemia in the presence of Type 2 diabetes mellitus Hypothyroidism INTERVAL HISTORY: Patient is a kd little lady sitting in comfortably in bed, multiple family members at bedside All labs and imaging have been reviewed Discussion with patient and her family at bedside. She is now downgraded to PCCU. Nursing reports no acute events overnight. She is afebrile Vital signs have remained stable Patient continues on Lasix, was able to diurese a little over 700 overnight Patient was seen and examined, all labs and imaging have been reviewed, patient's is sitting out of bed to the chair, comfortable, no complaints, no family at bedside Nursing reports no acute events overnight Afebrile Continues on aspirin Plavix, statin She continues on Zyvox for UTI positive for E coli and cultures GI prophylaxis Protonix Plan: Following cardiology recs, diuresis Follow her I&Os Follow nephrology recs Antibiotics, following cultures Downgrade ICU we will sign off, thank you for allowing us to participate in the care of your patient Total care time 42 minutes, time excludes any procedures or educational time. REVIEW OF SYSTEMS: Const: no fever, fatigue, or weight changes Eyes: no recent vision problems ENT: No congestion, ear pain, or sore throat C/V: + chest pain, palpitations, shortness for breath Resp:+ shortness of the breath GI: No abdominal pain, nausea, vomiting, constipation, or diarrhea : No incontinence of or dyuria M/S: No joint or pain swelling Skin: No rash Neuro: no headache, focal numbness, or weakness, dizziness or seizures Psych: no depression or anxiety Heme: no abnormal bruising or bleeding Lymph: no swollen glands PHYSICAL EXAM: GENERAL: alert, weak, awake oriented x 3 HEENT: EOMI, Sclera non icteric, moist mucosa NECK: Supple, no JVD, trachea midline LUNGS: Diminished breath sounds bilaterally. No wheezes HEART: Regular rate and rhythm. Normal S1 and S2, without murmurs ABD: Abdomen soft, nontender. Bowel sounds present EXT: No clubbing cyanosis or edema NEURO: Alert and oriented to person, follows commands Vital Signs (last 8hr) Date Time Temp Pulse Resp B/P (MAP) Pulse Ox O2 Delivery O2 Flow Rate FiO2 08/31/25 08:15 97 Nasal Cannula* 1 24 08/31/25 07:30 98.6 78 15 144/72 97 Nasal Cannula 08/31/25 07:16 86 20 08/31/25 07:15 86 20 N/Cannula Low lpm 2.0 28 08/31/25 04:00 98.1 86 16 142/53 100 Nasal Cannula 2.0 LABS: Hematology Labs: Test 08/31/25 04:02 Range/Units White Blood Count 18.6 H 4.8-10.8 K/uL Red Blood Count 2.52 L 4.00-5.50 MIL/uL Hemoglobin 8.0 L 12.0-16.0 g/dL Hematocrit 24.0 L 36-48 % Mean Corpuscular Volume 95.2 79-99 fL Mean Corpuscular Hemoglobin 31.7 27.0-33.0 pg Mean Corpuscular Hemoglobin Concent 33.3 32.0-36.0 g/dL Red Cell Distribution Width 14.4 11.0-15.5 % Platelet Count 258 130-400 K/uL Mean Platelet Volume 11.1 H 7.5-10.5 fL Immature Granulocyte % (Auto) 1.1 H 0-1 % Neutrophils (%) (Auto) 75.2 40.0-77.0 % Lymphocytes (%) (Auto) 12.0 L 21.0-51.0 % Monocytes (%) (Auto) 10.7 3.0-13.0 % Eosinophils (%) (Auto) 0.8 0.0-8.0 % Basophils (%) (Auto) 0.2 0.0-5.0 % Neutrophils # (Auto) 14.0 H 1.8-7.7 K/uL Lymphocytes # (Auto) 2.2 1.0-4.8 K/uL Monocytes # (Auto) 2.0 H 0.1-1.0 K/uL Eosinophils # (Auto) 0.14 0.00-0.70 K/uL Basophils # (Auto) 0.03 0.00-0.20 K/uL Absolute Immature Granulocyte (auto 0.20 0-1 K/uL Nucleated Red Blood Cells 0.6 H 0.0-0.19 % Chemistry Labs: Test 08/31/25 04:02 08/30/25 20:10 08/30/25 04:20 Range/Units Sodium Level 133 L 136-145 mmol/L Potassium Level 3.6 3.5-5.1 mmol/L Chloride Level 97 L 101-111 mmol/L Carbon Dioxide Level 18 L 21-32 mmol/L Blood Urea Nitrogen 96 *H 7-18 mg/dL Creatinine 3.6 H 0.5-1.0 mg/dL Glomerular Filtration Rate Calc 12 >90 mL/min Random Glucose 132 H 70-105 mg/dL Total Calcium 7.9 L 8.5-10.1 mg/dL Magnesium Level 1.70 L 1.80-2.40 mg/dL Total Bilirubin 0.3 # 0.2-1.0 mg/dL Aspartate Amino Transf (AST/SGOT) 37 10-37 U/L Alanine Aminotransferase (ALT/SGPT) 15 12-78 U/L Alkaline Phosphatase 61 50-136 U/L B-Type Natriuretic Peptide 4200 H 0-100 pg/mL Total Protein 6.1 6.0-8.3 g/dL Albumin 2.0 L 3.5-5.0 g/dL Whole Blood Glucose 208 H 70-110 MG/DL Phosphorus Level 5.1 H 2.5-4.9 mg/dL Total Creatine Kinase 179 # 21-232 U/L Vitamin D 25-Hydroxy 44.6 30.0-100.0 ng/mL Procalcitonin 1.66 H 0.05-0.5 ng/mL DIAGNOSTICS / RADIOLOGY RESULTS: [ ] PLAN NEURO: Minimize central acting medications as possible. Maintain fall precautions, adequate lighting during the day PULMONARY: Supplemental 02 as needed. Maintain aspiration precautions at all times CARDIOVASCULAR: Follow hemodynamics. Vital signs per facility protocol GI & NUTRITION: Continue with nutritional support. Continue stool softeners and laxatives as needed. KIDNEYS & ELECTROLYTES: Strict monitoring of intake, output and overall fluid balance. Avoid nephrotoxic medications to the extent possible. Medications to be dosed according to renal function. Monitor electrolytes and replace as needed ENDOCRINE: Maintain blood glucose between 100-180 at all times. Hypoglycemia protocol in place INFECTIOUS DISEASE: Trend temperature, WBC and procalcitonin level Follow cultures, deescalate antibiotics as soon as possible. Panculture if new onset fever ONCOLOGY/HEMATOLOGY/COAGULATION: Monitor for s/s of bleeding Monitor hemoglobin, coagulation studies as needed SKIN: Pressure ulcer prevention per facility protocol Specialty mattress ORTHO/REHAB: Continue PT/OT Prophylaxis: Continue GI and DVT prophylaxis Code Status: Full Resuscitation Disposition: NANO CASTELLANOS PAC Aug 31, 2025 10:47
--- NOTE | 2025-08-31 15:39 | HMCIMG ---
EXAM: CR Chest, 1 View CLINICAL HISTORY: PP (Post-procedure). COMPARISON: Prior radiograph dated 30-08-2025. FINDINGS: LUNGS: Multifocal airspace opacities are noted involving the right lung and left middle and lower zones, consistent with alveolar airspace disease. No new consolidation or collapse identified. PLEURAL SPACES: Small right pleural effusion persists. No pneumothorax detected. MEDIASTINUM: Cardiomediastinal silhouette is within normal limits. No widening or shift. BONES: Visualized bony structures are intact. No acute osseous abnormality seen.IMPRESSION: 1. Multifocal airspace opacities involving the right lung and left middle and lower zones, consistent with alveolar airspace disease. No new consolidation or collapse identified. 2. Small right pleural effusion persists. 3. No pneumothorax detected. 4. Cardiomediastinal silhouette within normal limits. 5. No acute osseous abnormality seen in visualized bony structures. /[place]
--- NOTE | 2025-08-31 18:51 | PN ---
INFECTIOUS DISEASE PROGRESS NOTE Date of Service: Aug 31, 2025 SUBJECTIVE: Patient is afebrile, temperature is 98.6. WBC still elevated at 18.6 but patient continues on Solu-Medrol. Renal function continues to decline with a BUN is 96 and creatinine of 3.6. No reports of nausea or vomiting. Very minimal improvement on the BNP down to 4200 today. Patient is currently on oxygen via nasal cannula at 2 L/min. GI has evaluated patient and planning EGD once the respiratory status improved. Will continue on cefepime, linezolid, doxycycline and metronidazole. PHYSICAL EXAM EYES: Anicteric. Pupils equal and reactive. HENT: No oral thrush seen, moist Oral mucosa. NECK: Supple, no JVD or thyromegaly. LUNGS: Diminished breath sounds. Oxygen support. CARDIOVASCULAR: S1, S2 regular. No murmur heard. ABDOMEN: Soft, non tender, bowel sounds present, no organomegaly. CENTRAL NERVOUS SYSTEM: Awake, alert, oriented x 3. SKIN: No rashes, no swelling. LYMPHATICS: No peripheral lymphadenopathy' MUSCULOSKELETAL: No joint swelling, erythema or tenderness. EXTREMITIES: No cyanosis or clubbing. Weakness to bilateral lower extremities. 1+ edema to lower extremities. BACK: No deformity, no pressure ulcer. GENITOURINARY: No dysuria or hematuria. Yeager catheter. Vital Sign (Last 12 Hours) 08/31/25 08/31/25 08/31/25 08/31/25 07:15 07:16 07:30 08:15 Temp 98.6 Pulse 86 86 78 Resp 20 20 15 B/P (MAP) 144/72 Pulse Ox 97 97 O2 Delivery N/Cannula Low lpm Nasal Cannula Nasal Cannula* O2 Flow Rate 2.0 1 FiO2 28 24 08/31/25 08/31/25 08/31/25 08/31/25 11:11 11:27 11:27 12:00 Temp 98.2 Pulse 75 75 75 Resp 18 18 18 B/P (MAP) 141/67 O2 Delivery Nasal Cannula* N/Cannula Low lpm Nasal Cannula O2 Flow Rate 2 2.0 2.0 FiO2 28 28 08/31/25 08/31/25 18:38 18:39 Pulse 77 77 Resp 18 18 O2 Delivery N/Cannula Low lpm O2 Flow Rate 2.0 FiO2 28 Intake & Output (last 24hrs) 1008/30/25 08/31/25 15:00 23:00 07:00 Intake Total 150.0 ml 1055.0 ml 18.0 ml Output Total 440 ml 150 ml 700 ml Balance -290.0 ml 905.0 ml -682.0 ml LABS: Laboratory: Test 08/31/25 15:59 08/31/25 04:02 08/30/25 10:50 08/30/25 04:20 Range/Units Whole Blood Glucose 198 H 70-110 MG/DL White Blood Count 18.6 H 4.8-10.8 K/uL Red Blood Count 2.52 L 4.00-5.50 MIL/uL Hemoglobin 8.0 L 12.0-16.0 g/dL Hematocrit 24.0 L 36-48 % Mean Corpuscular Volume 95.2 79-99 fL Mean Corpuscular Hemoglobin 31.7 27.0-33.0 pg Mean Corpuscular Hemoglobin Concent 33.3 32.0-36.0 g/dL Red Cell Distribution Width 14.4 11.0-15.5 % Platelet Count 258 130-400 K/uL Mean Platelet Volume 11.1 H 7.5-10.5 fL Immature Granulocyte % (Auto) 1.1 H 0-1 % Neutrophils (%) (Auto) 75.2 40.0-77.0 % Lymphocytes (%) (Auto) 12.0 L 21.0-51.0 % Monocytes (%) (Auto) 10.7 3.0-13.0 % Eosinophils (%) (Auto) 0.8 0.0-8.0 % Basophils (%) (Auto) 0.2 0.0-5.0 % Neutrophils # (Auto) 14.0 H 1.8-7.7 K/uL Lymphocytes # (Auto) 2.2 1.0-4.8 K/uL Monocytes # (Auto) 2.0 H 0.1-1.0 K/uL Eosinophils # (Auto) 0.14 0.00-0.70 K/uL Basophils # (Auto) 0.03 0.00-0.20 K/uL Absolute Immature Granulocyte (auto 0.20 0-1 K/uL Nucleated Red Blood Cells 0.6 H 0.0-0.19 % Sodium Level 133 L 136-145 mmol/L Potassium Level 3.6 3.5-5.1 mmol/L Chloride Level 97 L 101-111 mmol/L Carbon Dioxide Level 18 L 21-32 mmol/L Blood Urea Nitrogen 96 *H 7-18 mg/dL Creatinine 3.6 H 0.5-1.0 mg/dL Glomerular Filtration Rate Calc 12 >90 mL/min Random Glucose 132 H 70-105 mg/dL Total Calcium 7.9 L 8.5-10.1 mg/dL Magnesium Level 1.70 L 1.80-2.40 mg/dL Total Bilirubin 0.3 # 0.2-1.0 mg/dL Aspartate Amino Transf (AST/SGOT) 37 10-37 U/L Alanine Aminotransferase (ALT/SGPT) 15 12-78 U/L Alkaline Phosphatase 61 50-136 U/L B-Type Natriuretic Peptide 4200 H 0-100 pg/mL Total Protein 6.1 6.0-8.3 g/dL Albumin 2.0 L 3.5-5.0 g/dL Stool Occult Blood POSITIVE H NEGATIVE Phosphorus Level 5.1 H 2.5-4.9 mg/dL Total Creatine Kinase 179 # 21-232 U/L Vitamin D 25-Hydroxy 44.6 30.0-100.0 ng/mL Procalcitonin 1.66 H 0.05-0.5 ng/mL ASSESSMENT: Urinary tract infection with E coli. Acute hypoxic respiratory failure requiring oxygen support. Multifocal pneumonia. Non-STEMI. Sepsis. Nasal swab positive for MRSA. Heart failure. Acute on chronic renal failure. Leukocytosis. Rhabdomyolysis. Anemia with positive fecal occult blood. Diabetes mellitus. PLAN: Continue cefepime. Continue linezolid. Continue doxycycline. Continue metronidazole. GI has been consulted and planning EGD when the patient's respiratory status improves. Continue oxygen support via nasal cannula. Cardiology following patient. Continue diuretics. Continue antidiabetics. This case was reviewed and discussed with my supervising physician Dr. Krishnamurthy and the above assessment and plan was formulated and agreed upon. ATTESTATION BY PHYSICIAN I have seen and examined the patient. I reviewed the documentation, medical decision making, and treatment plan as noted by the mid-level provider above. I agree with the findings and plan of care. BLAISE RKISHNAMURTHY MD, [facility]IRTA L [facility] Aug 31, 2025 18:51
[2025-09-01] VITALS (12 sets, daily range): BP systolic 121–143; BP diastolic 59–72; PULSE 69–85; RESP 16–20; TEMP 97–98.6; O2SAT 94–99
[2025-09-01 04:27] LABS: IMMATURE GRANULOCYTE ABSOLUTE 0.12 K/uL (0-1); NUCLEATED RED BLOOD CELLS 0.2 % (0.0-0.19); PLATELET COUNT (AUTO) 251 K/uL (130-400); RED BLOOD CELL COUNT(AUTO) 2.56 MIL/uL (4.00-5.50); RED CELL DISTRIBUTION WIDTH 14.3 % (11.0-15.5); WHITE BLOOD COUNT (AUTO) 16.8 K/uL (4.8-10.8)
[2025-09-01 04:51] LABS: ASPARTATE AMINOTRANSFERASE 29.0 U/L (10-37); CREATININE 3.9 mg/dL (0.5-1.0); GLOMERULAR FILTR. RATE CALC 11.0 mL/min (>90); GLUCOSE,RANDOM 185.0 mg/dL (70-105); SODIUM SERUM 131.0 mmol/L (136-145); TOTAL PROTEIN, SERUM 5.9 g/dL (6.0-8.3)
[2025-09-01 05:58] LABS: UREA NITROGEN, BLOOD 100.0 mg/dL (7-18)
[2025-09-01] MEDS: BENZOCAINE/MENTH/CETYLPYRD CL 1 EACH LOZENGE MM PRN (07:44)
--- NOTE | 2025-09-01 07:54 | PN ---
[facility] CARDIOLOGY PROGRESS NOTE Date Patient Seen: Sep 01, 2025 Time of Visit: 07:52 Interval History: [Cr up to 3.9, CXR with worsening right sided opacities ] Physical Examination: GENERAL: [No acute distress.] HEAD: [Normal with no signs of head trauma.] EYES: [PERRLA, EOMI, conjunctiva and sclera normal.] ENT: [Hearing grossly intact, normal oropharynx.] NECK: [Supple without JVD. There is no tenderness, lymphadenopathy, or masses. No thyromegaly. Normal carotid upstrokes without bruits.] LUNGS: [Clear breath sounds bilaterally. There are right basilar rales one third of the way up the chest. No wheezes, or rhonchi.] HEART: [Normal rate and rhythm. Normal S1 and S2 without mumurs, gallop or rub.] VASC: [Peripheral pulses +2 bilaterally.] ABD: [Bowel sounds normal, soft, nontender, no masses, no organomegaly. No audible bruits.] : [Not examined] LYMPH: [No lymphadenopathy noted.] EXT: [No clubbing, cyanosis or edema.] SKIN: [No rashes or lesions noted.] NEURO: [Awake, alert, and oriented x3. No focal sensory or strength deficits noted.] Laboratory: [ ] Hematology Labs: Test 09/01/25 04:08 Range/Units White Blood Count 16.8 H 4.8-10.8 K/uL Red Blood Count 2.56 L 4.00-5.50 MIL/uL Hemoglobin 8.3 L 12.0-16.0 g/dL Hematocrit 24.6 L 36-48 % Mean Corpuscular Volume 96.1 79-99 fL Mean Corpuscular Hemoglobin 32.4 27.0-33.0 pg Mean Corpuscular Hemoglobin Concent 33.7 32.0-36.0 g/dL Red Cell Distribution Width 14.3 11.0-15.5 % Platelet Count 251 130-400 K/uL Mean Platelet Volume 10.3 7.5-10.5 fL Immature Granulocyte % (Auto) 0.7 0-1 % Neutrophils (%) (Auto) 82.9 H 40.0-77.0 % Lymphocytes (%) (Auto) 8.2 L 21.0-51.0 % Monocytes (%) (Auto) 7.1 3.0-13.0 % Eosinophils (%) (Auto) 1.0 0.0-8.0 % Basophils (%) (Auto) 0.1 0.0-5.0 % Neutrophils # (Auto) 13.9 H 1.8-7.7 K/uL Lymphocytes # (Auto) 1.4 1.0-4.8 K/uL Monocytes # (Auto) 1.2 H 0.1-1.0 K/uL Eosinophils # (Auto) 0.17 0.00-0.70 K/uL Basophils # (Auto) 0.02 0.00-0.20 K/uL Absolute Immature Granulocyte (auto 0.12 0-1 K/uL Nucleated Red Blood Cells 0.2 H 0.0-0.19 % Chemistry Labs: Test 09/01/25 05:12 09/01/25 04:08 08/31/25 04:02 Range/Units Whole Blood Glucose 160 H 70-110 MG/DL Sodium Level 131 L 136-145 mmol/L Potassium Level 3.8 3.5-5.1 mmol/L Chloride Level 95 L 101-111 mmol/L Carbon Dioxide Level 21 21-32 mmol/L Blood Urea Nitrogen 100 *H 7-18 mg/dL Creatinine 3.9 H 0.5-1.0 mg/dL Glomerular Filtration Rate Calc 11 >90 mL/min Random Glucose 185 H 70-105 mg/dL Total Calcium 7.7 L 8.5-10.1 mg/dL Magnesium Level 2.00 1.80-2.40 mg/dL Total Bilirubin 0.5 0.2-1.0 mg/dL Aspartate Amino Transf (AST/SGOT) 29 10-37 U/L Alanine Aminotransferase (ALT/SGPT) 17 12-78 U/L Alkaline Phosphatase 65 50-136 U/L Total Protein 5.9 L 6.0-8.3 g/dL Albumin 1.9 L 3.5-5.0 g/dL B-Type Natriuretic Peptide 4200 H 0-100 pg/mL Diagnostics / Radiology: [Copy/Paste Echos/Imaging Report here] Impression and Plan: [1. Sepsis with lactic acid level of 5.8 2. Bilateral pneumonia 3. Non ST-elevation myocardial infarction type 4. CAD with a chronic occlusion of the LAD filling via collaterals January 2016 unstable angina history 5. Hypertension 6. Dyslipidemia 7. Diabetes mellitus type 2 8. Hypothyroidism 9. Right carotid bruit with normal carotid Doppler exam 2016 10. Normocytic anemia 11. Acute on chronic kidney disease with a GFR of 15 on admission 12. Advanced age 13. DNR status 14. Grade II diastolic dysfunction 15. Severe systolic heart failure LVEF 25-30% #[place] [id number]. Electrocardiogram showed no acute ST changes. the patient continues on aspirin, clopidogrel, metoprolol tartrate 25 mg q.8 hours. The patient denies any chest pain. -imdur 30 mg qd -2D echo with grade II diastolic dysfunction and severe systolic heart failure with LVEF 25-30% -Plans are for conservative management. #Severe systolic heart failure -Cr uptrending to 3.9 -Urine output reduced -Lasix 40 mg IV bid, defer diuretics to nephrology #KOSTA on CKD -consult nephrology to assist with diuretic dosing Maria D Miranda MD ] MARIA D MIRANDA MD Sep 01, 2025 07:54
[2025-09-01] MEDS ORDERED: COMPOUND PO MISCELLANEOUS 1 EACH MISC MISC PRN (09:30)
[2025-09-01] MEDS: LIDO 2% VISC 30ML+MAG/AL/SIMETH 30ML+DICYCLOMINE 20MG 10ML PO ONE (12:18)
--- NOTE | 2025-09-01 13:33 | PN ---
INFECTIOUS DISEASE PROGRESS NOTE Date of Service: Sep 01, 2025 SUBJECTIVE: Patient is currently on Lasix IV every 12 hours. Nephrology recommended to hold diuretics if renal function continues to decline. Today the BUN is 100 and creatinine is 3.9. We will follow up on levels tomorrow. No reports of nausea or vomiting. The WBC has improved to 16.8. Patient is saturating 94-100% on room air. Nursing to inform GI of stable respiratory status for possible EGD. Will continue on cefepime, linezolid, doxycycline and metronidazole. Patient reported that she vomited during physical therapy session today. Patient reported poor appetite. We will add ensure with meals. PHYSICAL EXAM EYES: Anicteric. Pupils equal and reactive. HENT: No oral thrush seen, moist Oral mucosa. NECK: Supple, no JVD or thyromegaly. LUNGS: Diminished breath sounds. Oxygen support. CARDIOVASCULAR: S1, S2 regular. No murmur heard. ABDOMEN: Soft, non tender, bowel sounds present, no organomegaly. CENTRAL NERVOUS SYSTEM: Awake, alert, oriented x 3. SKIN: No rashes, no swelling. LYMPHATICS: No peripheral lymphadenopathy' MUSCULOSKELETAL: No joint swelling, erythema or tenderness. EXTREMITIES: No cyanosis or clubbing. Weakness to bilateral lower extremities. 1+ edema to lower extremities. BACK: No deformity, no pressure ulcer. GENITOURINARY: No dysuria or hematuria. Yeager catheter. Vital Sign (Last 12 Hours) 09/01/25 09/01/25 09/01/25 09/01/25 02:29 04:00 06:32 06:32 Temp 98.1 Pulse 72 81 76 76 Resp 18 20 18 18 B/P (MAP) 133/59 Pulse Ox 93 O2 Delivery N/A Room Air Room Air N/A Room Air O2 Flow Rate 0.0 0.0 FiO2 21 21 09/01/25 09/01/25 09/01/25 08:00 11:02 12:00 Temp 97.2 97.0 Pulse 79 80 85 Resp 16 18 16 B/P (MAP) 142/72 143/68 Pulse Ox 94 100 O2 Delivery Room Air Room Air Intake & Output (last 24hrs) 08/31/25 08/31/25 09/01/25 15:00 23:00 07:00 Intake Total 200.0 ml 106.0 ml 700.0 ml Output Total 1400 ml Balance 200.0 ml 106.0 ml -700.0 ml LABS: Laboratory: Test 09/01/25 11:54 09/01/25 04:08 08/31/25 04:02 Range/Units Whole Blood Glucose 185 H 70-110 MG/DL White Blood Count 16.8 H 4.8-10.8 K/uL Red Blood Count 2.56 L 4.00-5.50 MIL/uL Hemoglobin 8.3 L 12.0-16.0 g/dL Hematocrit 24.6 L 36-48 % Mean Corpuscular Volume 96.1 79-99 fL Mean Corpuscular Hemoglobin 32.4 27.0-33.0 pg Mean Corpuscular Hemoglobin Concent 33.7 32.0-36.0 g/dL Red Cell Distribution Width 14.3 11.0-15.5 % Platelet Count 251 130-400 K/uL Mean Platelet Volume 10.3 7.5-10.5 fL Immature Granulocyte % (Auto) 0.7 0-1 % Neutrophils (%) (Auto) 82.9 H 40.0-77.0 % Lymphocytes (%) (Auto) 8.2 L 21.0-51.0 % Monocytes (%) (Auto) 7.1 3.0-13.0 % Eosinophils (%) (Auto) 1.0 0.0-8.0 % Basophils (%) (Auto) 0.1 0.0-5.0 % Neutrophils # (Auto) 13.9 H 1.8-7.7 K/uL Lymphocytes # (Auto) 1.4 1.0-4.8 K/uL Monocytes # (Auto) 1.2 H 0.1-1.0 K/uL Eosinophils # (Auto) 0.17 0.00-0.70 K/uL Basophils # (Auto) 0.02 0.00-0.20 K/uL Absolute Immature Granulocyte (auto 0.12 0-1 K/uL Nucleated Red Blood Cells 0.2 H 0.0-0.19 % Sodium Level 131 L 136-145 mmol/L Potassium Level 3.8 3.5-5.1 mmol/L Chloride Level 95 L 101-111 mmol/L Carbon Dioxide Level 21 21-32 mmol/L Blood Urea Nitrogen 100 *H 7-18 mg/dL Creatinine 3.9 H 0.5-1.0 mg/dL Glomerular Filtration Rate Calc 11 >90 mL/min Random Glucose 185 H 70-105 mg/dL Total Calcium 7.7 L 8.5-10.1 mg/dL Magnesium Level 2.00 1.80-2.40 mg/dL Total Bilirubin 0.5 0.2-1.0 mg/dL Aspartate Amino Transf (AST/SGOT) 29 10-37 U/L Alanine Aminotransferase (ALT/SGPT) 17 12-78 U/L Alkaline Phosphatase 65 50-136 U/L Total Protein 5.9 L 6.0-8.3 g/dL Albumin 1.9 L 3.5-5.0 g/dL B-Type Natriuretic Peptide 4200 H 0-100 pg/mL ASSESSMENT: Urinary tract infection with E coli. Acute hypoxic respiratory failure requiring oxygen support. Multifocal pneumonia. Non-STEMI. Sepsis. Nasal swab positive for MRSA. Heart failure. Acute on chronic renal failure. Leukocytosis. Rhabdomyolysis. Anemia with positive fecal occult blood. Diabetes mellitus. PLAN: Continue cefepime. Continue linezolid. Continue doxycycline. Continue metronidazole. GI has been consulted and planning EGD when the patient's respiratory status improves. Continue oxygen support as needed. Circuit Breaker Mechanic following patient. Continue diuretics for now. Continue antidiabetics. Add ensure with meals. This case was reviewed and discussed with my supervising physician Dr. Krishnamurthy and the above assessment and plan was formulated and agreed upon. ATTESTATION BY PHYSICIAN I have seen and examined the patient. I reviewed the documentation, medical decision making, and treatment plan as noted by the mid-level provider above. I agree with the findings and plan of care. BLAISE KRISHNAMURTHY MD, [facility]TA [facility] Sep 01, 2025 13:33
--- NOTE | 2025-09-01 14:49 | NUR ---
PHYSICIAN ROUNDING Dr. Krishnamurthy at bedside. Plan of care reviewed with patient. New order for Ensure BID.
--- NOTE | 2025-09-01 16:02 | HMCIMG ---
CHEST 1VW REASON: pp COMPARISON: Study from 08/31/2025 is available. FINDINGS: Single view of the chest was obtained. The cardiac silhouette is within the limits of normal. There is uncoiling atherosclerotic change of thoracic aorta. There is cephalization of pulmonary vasculature suggesting of mild interstitial pulmonary edema which was seen before and appears to be unchanged. There is no evidence of any pleural effusion.. Mediastinum and bony thorax appear unremarkable. There is mild osteopenia of the bony thorax. IMPRESSION: 1 early interstitial pulmonary edema which is unchanged from prior study..
[2025-09-01] MEDS: LACTOSE-REDUCED VAN/STB/CHOC 237 ML BOTTLE PO SCH (17:00)
--- NOTE | 2025-09-01 19:20 | PN ---
NEPHROLOGY PROGRESS NOTE Date of Service: Sep 01, 2025 Time of Service: 0615 SUBJECTIVE: [ Patient was evaluated at bedside with nursing no acute events reported overnight. Labs reveal up trend on creatinine clearance at 3.9 total urine output confirmed with nursing 1400 total. At this time there is an additional 300 mL of urine output in her Yeager bag. Plans are to hold diuretics for 24 hours and resume tomorrow morning. ] REVIEW OF SYSTEMS CONSTITUTIONAL: Denies fever, chills, or fatigue. HEAD/FACE: No signs of trauma. EENT: Denies eye pain, blurred vision, double vision, or light sensitivity. RESPIRATORY: Denies shortness of breath, cough, wheezing CARDIOVASCULAR: Denies chest pain, palpitation, syncope GASTROINTESTINAL/ABDOMINAL: Denies abdominal pain, constipation, diarrhea, nausea or vomiting GENITOURINARY: Denies dysuria or hematuria. MUSCULOSKELETAL: Denies joint pain, tenderness, or trauma. INTEGUMENTARY: Denies rash or itchiness NEUROLOGICAL/PSYCH: Denies anxiety, depression, heat or cold intolerance. PHYSICAL EXAM EYES: Anicteric. Pupils equal and reactive. HENT: No oral thrush seen, moist Oral mucosa NECK: Supple LUNGS: Rales bilateral lobes CARDIOVASCULAR: RRR ABDOMEN: Soft, non tender, bowel sounds present, no organomegaly CENTRAL NERVOUS SYSTEM: Awake, alert, oriented x 3. No focal deficits. EXTREMITIES: No edema GENITOURINARY: Yeager Catheter present Vital Signs (last 8hr) Date Time Temp Pulse Resp B/P (MAP) Pulse Ox O2 Delivery O2 Flow Rate FiO2 09/01/25 19:10 76 19 09/01/25 19:05 76 18 N/A Room Air 21 09/01/25 19:05 73 18 09/01/25 16:00 97.0 69 16 140/65 96 Room Air 09/01/25 12:00 97.0 85 16 143/68 100 Room Air LABS: Laboratory: Test 09/01/25 15:52 09/01/25 04:08 08/31/25 04:02 Range/Units Whole Blood Glucose 129 H 70-110 MG/DL White Blood Count 16.8 H 4.8-10.8 K/uL Red Blood Count 2.56 L 4.00-5.50 MIL/uL Hemoglobin 8.3 L 12.0-16.0 g/dL Hematocrit 24.6 L 36-48 % Mean Corpuscular Volume 96.1 79-99 fL Mean Corpuscular Hemoglobin 32.4 27.0-33.0 pg Mean Corpuscular Hemoglobin Concent 33.7 32.0-36.0 g/dL Red Cell Distribution Width 14.3 11.0-15.5 % Platelet Count 251 130-400 K/uL Mean Platelet Volume 10.3 7.5-10.5 fL Immature Granulocyte % (Auto) 0.7 0-1 % Neutrophils (%) (Auto) 82.9 H 40.0-77.0 % Lymphocytes (%) (Auto) 8.2 L 21.0-51.0 % Monocytes (%) (Auto) 7.1 3.0-13.0 % Eosinophils (%) (Auto) 1.0 0.0-8.0 % Basophils (%) (Auto) 0.1 0.0-5.0 % Neutrophils # (Auto) 13.9 H 1.8-7.7 K/uL Lymphocytes # (Auto) 1.4 1.0-4.8 K/uL Monocytes # (Auto) 1.2 H 0.1-1.0 K/uL Eosinophils # (Auto) 0.17 0.00-0.70 K/uL Basophils # (Auto) 0.02 0.00-0.20 K/uL Absolute Immature Granulocyte (auto 0.12 0-1 K/uL Nucleated Red Blood Cells 0.2 H 0.0-0.19 % Sodium Level 131 L 136-145 mmol/L Potassium Level 3.8 3.5-5.1 mmol/L Chloride Level 95 L 101-111 mmol/L Carbon Dioxide Level 21 21-32 mmol/L Blood Urea Nitrogen 100 *H 7-18 mg/dL Creatinine 3.9 H 0.5-1.0 mg/dL Glomerular Filtration Rate Calc 11 >90 mL/min Random Glucose 185 H 70-105 mg/dL Total Calcium 7.7 L 8.5-10.1 mg/dL Magnesium Level 2.00 1.80-2.40 mg/dL Total Bilirubin 0.5 0.2-1.0 mg/dL Aspartate Amino Transf (AST/SGOT) 29 10-37 U/L Alanine Aminotransferase (ALT/SGPT) 17 12-78 U/L Alkaline Phosphatase 65 50-136 U/L Total Protein 5.9 L 6.0-8.3 g/dL Albumin 1.9 L 3.5-5.0 g/dL B-Type Natriuretic Peptide 4200 H 0-100 pg/mL DIAGNOSTICS / RADIOLOGY: [ ] ASSESSMENT: Acute on chronic kidney injury Underlying CKD stage 3 Sepsis NSTEMI Anemia Pleural Effusion/Vascular Congestion Leukocytosis BNP >5000 Hypocalcemia Hypoalbuminemia Heart Failure PLAN: 1. Acute on chronic kidney injury- Underlying CKD stage 3; etiology presumed hemodynamic in setting of heart failure. Probable cardiorenal component; patient has declined dialysis. Hold RAAS blockers, no NSAIDs; renal dose antibiotics; agree with diuresis to improve forward flow; furosemide 20mg IV q12hrs; continue with strict I&O; Fluid restriction 1 liter; we will hold diuretics today and repeat labs in the morning. 2. Sepsis/Leukocytosis- ID following; renal dose antibiotics; trend labs. 3. NSTEMI/Heart Failure -BNP >5000 ; LVEF is 25-30%, Stage II, diastolic dysfunction; hold diuresis at this time; cardiology following. 4. Anemia- keep hgb above 10%; epogen today; positive FOBT; GI consulted and has deferred intervention until patient's cardiovascular, pulmonary and renal status has stabilized. 5. Pleural Effusion/Vascular Congestion- agree with diuresis to improve forward flow; furosemide 20mg IV q12hrs; at this time we will hold for 24 hours and resume tomorrow morning. This visit was rendered and documented by Robinson Mata, MSN, [employer], DEMURRAGE CLERK-C and completed in collaboration with my supervising physician Tonja Arthur MD. ROBINSON MATA Sep 01, 2025 19:20
[2025-09-02] VITALS (11 sets, daily range): BP systolic 101–144; BP diastolic 45–80; PULSE 67–84; RESP 17–20; TEMP 97.7–98.4; O2SAT 96–99
[2025-09-02 05:59] LABS: ASPARTATE AMINOTRANSFERASE 30.0 U/L (10-37); CREATININE 4.0 mg/dL (0.5-1.0); GLOMERULAR FILTR. RATE CALC 10.0 mL/min (>90); GLUCOSE,RANDOM 173.0 mg/dL (70-105); SODIUM SERUM 134.0 mmol/L (136-145); TOTAL PROTEIN, SERUM 5.8 g/dL (6.0-8.3)
[2025-09-02 06:10] LABS: UREA NITROGEN, BLOOD 102.0 mg/dL (7-18)
--- NOTE | 2025-09-02 10:41 | HMCIMG ---
CHEST 1VW REASON: pp COMPARISON: Prior study from 09/01/2025 is available. FINDINGS: Single view of the chest was obtained. The cardiac size is within limits of normal. There is mild interstitial pulmonary edema with suggestion of bilateral pleural effusion with hazy appearance in both lower lung.. Mediastinum and bony thorax appear unremarkable. IMPRESSION: 1. Unchanged mild interstitial pulmonary edema as compared to prior study.
--- NOTE | 2025-09-02 11:59 | PN ---
[facility] CARDIOLOGY PROGRESS NOTE Date Patient Seen: Sep 02, 2025 Time of Visit: 11:57 Interval History: [Cr up to 4, CXR with worsening right sided opacities ] Physical Examination: GENERAL: [No acute distress.] HEAD: [Normal with no signs of head trauma.] EYES: [PERRLA, EOMI, conjunctiva and sclera normal.] ENT: [Hearing grossly intact, normal oropharynx.] NECK: [Supple without JVD. There is no tenderness, lymphadenopathy, or masses. No thyromegaly. Normal carotid upstrokes without bruits.] LUNGS: [Clear breath sounds bilaterally. There are right basilar rales one third of the way up the chest. No wheezes, or rhonchi.] HEART: [Normal rate and rhythm. Normal S1 and S2 without mumurs, gallop or rub.] VASC: [Peripheral pulses +2 bilaterally.] ABD: [Bowel sounds normal, soft, nontender, no masses, no organomegaly. No audible bruits.] : [Not examined] LYMPH: [No lymphadenopathy noted.] EXT: [No clubbing, cyanosis or edema.] SKIN: [No rashes or lesions noted.] NEURO: [Awake, alert, and oriented x3. No focal sensory or strength deficits noted.] Laboratory: [ ] Hematology Labs: Test 09/01/25 04:08 Range/Units White Blood Count 16.8 H 4.8-10.8 K/uL Red Blood Count 2.56 L 4.00-5.50 MIL/uL Hemoglobin 8.3 L 12.0-16.0 g/dL Hematocrit 24.6 L 36-48 % Mean Corpuscular Volume 96.1 79-99 fL Mean Corpuscular Hemoglobin 32.4 27.0-33.0 pg Mean Corpuscular Hemoglobin Concent 33.7 32.0-36.0 g/dL Red Cell Distribution Width 14.3 11.0-15.5 % Platelet Count 251 130-400 K/uL Mean Platelet Volume 10.3 7.5-10.5 fL Immature Granulocyte % (Auto) 0.7 0-1 % Neutrophils (%) (Auto) 82.9 H 40.0-77.0 % Lymphocytes (%) (Auto) 8.2 L 21.0-51.0 % Monocytes (%) (Auto) 7.1 3.0-13.0 % Eosinophils (%) (Auto) 1.0 0.0-8.0 % Basophils (%) (Auto) 0.1 0.0-5.0 % Neutrophils # (Auto) 13.9 H 1.8-7.7 K/uL Lymphocytes # (Auto) 1.4 1.0-4.8 K/uL Monocytes # (Auto) 1.2 H 0.1-1.0 K/uL Eosinophils # (Auto) 0.17 0.00-0.70 K/uL Basophils # (Auto) 0.02 0.00-0.20 K/uL Absolute Immature Granulocyte (auto 0.12 0-1 K/uL Nucleated Red Blood Cells 0.2 H 0.0-0.19 % Chemistry Labs: Test 09/02/25 10:56 09/02/25 04:04 09/01/25 04:08 Range/Units Whole Blood Glucose 176 H 70-110 MG/DL Sodium Level 134 L 136-145 mmol/L Potassium Level 3.7 3.5-5.1 mmol/L Chloride Level 93 L 101-111 mmol/L Carbon Dioxide Level 20 L 21-32 mmol/L Blood Urea Nitrogen 102 *H 7-18 mg/dL Creatinine 4.0 H 0.5-1.0 mg/dL Glomerular Filtration Rate Calc 10 >90 mL/min Random Glucose 173 H 70-105 mg/dL Total Calcium 7.6 L 8.5-10.1 mg/dL Total Bilirubin 0.5 0.2-1.0 mg/dL Aspartate Amino Transf (AST/SGOT) 30 10-37 U/L Alanine Aminotransferase (ALT/SGPT) 16 12-78 U/L Alkaline Phosphatase 61 50-136 U/L Total Protein 5.8 L 6.0-8.3 g/dL Albumin 1.8 L 3.5-5.0 g/dL Magnesium Level 2.00 1.80-2.40 mg/dL Diagnostics / Radiology: [Copy/Paste Echos/Imaging Report here] Impression and Plan: [1. Sepsis with lactic acid level of 5.8 2. Bilateral pneumonia 3. Non ST-elevation myocardial infarction type 4. CAD with a chronic occlusion of the LAD filling via collaterals January 2016 unstable angina history 5. Hypertension 6. Dyslipidemia 7. Diabetes mellitus type 2 8. Hypothyroidism 9. Right carotid bruit with normal carotid Doppler exam 2016 10. Normocytic anemia 11. Acute on chronic kidney disease with a GFR of 15 on admission 12. Advanced age 13. DNR status 14. Grade II diastolic dysfunction 15. Severe systolic heart failure LVEF 25-30% #[place] [id number]. Electrocardiogram showed no acute ST changes. the patient continues on aspirin, clopidogrel, metoprolol tartrate 25 mg q.8 hours. The patient denies any chest pain. -imdur 30 mg qd -2D echo with grade II diastolic dysfunction and severe systolic heart failure with LVEF 25-30% -Plans are for conservative management. #Severe systolic heart failure and severe CKD -Cr uptrending to 4 -Urine output reduced -I spoke to Dr Jennifer Wright and she suspended diuretics 09/01 -patient declines initiation of dialysis Stacia Miranda MD ] STACIA MIRANDA MD Sep 02, 2025 11:59
[2025-09-02] MEDS: CLOTRIMAZOLE 10 MG TROCHE MM SCH (14:15)
--- NOTE | 2025-09-02 23:11 | PN ---
[facility] PROGRESS NOTE Date Patient Seen: Sep 02, 2025 Time of Visit: 23:11 Supervising Physician: Dr Thomas Almonte Primary Care Physician: CHANCE LAWS MD ATTENDING PHYSICIAN: DR JOSE WELSH Outpatient Specialists: [ ] Inpatient Consults: CCM - BIS, CARDIOLOGY - DR BHATTI PROBLEM LIST: NSTEMI II Acute hypoxemic respiratory failure Suspected healthcare associated pneumoniae Acute complicated cystitis POA Acute on chronic CKD CAD, chronic total occlusion of the LAD Normocytic normochromic anemia Hypertension Hyperlipidemia Hyperglycemia in the presence of Type 2 diabetes mellitus Hypothyroidism INTERVAL HISTORY: Pleasant friendly patient with supportive family members present, awake, alert, oriented and in no acute distress. Vital signs and laboratory results reviewed and discussed. Continue antibiotic: Zyvox for the treatment of E coli positive urine culture Nursing staff report no adverse events occurring overnight. Accompanied by patient's bedside nurse. Vital signs stable. Afebrile. Patient denies shortness or breath fever and chills, nauseousness, and diarrhea currently A.m. labs ordered. REVIEW OF SYSTEMS: Const: no fever, fatigue, or weight changes Eyes: no recent vision problems ENT: No congestion, ear pain, or sore throat C/V: + chest pain, palpitations, shortness for breath Resp:+ shortness of the breath GI: No abdominal pain, nausea, vomiting, constipation, or diarrhea : No incontinence of or dyuria M/S: No joint or pain swelling Skin: No rash Neuro: no headache, focal numbness, or weakness, dizziness or seizures Psych: no depression or anxiety Heme: no abnormal bruising or bleeding Lymph: no swollen glands PHYSICAL EXAM: GENERAL: alert, weak, awake oriented x 3 HEENT: EOMI, Sclera non icteric, moist mucosa NECK: Supple, no JVD, trachea midline LUNGS: Diminished breath sounds bilaterally. No wheezes HEART: Regular rate and rhythm. Normal S1 and S2, without murmurs ABD: Abdomen soft, nontender. Bowel sounds present EXT: No clubbing cyanosis or edema NEURO: Alert and oriented to person, follows commands Vital Signs (last 8hr) Date Time Temp Pulse Resp B/P (MAP) Pulse Ox O2 Delivery O2 Flow Rate FiO2 09/02/25 20:00 98.2 79 20 101/45 96 Room Air 09/02/25 19:03 68 18 09/02/25 19:02 67 18 N/A Room Air 21 09/02/25 16:00 98.1 78 17 144/80 99 Room Air LABS: Hematology Labs: Test 09/01/25 04:08 Range/Units White Blood Count 16.8 H 4.8-10.8 K/uL Red Blood Count 2.56 L 4.00-5.50 MIL/uL Hemoglobin 8.3 L 12.0-16.0 g/dL Hematocrit 24.6 L 36-48 % Mean Corpuscular Volume 96.1 79-99 fL Mean Corpuscular Hemoglobin 32.4 27.0-33.0 pg Mean Corpuscular Hemoglobin Concent 33.7 32.0-36.0 g/dL Red Cell Distribution Width 14.3 11.0-15.5 % Platelet Count 251 130-400 K/uL Mean Platelet Volume 10.3 7.5-10.5 fL Immature Granulocyte % (Auto) 0.7 0-1 % Neutrophils (%) (Auto) 82.9 H 40.0-77.0 % Lymphocytes (%) (Auto) 8.2 L 21.0-51.0 % Monocytes (%) (Auto) 7.1 3.0-13.0 % Eosinophils (%) (Auto) 1.0 0.0-8.0 % Basophils (%) (Auto) 0.1 0.0-5.0 % Neutrophils # (Auto) 13.9 H 1.8-7.7 K/uL Lymphocytes # (Auto) 1.4 1.0-4.8 K/uL Monocytes # (Auto) 1.2 H 0.1-1.0 K/uL Eosinophils # (Auto) 0.17 0.00-0.70 K/uL Basophils # (Auto) 0.02 0.00-0.20 K/uL Absolute Immature Granulocyte (auto 0.12 0-1 K/uL Nucleated Red Blood Cells 0.2 H 0.0-0.19 % Chemistry Labs: Test 09/02/25 19:49 09/02/25 04:04 09/01/25 04:08 Range/Units Whole Blood Glucose 118 H 70-110 MG/DL Sodium Level 134 L 136-145 mmol/L Potassium Level 3.7 3.5-5.1 mmol/L Chloride Level 93 L 101-111 mmol/L Carbon Dioxide Level 20 L 21-32 mmol/L Blood Urea Nitrogen 102 *H 7-18 mg/dL Creatinine 4.0 H 0.5-1.0 mg/dL Glomerular Filtration Rate Calc 10 >90 mL/min Random Glucose 173 H 70-105 mg/dL Total Calcium 7.6 L 8.5-10.1 mg/dL Total Bilirubin 0.5 0.2-1.0 mg/dL Aspartate Amino Transf (AST/SGOT) 30 10-37 U/L Alanine Aminotransferase (ALT/SGPT) 16 12-78 U/L Alkaline Phosphatase 61 50-136 U/L Total Protein 5.8 L 6.0-8.3 g/dL Albumin 1.8 L 3.5-5.0 g/dL Magnesium Level 2.00 1.80-2.40 mg/dL DIAGNOSTICS / RADIOLOGY RESULTS: [ ] PLAN NEURO: Minimize central acting medications as possible. Maintain fall precautions, adequate lighting during the day PULMONARY: Supplemental 02 as needed. Maintain aspiration precautions at all times CARDIOVASCULAR: Follow hemodynamics. Vital signs per facility protocol GI & NUTRITION: Continue with nutritional support. Continue stool softeners and laxatives as needed. KIDNEYS & ELECTROLYTES: Strict monitoring of intake, output and overall fluid balance. Avoid nephrotoxic medications to the extent possible. Medications to be dosed according to renal function. Monitor electrolytes and replace as needed ENDOCRINE: Maintain blood glucose between 100-180 at all times. Hypoglycemia protocol in place INFECTIOUS DISEASE: Trend temperature, WBC and procalcitonin level Follow cultures, deescalate antibiotics as soon as possible. Panculture if new onset fever ONCOLOGY/HEMATOLOGY/COAGULATION: Monitor for s/s of bleeding Monitor hemoglobin, coagulation studies as needed SKIN: Pressure ulcer prevention per facility protocol Specialty mattress ORTHO/REHAB: Continue PT/OT Prophylaxis: Continue GI and DVT prophylaxis Code Status: Full Resuscitation Disposition: MICHELA FORMAN AGACNP Sep 02, 2025 23:11
[2025-09-03] VITALS (46 sets, daily range): BP systolic 72–135; BP diastolic 40–73; PULSE 58–139; RESP 18–95; TEMP 97.4–98; O2SAT 96–100
--- NOTE | 2025-09-03 01:17 | PN ---
INFECTIOUS DISEASE FOLLOWUP NOTE DATE OF SERVICE: 09/02/2025 SUBJECTIVE: The patient is seen and examined at bedside today. No fever, no chills. No bleeding tendency. No palpitations. No orthopnea. Denies rashes or itchiness. The patient denies dysuria, frequency. No neck pain or neck swelling. No . PHYSICAL EXAMINATION: VITAL SIGNS: Temperature 97.5. EYES: No icterus. Pupils equal and reactive. HENT: No oral thrush seen. Moist oral mucosa. NECK: Supple. No JVD or thyromegaly. LUNGS: Good air entry. No rales, no rhonchi. CARDIOVASCULAR: S1 and S2 regular. No murmur heard .ABDOMEN: Soft, nontender. Bowel sounds present. CENTRAL NERVOUS SYSTEM: Awake, alert, oriented x 3. No focal deficits. SKIN: No rashes, no itchiness. LYMPHATIC: No peripheral lymphadenopathy. BACK: No deformities, no pressure ulcer. ASSESSMENT: An 85-year-old female with multiple problems. * Urinary tract infection. * Diabetes mellitus. . * Respiratory failure. * Heart failure. * Pneumonia. PLAN: * Continue cefepime. * Continue nutritional support. * Continue . * Continue on telemetry. * Continue GI prophylaxis. * Monitor electrolytes. * The patient will be followed up closely. TID: [id number] RECEIPT: [id number]
[2025-09-03 03:43] LABS: NUCLEATED RED BLOOD CELLS 0.2 % (0.0-0.19); PLATELET COUNT (AUTO) 233.0 K/uL (130-400); RED BLOOD CELL COUNT(AUTO) 2.46 MIL/uL (4.00-5.50); RED CELL DISTRIBUTION WIDTH 14.3 % (11.0-15.5); WHITE BLOOD COUNT (AUTO) 16.0 K/uL (4.8-10.8)
[2025-09-03 04:24] LABS: ASPARTATE AMINOTRANSFERASE 35.0 U/L (10-37); CREATININE 4.0 mg/dL (0.5-1.0); GLOMERULAR FILTR. RATE CALC 10.0 mL/min (>90); GLUCOSE,RANDOM 117.0 mg/dL (70-105); SODIUM SERUM 133.0 mmol/L (136-145); TOTAL PROTEIN, SERUM 5.6 g/dL (6.0-8.3)
[2025-09-03 04:30] LABS: UREA NITROGEN, BLOOD 104.0 mg/dL (7-18)
--- NOTE | 2025-09-03 10:29 | PN ---
[facility] CARDIOLOGY PROGRESS NOTE Date Patient Seen: Sep 03, 2025 Time of Visit: 10:29 Interval History: [Cr up to 4, CXR with worsening right sided opacities. Nurse called at 10:20 am today reporting patient was having heart rate in the 160s bpm and she was having chest pain. ECG with a-fib RVR.] Physical Examination: GENERAL: [No acute distress.] HEAD: [Normal with no signs of head trauma.] EYES: [PERRLA, EOMI, conjunctiva and sclera normal.] ENT: [Hearing grossly intact, normal oropharynx.] NECK: [Supple without JVD. There is no tenderness, lymphadenopathy, or masses. No thyromegaly. Normal carotid upstrokes without bruits.] LUNGS: [Clear breath sounds bilaterally. There are right basilar rales one third of the way up the chest. No wheezes, or rhonchi.] HEART: [Irregular rate and rhythm. Normal S1 and S2 without mumurs, gallop or rub.] VASC: [Peripheral pulses +2 bilaterally.] ABD: [Bowel sounds normal, soft, nontender, no masses, no organomegaly. No audible bruits.] : [Not examined] LYMPH: [No lymphadenopathy noted.] EXT: [No clubbing, cyanosis or edema.] SKIN: [No rashes or lesions noted.] NEURO: [Awake, alert, and oriented x3. No focal sensory or strength deficits noted.] Laboratory: [ ] Hematology Labs: Test 09/03/25 03:28 Range/Units White Blood Count 16.0 H 4.8-10.8 K/uL Red Blood Count 2.46 L 4.00-5.50 MIL/uL Hemoglobin 7.9 L 12.0-16.0 g/dL Hematocrit 22.9 L 36-48 % Mean Corpuscular Volume 93.1 79-99 fL Mean Corpuscular Hemoglobin 32.1 27.0-33.0 pg Mean Corpuscular Hemoglobin Concent 34.5 32.0-36.0 g/dL Red Cell Distribution Width 14.3 11.0-15.5 % Platelet Count 233 130-400 K/uL Mean Platelet Volume 10.3 7.5-10.5 fL Nucleated Red Blood Cells 0.2 H 0.0-0.19 % Chemistry Labs: Test 09/03/25 10:17 09/03/25 03:28 Range/Units Whole Blood Glucose 184 #H 70-110 MG/DL Sodium Level 133 L 136-145 mmol/L Potassium Level 4.1 3.5-5.1 mmol/L Chloride Level 96 L 101-111 mmol/L Carbon Dioxide Level 21 21-32 mmol/L Blood Urea Nitrogen 104 *H 7-18 mg/dL Creatinine 4.0 H 0.5-1.0 mg/dL Glomerular Filtration Rate Calc 10 >90 mL/min Random Glucose 117 H 70-105 mg/dL Total Calcium 7.6 L 8.5-10.1 mg/dL Magnesium Level 1.90 1.80-2.40 mg/dL Total Bilirubin 0.5 0.2-1.0 mg/dL Aspartate Amino Transf (AST/SGOT) 35 10-37 U/L Alanine Aminotransferase (ALT/SGPT) 15 12-78 U/L Alkaline Phosphatase 57 50-136 U/L B-Type Natriuretic Peptide 2500 H 0-100 pg/mL Total Protein 5.6 L 6.0-8.3 g/dL Albumin 1.7 L 3.5-5.0 g/dL Diagnostics / Radiology: [Copy/Paste Echos/Imaging Report here] Impression and Plan: [1. Sepsis with lactic acid level of 5.8 2. Bilateral pneumonia 3. Non ST-elevation myocardial infarction type 4. CAD with a chronic occlusion of the LAD filling via collaterals January 2016 unstable angina history 5. Hypertension 6. Dyslipidemia 7. Diabetes mellitus type 2 8. Hypothyroidism 9. Right carotid bruit with normal carotid Doppler exam 2016 10. Normocytic anemia 11. Acute on chronic kidney disease with a GFR of 15 on admission 12. Advanced age 13. DNR status 14. Grade II diastolic dysfunction 15. Severe systolic heart failure LVEF 25-30% 16. A-fib RVR #[place] [address]. Electrocardiogram showed no acute ST changes. the patient continues on aspirin, clopidogrel, metoprolol tartrate 25 mg q.8 hours. The patient denies any chest pain. -imdur 30 mg qd -2D echo with grade II diastolic dysfunction and severe systolic heart failure with LVEF 25-30% -Plans are for conservative management. #Severe systolic heart failure and severe CKD -Cr uptrending to 4 -Urine output reduced -I spoke to Dr Jennifer Wright and she suspended diuretics 10/17, however, today they will be resumed -patient declines initiation of dialysis #A-fib RVR, new on 09/03 10:30 am -2d echo with mild LAE -amiodarone 150 mg bolus and gtt -eliquis 2.5 mg bid Stacia Miranda MD ] STACIA MIRANDA MD Sep 03, 2025 10:29
--- NOTE | 2025-09-03 10:33 | NUR ---
PATIENT WITH CHEST PRESSURE , HR IN 160S . NOTIFIED DR GARCIA AND DR HARMON . EKG DONE ,AFIB WITH RVR , DR HARMON PLACING ORDERS .
--- NOTE | 2025-09-03 10:34 | EKG ---
[facility] Test Date: 2025-09-03 Test Time: 10:18:48 Pat Name: HUSSAIN STRONG Department: [facility] Room: 215 Gender: F Review Coordinator: FRANCOIS : 1940 Requested By: BLAISE GARCIA Order Number: [id number] Reading MD: Иван Miranda Measurements Intervals [place] Rate: 156 P: 0 HI: 0 QRS: -56 QRSD: 112 T: 115 QT: 300 QTc: 483 Interpretive Statements Undetermined rhythm with baseline artifact Possible svt vs sinus tachycardia Electronically Signed On 09-03-2025 12:52:09 CDT by Иван Miranda Please click the below link to view image of tracing.
[2025-09-03] MEDS: AMIOdarone 150MG/100ML BAG 100 ML IV SCH (10:58)
[2025-09-03] MEDS ORDERED: AMIODARONE 360MG/200ML BAG 200 ML IV SCH (11:00)
[2025-09-03] MEDS ORDERED: AMIOdarone 150MG/100ML BAG 100 ML IV SCH (11:00)
--- NOTE | 2025-09-03 11:02 | NUR ---
BEDSIDE REPORT GIVEN TO CONCHITA PRO , UPDATED DR HARMON ON ROOM NUMBER AND UPDATED DR GARCIA
[2025-09-03] MEDS: AMIODARONE 360MG/200ML BAG 200 ML IV SCH (11:03)
[2025-09-03] MEDS ORDERED: COMPOUND IV MISC 1 EACH IVSOLN MISC PRN (11:30)
[2025-09-03] MEDS ORDERED: COMPOUND IV REFRIGERATED 1 EACH IVSOLN MISC PRN (11:30)
[2025-09-03] MEDS: AMIOdarone 150MG/100ML BAG 100 ML IV ONE (12:19)
[2025-09-03 13:21] LABS: INR 1.42 (0.85-1.15)
--- NOTE | 2025-09-03 14:24 | PN ---
[facility] PROGRESS NOTE Date Patient Seen: Sep 03, 2025 Time of Visit: 14:20 Supervising Physician: Dr Thomas Almonte Primary Care Physician: CHANCE LAWS MD ATTENDING PHYSICIAN: DR JOSE WELSH Outpatient Specialists: [ ] Inpatient Consults: CCM - BIS, CARDIOLOGY - DR BHATTI PROBLEM LIST: AFib with RVR, new onset NSTEMI II Acute hypoxemic respiratory failure Suspected healthcare associated pneumoniae Acute complicated cystitis POA Acute on chronic CKD CAD, chronic total occlusion of the LAD Normocytic normochromic anemia Hypertension Hyperlipidemia Hyperglycemia in the presence of Type 2 diabetes mellitus Hypothyroidism INTERVAL HISTORY: Patient was an upgrade from the floor because of AFib with RVR, heart rate in the 160s, transferred down to the ICU and placed on amiodarone drip, seen and evaluated By Cardiology. Amnio bolus is running Patient is awake alert and oriented By history she is an EF of 25-30% with grade 2 diastolic She is on aspirin, Plavix and Eliquis, pending confirmation by [place] Review of labs are all good we are pending repeat And we are pending a chest x-ray Plan: Patient with Gram-negative rods to urine, she is currently on cefepime, Zyvox and doxy by Infectious Disease Refer AFib RVR she is running the amiodarone drip Patient currently on aspirin, Eliquis and Plavix along with statin and beta- jessica. We are pending Cardiology recommendations Follow pending labs and imaging Telemetry Family updated At bedside Total critical care time 43 minutes, time excludes any procedures performed or educational time. Patient at high risk for decompensation REVIEW OF SYSTEMS: Const: no fever, fatigue, or weight changes Eyes: no recent vision problems ENT: No congestion, ear pain, or sore throat C/V: + chest pain, palpitations, shortness for breath Resp:+ shortness of the breath GI: No abdominal pain, nausea, vomiting, constipation, or diarrhea : No incontinence of or dyuria M/S: No joint or pain swelling Skin: No rash Neuro: no headache, focal numbness, or weakness, dizziness or seizures Psych: no depression or anxiety Heme: no abnormal bruising or bleeding Lymph: no swollen glands PHYSICAL EXAM: GENERAL: alert, weak, awake oriented x 3 HEENT: EOMI, Sclera non icteric, moist mucosa NECK: Supple, no JVD, trachea midline LUNGS: Diminished breath sounds bilaterally. No wheezes HEART: Regular rate and rhythm. Normal S1 and S2, without murmurs ABD: Abdomen soft, nontender. Bowel sounds present EXT: No clubbing cyanosis or edema NEURO: Alert and oriented to person, follows commands Vital Signs (last 8hr) Date Time Temp Pulse Resp B/P (MAP) Pulse Ox O2 Delivery O2 Flow Rate FiO2 09/03/25 12:00 99 Room Air* 0 21 09/03/25 12:00 97.7 139 57 97/73 98 Room Air 09/03/25 11:45 137 37 131/50 100 Room Air 09/03/25 11:30 133 27 102/58 100 Room Air 09/03/25 11:23 125 18 N/A Room Air 21 09/03/25 11:21 130 18 09/03/25 08:00 98.1 92 18 119/57 100 Room Air 09/03/25 07:45 96 Room Air* 0 21 LABS: Hematology Labs: Test 09/03/25 03:28 Range/Units White Blood Count 16.0 H 4.8-10.8 K/uL Red Blood Count 2.46 L 4.00-5.50 MIL/uL Hemoglobin 7.9 L 12.0-16.0 g/dL Hematocrit 22.9 L 36-48 % Mean Corpuscular Volume 93.1 79-99 fL Mean Corpuscular Hemoglobin 32.1 27.0-33.0 pg Mean Corpuscular Hemoglobin Concent 34.5 32.0-36.0 g/dL Red Cell Distribution Width 14.3 11.0-15.5 % Platelet Count 233 130-400 K/uL Mean Platelet Volume 10.3 7.5-10.5 fL Nucleated Red Blood Cells 0.2 H 0.0-0.19 % Chemistry Labs: Test 09/03/25 11:02 09/03/25 03:28 Range/Units Whole Blood Glucose 202 H 70-110 MG/DL Sodium Level 133 L 136-145 mmol/L Potassium Level 4.1 3.5-5.1 mmol/L Chloride Level 96 L 101-111 mmol/L Carbon Dioxide Level 21 21-32 mmol/L Blood Urea Nitrogen 104 *H 7-18 mg/dL Creatinine 4.0 H 0.5-1.0 mg/dL Glomerular Filtration Rate Calc 10 >90 mL/min Random Glucose 117 H 70-105 mg/dL Total Calcium 7.6 L 8.5-10.1 mg/dL Magnesium Level 1.90 1.80-2.40 mg/dL Total Bilirubin 0.5 0.2-1.0 mg/dL Aspartate Amino Transf (AST/SGOT) 35 10-37 U/L Alanine Aminotransferase (ALT/SGPT) 15 12-78 U/L Alkaline Phosphatase 57 50-136 U/L B-Type Natriuretic Peptide 2500 H 0-100 pg/mL Total Protein 5.6 L 6.0-8.3 g/dL Albumin 1.7 L 3.5-5.0 g/dL Coagulation Labs: Test 09/03/25 13:02 Range/Units Prothrombin Time 14.5 H 9.6-11.6 SEC Prothromb Time International Ratio 1.42 H 0.85-1.15 Activated Partial Thromboplast Time 29.7 26.3-35.5 SEC DIAGNOSTICS / RADIOLOGY RESULTS: [ ] PLAN Plan: NEURO: Minimize central acting medications as possible. Fall Precautions. Well lighted room through the day and minimize interruptions through the night to prevent acute delirium. PULMONARY: Supplemental 02 as needed Titrate Fio2 to keep Spo2 > or = 90% DuoNebs and CPT as needed IS hourly while awake for pulmonary hygiene Out of bed to chair as tolerated CARDIOVASCULAR: Follow hemodynamics. Titrate vasopressor to keep MAP >65 or systolic blood pressure >95mmHg Drips: Heparin drip discontinued per Cardiology Nitroglycerin drip per protocol LINES: PIV GI & NUTRITION: Continue nutritional support Aspirations precautions Prokinetic agents and laxatives as needed KIDNEYS & ELECTROLYTES: Strict monitoring of intake and output Daily weights Avoid nephrotoxic agents Monitor electrolytes and replace as needed Goal urine output of 30mL/hr or 0.5mL/kg/hr Yeager catheter ENDOCRINE: Maintain blood glucose between 100-180 at all times. Insulin sliding scale for blood glucose management INFECTIOUS DISEASE: Trend temperature. Soto-culture if febrile. Micro: [ ] Respiratory culture Blood cultures urine culture Antibiotics: [ ] Cefepime flagyl Zyvox HEMATOLOGY & COAGULATION: Monitor H&H. Keep Hgb > 7 Transfuse 1 unit of PRBC for Hgb < 7 Transfuse 1 pack of platelets of platelets < 20, 000 Watch for any signs and symptoms of bleeding SKIN: Pressure ulcer prevention per facility protocol Rehab: PT/OT Prophylaxis: GI: Protonix DVT: scd Code Status: Full Resuscitation Disposition: [ icu] Case was discussed and seen with my supervising physician. The above plan was formulated and agreed upon. NANO FERGUSON PAC Sep 03, 2025 14:24
[2025-09-04] VITALS (7 sets, daily range): PULSE 64–69; RESP 18–105; O2SAT 96–99
--- NOTE | 2025-09-04 00:51 | PN ---
INFECTIOUS DISEASE FOLLOWUP NOTE DATE OF SERVICE: 09/02/2025 SUBJECTIVE: The patient is seen and examined at bedside today. ____. The patient was transferred to ICU. The patient has been ____. ____. PHYSICAL EXAMINATION: VITAL SIGNS: Temperature ____. EYES: No icterus. Pupils equal and reactive. HENT: No oral thrush seen. Moist oral mucosa. NECK: Supple. No JVD or thyromegaly. LUNGS: Good air entry. No rales, no rhonchi. CARDIOVASCULAR: S1 and S2 regular. No murmur heard. ABDOMEN: Soft, nontender. Bowel sounds present. CENTRAL NERVOUS SYSTEM: Awake, alert, oriented x 3. No focal deficits. SKIN: No rashes, no itchiness. LYMPHATIC: No peripheral lymphadenopathy. BACK: No deformities, no pressure ulcer. ASSESSMENT: An 85-year-old female with multiple problems. * Urinary tract infection. * Diabetes mellitus. . * Respiratory failure. * Heart failure. * Pneumonia. PLAN: * Continue cefepime. * Continue nutritional support. * Continue . * Continue on telemetry. * Continue GI prophylaxis. * Monitor electrolytes. * The patient will be followed up closely. TID: [id number] RECEIPT: [id number]
--- NOTE | 2025-09-04 02:38 | HMCIMG ---
EXAM: CR Chest, 1 View. CLINICAL HISTORY: PP (Post-procedure). COMPARISON: Prior radiograph dated 02-09-2025. FINDINGS: LUNGS: Improving multifocal airspace subtle opacities are noted involving the right lung and left middle and lower zones, consistent with resolving alveolar airspace disease. No new consolidation or collapse identified. Perihilar prominence noted with mild pulmonary vascular congestion. PLEURAL SPACES: No pleural effusion. No pneumothorax detected. MEDIASTINUM: Cardiomediastinal silhouette is within normal limits. No widening or shift. BONES: Visualized bony structures are intact. No acute osseous abnormality seen. IMPRESSION: 1. Improving multifocal airspace opacities in the right lung and left middle and lower zones, consistent with resolving alveolar airspace disease. No new consolidation or collapse. 2. Mild pulmonary vascular congestion with perihilar prominence, mildly increased compared to the prior chest radiograph. 3. No pleural effusion or pneumothorax. 4. Cardiomediastinal silhouette within normal limits. 5. No acute osseous abnormality. /[place]
--- NOTE | 2025-09-04 06:52 | NUR ---
report given to jignesh RN downgraded pending hosp[facility] and family would like to transfer back to [facility].
[2025-09-04] MEDS: LACTOSE-REDUCED VAN/STB/CHOC 237 ML BOTTLE PO SCH (08:00)
--- NOTE | 2025-09-04 12:29 | PN ---
[facility] PROGRESS NOTE Date Patient Seen: Sep 04, 2025 Time of Visit: 12:25 Supervising Physician: Dr Issac Mcmanus Primary Care Physician: CHANCE LAWS MD ATTENDING PHYSICIAN: DR JOSE WELSH Outpatient Specialists: [ ] Inpatient Consults: CCM - BIS, CARDIOLOGY - DR BHATTI PROBLEM LIST: AFib with RVR, new onset NSTEMI II Acute hypoxemic respiratory failure Suspected healthcare associated pneumoniae Acute complicated cystitis POA Acute on chronic CKD CAD, chronic total occlusion of the LAD Normocytic normochromic anemia Hypertension Hyperlipidemia Hyperglycemia in the presence of Type 2 diabetes mellitus Hypothyroidism INTERVAL HISTORY: Patient remains in AFib rate more controlled, Patient states that she is not interested in any type procedures and she is not a candidate for some Family has decided to proceed with hospice and has requested transitioned to comfort ca Plan: Critical Care to sign off, thank you for allowing us to participate in the care of your patient. Patient to be placed on comfort care measures and transition to hospice services outpatient. Total care time 36 minutes, time excludes any procedures or educational time. REVIEW OF SYSTEMS: Const: no fever, fatigue, or weight changes Eyes: no recent vision problems ENT: No congestion, ear pain, or sore throat C/V: + chest pain, palpitations, shortness for breath Resp:+ shortness of the breath GI: No abdominal pain, nausea, vomiting, constipation, or diarrhea : No incontinence of or dyuria M/S: No joint or pain swelling Skin: No rash Neuro: no headache, focal numbness, or weakness, dizziness or seizures Psych: no depression or anxiety Heme: no abnormal bruising or bleeding Lymph: no swollen glands PHYSICAL EXAM: GENERAL: alert, weak, awake oriented x 3 HEENT: EOMI, Sclera non icteric, moist mucosa NECK: Supple, no JVD, trachea midline LUNGS: Diminished breath sounds bilaterally. No wheezes HEART: Regular rate and rhythm. Normal S1 and S2, without murmurs ABD: Abdomen soft, nontender. Bowel sounds present EXT: No clubbing cyanosis or edema NEURO: Alert and oriented to person, follows commands Vital Signs (last 8hr) Date Time Temp Pulse Resp B/P (MAP) Pulse Ox O2 Delivery O2 Flow Rate FiO2 09/04/25 09:05 96 Room Air* 0 21 09/04/25 06:51 18 N/A Room Air 21 LABS: Hematology Labs: Test 09/03/25 03:28 Range/Units White Blood Count 16.0 H 4.8-10.8 K/uL Red Blood Count 2.46 L 4.00-5.50 MIL/uL Hemoglobin 7.9 L 12.0-16.0 g/dL Hematocrit 22.9 L 36-48 % Mean Corpuscular Volume 93.1 79-99 fL Mean Corpuscular Hemoglobin 32.1 27.0-33.0 pg Mean Corpuscular Hemoglobin Concent 34.5 32.0-36.0 g/dL Red Cell Distribution Width 14.3 11.0-15.5 % Platelet Count 233 130-400 K/uL Mean Platelet Volume 10.3 7.5-10.5 fL Nucleated Red Blood Cells 0.2 H 0.0-0.19 % Chemistry Labs: Test 09/03/25 11:02 09/03/25 03:28 Range/Units Whole Blood Glucose 202 H 70-110 MG/DL Sodium Level 133 L 136-145 mmol/L Potassium Level 4.1 3.5-5.1 mmol/L Chloride Level 96 L 101-111 mmol/L Carbon Dioxide Level 21 21-32 mmol/L Blood Urea Nitrogen 104 *H 7-18 mg/dL Creatinine 4.0 H 0.5-1.0 mg/dL Glomerular Filtration Rate Calc 10 >90 mL/min Random Glucose 117 H 70-105 mg/dL Total Calcium 7.6 L 8.5-10.1 mg/dL Magnesium Level 1.90 1.80-2.40 mg/dL Total Bilirubin 0.5 0.2-1.0 mg/dL Aspartate Amino Transf (AST/SGOT) 35 10-37 U/L Alanine Aminotransferase (ALT/SGPT) 15 12-78 U/L Alkaline Phosphatase 57 50-136 U/L B-Type Natriuretic Peptide 2500 H 0-100 pg/mL Total Protein 5.6 L 6.0-8.3 g/dL Albumin 1.7 L 3.5-5.0 g/dL Coagulation Labs: Test 09/03/25 13:02 Range/Units Prothrombin Time 14.5 H 9.6-11.6 SEC Prothromb Time International Ratio 1.42 H 0.85-1.15 Activated Partial Thromboplast Time 29.7 26.3-35.5 SEC DIAGNOSTICS / RADIOLOGY RESULTS: [ ] PLAN NEURO: Minimize central acting medications as possible. Maintain fall precautions, adequate lighting during the day PULMONARY: Supplemental 02 as needed. Maintain aspiration precautions at all times CARDIOVASCULAR: Follow hemodynamics. Vital signs per facility protocol GI & NUTRITION: Continue with nutritional support. Continue stool softeners and laxatives as needed. KIDNEYS & ELECTROLYTES: Strict monitoring of intake, output and overall fluid balance. Avoid nephrotoxic medications to the extent possible. Medications to be dosed according to renal function. Monitor electrolytes and replace as needed ENDOCRINE: Maintain blood glucose between 100-180 at all times. Hypoglycemia protocol in place INFECTIOUS DISEASE: Trend temperature, WBC and procalcitonin level Follow cultures, deescalate antibiotics as soon as possible. Panculture if new onset fever ONCOLOGY/HEMATOLOGY/COAGULATION: Monitor for s/s of bleeding Monitor hemoglobin, coagulation studies as needed SKIN: Pressure ulcer prevention per facility protocol Specialty mattress ORTHO/REHAB: Continue PT/OT Prophylaxis: Continue GI and DVT prophylaxis Code Status: Full Resuscitation Disposition: NANO CASTELLANOS PAC Sep 04, 2025 12:28
--- NOTE | 2025-09-04 12:34 | NUR ---
REPORT/TRANSFER/DOWNGRADE Report given to nurse Diana on Med/Surg floor. Patient's belongings gathered and with patient's family members. Patient to be transferred to room 324.
--- NOTE | 2025-09-04 13:33 | NUR ---
ACCEPTED BY [facility] and [facility] [id number] Per Tiara, pt is accepted for return with [facility] to [facility] Per Moris, Dme is ordered, pending delivery and OOHDNR is complete, Moris to place in chart. Sophie FLORES made aware
--- NOTE | 2025-09-04 14:08 | NUR ---
PT READY FOR DC per Moris, DME delivered to [facility], OOHDNR on chart, pt is ready for discharge. Sw notified Iris CM of this. per Moris Ortiz nurse made aware
--- NOTE | 2025-09-04 14:13 | NUR ---
Nutrition consult per protein supplements Reviewed labs, notes, and medications. Pt wheelchair bound, from [place], on 75 gm cho + easy to chew + on 1L fluid restriction, sedated, elevated BUN 104, elevated Cr 4, Na 133(L), BG 202 (H), vit. D 44.6 per chart review. 100 ml balance 09/03/25, 0%PO intake since admin, wt via supine scale, last BM 08/31/25, mild pitting, no ulcer, mild muscle loss, w/ GBW, Pt on comfort measures per nursing. Pt with non-severe PCM, Supplement thiamin 100 mg/day for 5-7 days + MVI QD for at least 10 days. If poor PO continues consider alternate means of nutrition. Recommendations: -Provide HH+ 75 gm cho+ ensure MAX TID w/ trays -[place] Pt's preferences -Monitor PO intake -Encourage PO intake as able -If poor PO intake continues consider appetite stimulant -Monitor BM -If no BM >3 days consider stool softener -Monitor electrolytes -Replenish electrolytes per protocol -Monitor wts -Reweigh as able -Order Vit D, vit b-12 labs to rule out deficiencies -Provide MVI QD -Texture per [employer] recs -Recommend Pt to follow up with PCP -Monitor goals of care RD to follow + available for consult per protocol Addendum: 09/04/25 at [address] Amended: Links added.
--- NOTE | 2025-09-04 15:12 | DS ---
Discharge Summary Hospital Course ASSESSMENT: Urinary tract infection with E coli. Acute hypoxic respiratory failure requiring oxygen support. Multifocal pneumonia. Non-STEMI. Sepsis. Nasal swab positive for MRSA. Heart failure. Acute on chronic renal failure. Leukocytosis. Rhabdomyolysis. Anemia with positive fecal occult blood. Diabetes mellitus. PLAN: Discharge patient to [facility] today under [facility]. This case was reviewed and discussed with my supervising physician Dr. Garcia and the above assessment and plan was formulated and agreed upon. ATTESTATION BY PHYSICIAN I have seen and examined the patient. I reviewed the documentation, medical decision making, and treatment plan as noted by the mid-level provider above. I agree with the findings and plan of care. BLAISE GARCIA MD, MIRTA L [facility] Sep 04, 2025 15:12
--- NOTE | 2025-09-04 20:41 | PN ---
NEPHROLOGY PROGRESS NOTE Date of Service: Sep 04, 2025 Time of Service: 0700 SUBJECTIVE: [ Patient was evaluated at bedside. Patient continues to decline hemodialysis; [facility] Patient and family have elected to transition to hospice care. ] REVIEW OF SYSTEMS CONSTITUTIONAL: Denies fever, chills, or fatigue. HEAD/FACE: No signs of trauma. EENT: Denies eye pain, blurred vision, double vision, or light sensitivity. RESPIRATORY: Denies shortness of breath, cough, wheezing CARDIOVASCULAR: Denies chest pain, palpitation, syncope GASTROINTESTINAL/ABDOMINAL: Denies abdominal pain, constipation, diarrhea, nausea or vomiting GENITOURINARY: Denies dysuria or hematuria. MUSCULOSKELETAL: Denies joint pain, tenderness, or trauma. INTEGUMENTARY: Denies rash or itchiness NEUROLOGICAL/PSYCH: Denies anxiety, depression, heat or cold intolerance. PHYSICAL EXAM EYES: Anicteric. Pupils equal and reactive. HENT: No oral thrush seen, moist Oral mucosa NECK: Supple LUNGS: Rales bilateral lobes CARDIOVASCULAR: RRR ABDOMEN: Soft, non tender, bowel sounds present, no organomegaly CENTRAL NERVOUS SYSTEM: Awake, alert, oriented x 3. No focal deficits. EXTREMITIES: No edema GENITOURINARY: Yeager Catheter present LABS: Laboratory: Test 09/03/25 13:02 09/03/25 11:02 09/03/25 03:28 Range/Units Prothrombin Time 14.5 H 9.6-11.6 SEC Prothromb Time International Ratio 1.42 H 0.85-1.15 Activated Partial Thromboplast Time 29.7 26.3-35.5 SEC Whole Blood Glucose 202 H 70-110 MG/DL White Blood Count 16.0 H 4.8-10.8 K/uL Red Blood Count 2.46 L 4.00-5.50 MIL/uL Hemoglobin 7.9 L 12.0-16.0 g/dL Hematocrit 22.9 L 36-48 % Mean Corpuscular Volume 93.1 79-99 fL Mean Corpuscular Hemoglobin 32.1 27.0-33.0 pg Mean Corpuscular Hemoglobin Concent 34.5 32.0-36.0 g/dL Red Cell Distribution Width 14.3 11.0-15.5 % Platelet Count 233 130-400 K/uL Mean Platelet Volume 10.3 7.5-10.5 fL Nucleated Red Blood Cells 0.2 H 0.0-0.19 % Sodium Level 133 L 136-145 mmol/L Potassium Level 4.1 3.5-5.1 mmol/L Chloride Level 96 L 101-111 mmol/L Carbon Dioxide Level 21 21-32 mmol/L Blood Urea Nitrogen 104 *H 7-18 mg/dL Creatinine 4.0 H 0.5-1.0 mg/dL Glomerular Filtration Rate Calc 10 >90 mL/min Random Glucose 117 H 70-105 mg/dL Total Calcium 7.6 L 8.5-10.1 mg/dL Magnesium Level 1.90 1.80-2.40 mg/dL Total Bilirubin 0.5 0.2-1.0 mg/dL Aspartate Amino Transf (AST/SGOT) 35 10-37 U/L Alanine Aminotransferase (ALT/SGPT) 15 12-78 U/L Alkaline Phosphatase 57 50-136 U/L B-Type Natriuretic Peptide 2500 H 0-100 pg/mL Total Protein 5.6 L 6.0-8.3 g/dL Albumin 1.7 L 3.5-5.0 g/dL DIAGNOSTICS / RADIOLOGY: [ ] ASSESSMENT: Acute on chronic kidney injury Underlying CKD stage 3 Sepsis NSTEMI Anemia Pleural Effusion/Vascular Congestion Leukocytosis BNP >5000 Hypocalcemia Hypoalbuminemia Heart Failure PLAN: 1. Acute on chronic kidney injury- Underlying CKD stage 3; etiology presumed hemodynamic in setting of heart failure. Probable cardiorenal component; patient has declined dialysis. Hold RAAS blockers, no NSAIDs; renal dose antibiotics; agree with diuresis to improve forward flow; furosemide 20mg IV q12hrs; continue with strict I&O; Fluid restriction 1 liter; we will hold diuretics today and repeat labs in the morning. ----NEPHROLOGY SIGNED OFF; PATIENT TRANSITIONING TO HOSPICE. 2. Sepsis/Leukocytosis- ID following; renal dose antibiotics; trend labs. 3. NSTEMI/Heart Failure -BNP >5000 ; LVEF is 25-30%, Stage II, diastolic dysfunction; hold diuresis at this time; cardiology following. 4. Anemia- keep hgb above 10%; epogen today; positive FOBT; GI consulted and has deferred intervention until patient's cardiovascular, pulmonary and renal status has stabilized. 5. Pleural Effusion/Vascular Congestion- agree with diuresis to improve forward flow; furosemide 20mg IV q12hrs; at this time we will hold for 24 hours and resume tomorrow morning. This visit was rendered and documented by Robinson Mata, MSN, SUPERVISOR CURING ROOM, [employer] and completed in collaboration with my supervising physician Tonja Arthur MD. ROBINSON MATA Sep 04, 2025 20:41
--- NOTE | 2025-09-04 22:56 | PN ---
NEPHROLOGY FOLLOWUP NOTE INTERVAL HISTORY: The patient was evaluated this morning. No family present. Discussed with nursing staff. Output 1400 mL reported. The patient reports weakness. Denies any chest pain, shortness of breath, fevers, or chills. PHYSICAL EXAMINATION: CURRENT VITAL SIGNS: Temperature 97.7, pulse 84, blood pressure 139/68, respiratory rate is 17, satting 98% currently on room air. GENERAL: The patient is awake. She is alert. She is oriented. Answering questions appropriately. CARDIAC: Regular rhythm and rate. CHEST: Coarse breath sounds anteriorly. ABDOMEN: Soft. EXTREMITIES: No edema. LABORATORY DATA: Sodium 134, potassium 3.7, chloride 93, bicarbonate 20, BUN is 102, creatinine 4.0, calcium is 7.6. ASSESSMENT: * [id number] kidney injury. * Underlying chronic kidney injury stage 3. * Hyponatremia. * Jrvkc-fc-bfzquia systolic heart failure. * Multifocal pneumonia. * Urinary tract infection. * Sepsis. * Acute hypoxic respiratory failure. * [id number] myocardial infarction . * Rhabdomyolysis. * Leukocytosis. * Anemia. * Fecal occult positive stool. * Type 2 diabetes. * Hypertension. PLAN: * Landf-az-bsaqfde kidney injury. No improvement noted in renal function. Stable urine output; however, diuretics are currently on hold. The patient without overt uremic symptoms. Electrolytes and volume are stable. No urgency for renal replacement therapy. We did have a long discussion with the patient's son, Dante, on the phone together with the patient. At this time, given comorbidities, discussed both risks and benefits of proceeding with renal replacement therapy. At this time, the patient's wishes are against a continued aggressive . The patient has been very clear with family as per Dante. The patient does not want to proceed with renal replacement therapy even if needed. Continue to hold diuretics, monitor output, manage conservatively from a renal standpoint as per patient's request. Avoid nephrotoxins, renal dose all medications, and we will continue to trend labs. TID: [id number] RECEIPT: [id number]
== END 2025-09-04 18:45 | disposition hospice, home (50) | DRG 871 ==
LOC: EDH 23:40 → EDHIP 08-28 02:10 → 2CH 08-28 14:01 → 4CH 08-31 10:25 → 2CH 09-03 11:02 → 2DH 09-04 06:55 → 3DH 09-04 12:39
PROVIDERS: ADMIT Internal Medicine Infectious Disease; ATTEND Internal Medicine Infectious Disease
PROC: 5A09357 Assistance with Respiratory Ventilation, Less than 24 Consecutive Hours, Continuous Positive Airway Pressure (ICD-10-PCS; principal; 2025-08-28)
DX: A41.9 Sepsis, unspecified organism (principal); I21.A1 Myocardial infarction type 2; J96.01 Acute respiratory failure with hypoxia; J18.9 Pneumonia, unspecified organism; I50.23 Acute on chronic systolic (congestive) heart failure; N17.9 Acute kidney failure, unspecified; I13.0 Hypertensive heart and chronic kidney disease with heart failure and stage 1 through stage 4 chronic kidney disease, or unspecified chronic kidney disease; N30.00 Acute cystitis without hematuria; E87.1 Hypo-osmolality and hyponatremia; M62.82 Rhabdomyolysis; R65.20 Severe sepsis without septic shock; I25.10 Atherosclerotic heart disease of native coronary artery without angina pectoris; E11.65 Type 2 diabetes mellitus with hyperglycemia; D64.9 Anemia, unspecified; E03.9 Hypothyroidism, unspecified; E83.42 Hypomagnesemia; Z66 Do not resuscitate; B96.20 Unspecified Escherichia coli [E. coli] as the cause of diseases classified elsewhere; E66.01 Morbid (severe) obesity due to excess calories; E78.00 Pure hypercholesterolemia, unspecified; I48.91 Unspecified atrial fibrillation; E11.22 Type 2 diabetes mellitus with diabetic chronic kidney disease; E83.51 Hypocalcemia; N18.30 Chronic kidney disease, stage 3 unspecified; E88.09 Other disorders of plasma-protein metabolism, not elsewhere classified; K21.9 Gastro-esophageal reflux disease without esophagitis; Z51.5 Encounter for palliative care; Z79.899 Other long term (current) drug therapy; Z80.0 Family history of malignant neoplasm of digestive organs; Z80.3 Family history of malignant neoplasm of breast; Z82.49 Family history of ischemic heart disease and other diseases of the circulatory system; Z99.3 Dependence on wheelchair
CPT/HCPCS: 36415; 36556; 36600; 71045; 71250; 74176; 76770; 80048; 80053; 81001; 82010; 82270; 82306; 82550; 82803; 82948; 83605; 83735; 83880; 84100; 84145; 84484; 85025; 85027; 85610; 85730; 87040; 87086; 87186; 87426; 87641; 87804; 87880; 93005; 93306; 93356; 94640; 94660; 94664; 96365; 96375; 99291; G0378; J0282; J0692; J1644; J1938; J2020; J2270; J2405; J2543; J2919; J3010; J3373; J3475; J3490; J7060; C1751; J0283; Q5106